=== PATIENT | female | born 1985 | race Two or more races ===

== ENCOUNTER → 2016-12-20 | Emergency (ER) | payer SELFPAY ==
[~2016-12-20] VITALS: Ht 154.9 cm; Wt 104.3 kg
[~2016-12-20] MED LIST: IBUPROFEN600 MG ORAL; Ketorolac 60mg Inj IM ONE; PEPCID20 MG ORAL
[2016-12-20 12:34] VITALS: BP 109/72
--- NOTE | 2016-12-21 13:31 | Emergency Room Report ---
History of Present Illness General Chief Complaint: Pain Source: Patient Present Illness HPI Patient is a 31-year-old female who presented after increased epigastric pain. Patient reported having increased burning sensation. Patient prior history of hiatal hernia. Patient stated that she been having increased symptoms with supine position spicy food. She denied recent black or bloody stools.The patient had moderate severity of symptoms. She had some mild nausea without vomiting. She denied any diarrhea or fever. Allergies: Coded Allergies: Shrimp (Verified Allergy, Unknown, 12/20/16) Patient History Past Medical History: see triage record Last Menstrual Period: on period Reviewed Nursing Documentation: PMH: Agreed, PSxH: Agreed Nursing Documentation-PMH Past Medical History: No Stated History Review of Systems All Other Systems: negative except mentioned in HPI Physical Exam Vital Signs Date Time Temp Pulse Resp B/P Pulse Ox O2 Delivery O2 Flow Rate FiO2 12/20/16 12:34 97.9 56 16 109/72 100 General Appearance: well appearing, no apparent distress, alert, GCS 15 Head: normocephalic, atraumatic ENT: hearing grossly normal, normal voice Neck: full range of motion, supple Respiratory: no respiratory distress, speaking full sentences Gastrointestinal: normal inspection, non tender, soft Musculoskeletal: no calf tenderness Neurologic: normal gait Psychiatric: mood/affect normal Skin: no rash Medical Decision Making Diagnostic Impression: Primary Impression: Hiatal hernia Additional Impression: Gastritis ER Course Patient presented for abdominal pain. Differential diagnoses included ischemic bowel, appendicitis, perforated viscus, abdominal aortic aneurysm, inferior myocardial infarction, viral gastroenteritis. Patient's benign exam and does not appear to require any further imaging or laboratory testing at this time Last Vital Signs Date Time Temp Pulse Resp B/P Pulse Ox O2 Delivery O2 Flow Rate FiO2 12/20/16 13:41 97.9 12/20/16 12:34 56 16 109/72 100 Status: improved Disposition: HOME, SELF-CARE Condition: Stable Scripts Ibuprofen* (MOTRIN*) 600 Mg Tablet 600 MG ORAL Q8H Y for For Pain, #30 TAB 0 Refills Prov: Dewayne Tellez 12/20/16 Famotidine (PEPCID) 20 Mg Tablet 20 MG ORAL DAILY, #7 TAB 0 Refills Prov: Dewayne Tellez 12/20/16 Patient Instructions: Gastritis, Adult, Hiatal Hernia Dewayne Tellez Dec 21, 2016 13:31
== END | disposition home or self-care (01) ==
LOC: EMR 13:20
DX: K44.9 Diaphragmatic hernia without obstruction or gangrene (principal); K29.70 Gastritis, unspecified, without bleeding; Z91.013 Allergy to seafood
CPT/HCPCS: 96372; 99283

== ENCOUNTER 2019-01-22 10:20 | Emergency (ER) | payer SELFPAY ==
[~2019-01-22] VITALS: Ht 154.9 cm; Wt 97.1 kg
[~2019-01-22 10:20] MED LIST changes: -Ketorolac 60mg Inj IM ONE
[2019-01-22] MEDS ORDERED: NKM (10:39)
--- NOTE | 2019-01-22 10:52 | NUR ---
ED Nurse Note: PT WALKED IN TO ER TODAY FROM HOME. AOX4. PT C/O MEDIAL ABDOMINAL PAIN, 06/29, RADIATING TO LOWER BACK X 2 WEEKS AGO. PT ALSO C/O NAUSEA BUT DENIES VOMITING OR DIARRHEA. PT STATES SHE ALSO NOTICED LEGS AND FEET SWELLING X 2 WEEKS AGO. ACTIVE BOWEL SOUNDS IN ALL QUADRANTS. ABDOMEN DISTENDED AND TENDER TO PALPATION. LAST BM X YESTERDAY WHICH PT STATES WAS FORMED. PT DENIES ANY BURNING OR PAINFUL URINATION OR INCREASE IN URINARY FREQUENCY. PT PRESENTS WITH NONPITTING SWELLING TO BILATERAL LOWER EXTREMITIES.
--- NOTE | 2019-01-22 10:52 | NUR ---
Note undone in EDM - 01/22/19 at 1057 by [facility] ED Nurse Note: PT WALKED IN TO ER TODAY FROM HOME. AOX4. PT C/O MEDIAL ABBDOMINAL PAIN, 9/10 X 2 WEEKS AGO. PT ALSO C/O NAUSEA BUT DENIES VOMITING OR DIARRHEA. PT STATES SHE ALSO NOTICED LEGS AND FEET SWELLING X 2 WEEKS AGO. ACTIVE BOWEL SOUNDS IN ALL QUADRANTS. ABDOMEN DISTENDED AND TENDER TO PALPATION. LAST BM X YESTERDAY WHICH PT STATES WAS FORMED. PT PRESENTS WITH NONPITTING SWELLING TO BILATERAL LOWER EXTREMITIES.
[2019-01-22 10:54] VITALS: BP 121/63
[2019-01-22] MEDS ORDERED: Morphine Sulfate 4mg/ml Inj (IV USE ONLY) ONE (11:56)
--- NOTE | 2019-01-22 11:57 | Emergency Room Report ---
History of Present Illness General Chief Complaint: Abdominal Pain Source: Patient Present Illness HPI 33-year-old female with a history of tubal ligation, no medical problems, comes to the ER with complaints of abdominal pain and back pain, she also reports his back pain rating to her abdomen bilaterally, she tried Motrin without relief, reports it has been going on for 2 weeks now and has been to other ERs and they just tell her to return if she has recurrent pain. Reports she has had similar pain in the past many years ago but cannot recall what triggered it. She reports the pain is not worse with eating, and she denies any other GI symptoms such as vomiting or diarrhea, denies urinary complaints, gynecologic complaints , fevers, chills, chest pain, shortness of breath, any other problems at all. Allergies: Coded Allergies: Shrimp (Verified Allergy, Unknown, 12/20/16) Patient History Past Medical History: see triage record Last Menstrual Period: 12/27/18 Reviewed Nursing Documentation: PMH: Agreed; PSxH: Agreed Nursing Documentation-PMH Past Medical History: No Stated History Review of Systems All Other Systems: negative except mentioned in HPI Physical Exam Vital Signs Date Time Temp Pulse Resp B/P (MAP) Pulse Ox O2 Delivery O2 Flow Rate FiO2 01/22/19 10:36 98.4 90 14 124/73 98 Room Air Sp02 EP Interpretation: reviewed, normal General Appearance: no apparent distress, alert, non-toxic Head: normocephalic Eyes: bilateral eye normal inspection, bilateral eye PERRL, bilateral eye EOMI ENT: normal ENT inspection, hearing grossly normal, normal pharynx, no angioedema, normal voice, moist mucus membranes Neck: normal inspection, full range of motion, supple, supple/symm/no masses Respiratory: chest non-tender, lungs clear, normal breath sounds, chest symmetrical, palpation of chest normal Cardiovascular #1: normal peripheral pulses, regular rate, rhythm Cardiovascular #2: 2+ radial (R), 2+ radial (L), 2+ dorsalis pedis (R), 2+ dorsalis pedis (L) Gastrointestinal: normal inspection, non tender, soft, no mass, no guarding, no rebound Rectal: deferred Genitourinary: normal inspection, no CVA tenderness Musculoskeletal: back normal, gait/station normal, normal range of motion, non- tender, no calf tenderness, Sheila's Sign negative Neurologic: alert, responsive, slip cover seamstress III-XII nml as tested, motor strength/tone normal, sensory intact, speech normal Psychiatric: judgement/insight normal, memory normal, mood/affect normal Skin: normal color, no rash, warm/dry, normal turgor Lymphatic: no adenopathy Medical Decision Making Diagnostic Impression: Primary Impression: Abdominal pain ER Course Patient reports abdominal pain, back pain, bilateral leg swelling, however there is no objective leg swelling at all, not even ankle edema. She has no palpable cords, negative Homans sign, and excellent pulses. Abdominal exam is also benign with no focal tenderness. Patient had a normal KUB, soft nontender abdomen, normal pulse examination, and wanted even more pain meds after first dose of morphine. I will give her a dose of Bentyl and discharged with Bentyl, follow-up with the PMD for GI referral. Has had no diarrhea, no vomiting here, chest pain, with a normal workup. Other X-Ray Diagnostic Results Other X-Ray Diagnostic Results : X-Ray ordered: kub # of Views/Limited Vs Complete: 1 View Indication: Pain EP Interpretation: Yes Interpretation: no dislocation, no soft tissue swelling, no fractures, nonspecific bowel gas, no sbo Impression: No acute disease Electronically Signed by: Roro Hernandez MD Last Vital Signs Date Time Temp Pulse Resp B/P (MAP) Pulse Ox O2 Delivery O2 Flow Rate FiO2 01/22/19 10:54 98.2 81 13 121/63 100 Room Air Disposition: HOME, SELF-CARE Condition: Stable RORO HERNANDEZ M.D Jan 22, 2019 11:57
[2019-01-22] MEDS ORDERED: Morphine Sulfate 4mg/ml Inj (IV USE ONLY) IVP ONE (12:00)
[2019-01-22 12:11] LABS: APPEARANCE,URINE SLIGHTLY CLOUDY; BILIRUBIN, URINE NEGATIVE (NEGATIVE); COLOR,URINE PALE YELLOW; GLUCOSE, URINE (UA) NEGATIVE (NEGATIVE); KETONES,URINE NEGATIVE (NEGATIVE); LEUKOCYTE ESTERASE ,URINE NEGATIVE (NEGATIVE); NITRITE,URINE NEGATIVE (NEGATIVE); PH,URINE 5 (4.5-8.0); PROTEIN,URINE NEGATIVE (NEGATIVE); UROBILINOGEN,URINE NORMAL MG/DL (0.0-1.0)
[2019-01-22 12:13] LABS: BASOPHILS % (AUTO) 0.5 % (0.0-2.0); EOSINOPHILS % (AUTO) 2.6 % (0.0-3.0); HEMOGLOBIN 13.4 G/DL (12.0-16.0); LYMPHOCYTES % (AUTO) 17.7 % (20.0-45.0); MEAN CORPUSCULAR VOLUME 90 FL (80-99); MONOCYTES % (AUTO) 4.3 % (1.0-10.0); NEUTROPHILS % (AUTO) 74.9 % (45.0-75.0); PLATELET COUNT 317 K/UL (150-450); RED BLOOD COUNT 4.44 M/UL (4.20-5.40); RED CELL DISTRIBUTION WIDTH 11.5 % (11.6-14.8); WHITE BLOOD COUNT 9.1 K/UL (4.8-10.8)
[2019-01-22 12:16] LABS: ANION GAP 9 mmol/L (5-15); BLOOD UREA NITROGEN 16 mg/dL (7-18); CALCIUM 8.9 MG/DL (8.5-10.1); CARBON DIOXIDE 25 MMOL/L (21-32); CHLORIDE 105 MMOL/L (98-107); CREATININE 0.8 MG/DL (0.55-1.30); POTASSIUM 4.1 MMOL/L (3.5-5.1); SODIUM 139 MMOL/L (136-145)
[2019-01-22 12:28] LABS: ALANINE AMINOTRANSFERASE 36 U/L (12-78); ALBUMIN 3.3 G/DL (3.4-5.0); ALBUMIN/GLOBULIN RATIO 0.8 (1.0-2.7); ALKALINE PHOSPHATASE 104 U/L (46-116); ASPARTATE AMINO TRANSFERASE 22 U/L (15-37); BILIRUBIN,TOTAL 0.3 MG/DL (0.2-1.0)
--- NOTE | 2019-01-22 12:55 | NUR ---
ED Nurse Note: RADIOLOGY CALLED FOR XRAY.
[2019-01-22] MEDS ORDERED: COLACE100 MG ORAL (13:55)
[2019-01-22] MEDS ORDERED: DICYCLOMINE HCL10 MG PO (13:55)
--- NOTE | 2019-01-22 14:01 | Diagnostic Imaging Report ---
Indication: Abdominal pain Technique: Supine view of the abdomen Comparison: none Findings: Bowel gas pattern is unremarkable. No masses or unusual calcifications. Impression: Negative
[2019-01-22] MEDS ORDERED: Dicyclomine HCl 10mg/5ml oral soln ORAL ONE (14:15)
[2019-01-22] MEDS ORDERED: ZOFRAN4 M1 ORAL (14:15)
[2019-01-22 14:25] VITALS: BP 127/72
--- NOTE | 2019-01-22 14:25 | NUR ---
ER Nurse Note: PT LAYING PEACEFULLY IN BED IN NAD. AOX4. PRESCRIPTIONS AND DISCHARGE PAPERWORK EXPLAINED TO PT. PT VERBALIZES UNDERSTANDING AND ALL QUESTIONS ANSWERED. PRESCRIPTIONS AND DISCHARGE PAPERWORK GIVEN TO PT, IV AND ID WRISTBAND REMOVED. PT WALKED OUT OF ER WITH STEADY GAIT AND ALL BELONGINGS.
== END 2019-01-22 14:25 | disposition home or self-care (01) ==
LOC: EMR 11:50
DX: R10.9 Unspecified abdominal pain (principal); M54.9 Dorsalgia, unspecified
CPT/HCPCS: 36415; 74018; 80053; 81003; 81025; 83690; 83880; 84484; 85025; 96374; 96375; 99284; J2270; J2405

== ENCOUNTER 2019-06-25 18:51 | Emergency (ER) | payer SELFPAY ==
[~2019-06-25] VITALS: Ht 154.9 cm; Wt 100.2 kg
[~2019-06-25 18:51] MED LIST changes: +COLACE100 MG ORAL; +DICYCLOMINE HCL10 MG PO; +NKM; +ZOFRAN4 M1 ORAL
[2019-06-25] MEDS ORDERED: TRAMADOL HCL50 MG ORAL (19:06)
--- NOTE | 2019-06-25 19:15 | NUR ---
ED Nurse Note: Recieved pt from home, c/o severe 07/29 headache w/ dizziness and sorrethroat, pt voice is hoarse, states has been for 1 week, pt seen by another MD and given meds but not effective, pt denies fevers, diarrhea, nausea or vomiting, pt denies any other complaitns or discomforts.
[2019-06-25] MEDS ORDERED: Meclizine 25mg tab ORAL ONE (19:30)
[2019-06-25] MEDS ORDERED: Cyclobenzaprine 10mg Tab ORAL ONE (20:00)
[2019-06-25] MEDS ORDERED: CYCLOBENZAPRINE10 MG ORAL (20:12)
[2019-06-25 20:20] VITALS: BP 126/81
[2019-06-25 20:30] VITALS: BP 121/85
[2019-06-25] MEDS ORDERED: MECLIZINE HCL25 MG ORAL (20:30)
--- NOTE | 2019-06-25 20:30 | NUR ---
ER DISCHARGE NOTE: Patient is cleared to be discharged per ERMD, pt is aox4, on room air, with stable vital signs. pt was given dc and prescription instructions, pt was able to verbalize understanding, pt id band removed without complications. pt is able to ambulate with steady gait. pt took all belongings.
--- NOTE | 2019-06-25 20:49 | Emergency Room Report ---
History of Present Illness General Chief Complaint: Headache Source: Patient Present Illness HPI 33-year-old female with h/o vertigo complaining intermittent headache x 2 weeks , with dizziness and nausea. Pain is 8/10, described as pressure and tight. Denies sudden onset. Denies headache as "being worst headache of life." Denies vision change, numbness, weakness. Normal gait. No bowel/bladder incontinence.. Allergies: Coded Allergies: Shrimp (Verified Allergy, Unknown, 12/20/16) Patient History Past Medical History: none Past Surgical History: Social History: Denies: smoking, alcohol use, drug use Last Menstrual Period: 06/21/2019 Nursing Documentation-[facility] Past Medical History: No Stated History Review of Systems All Other Systems: negative except mentioned in HPI Physical Exam Vital Signs Date Time Temp Pulse Resp B/P (MAP) Pulse Ox O2 Delivery O2 Flow Rate FiO2 06/25/19 19:01 98.6 81 16 121/85 (97) 98 Room Air Sp02 EP Interpretation: reviewed, normal General Appearance: no apparent distress, alert, GCS 15, non-toxic Eyes: bilateral eye normal inspection, bilateral eye PERRL Respiratory: chest non-tender, lungs clear, normal breath sounds, speaking full sentences Cardiovascular #1: regular rate, rhythm, no edema Neurologic: alert, oriented x3, responsive, motor strength/tone normal, sensory intact, normal gait, speech normal Skin: no rash, warm/dry Medical Decision Making PA Attestation This patient was seen under the direct supervision of Dr. George, who directed all aspects of care and diagnostic interpretation. Diagnostic Impression: Primary Impression: Headache ER Course ED course HPI: 33-year-old female with h/o vertigo complaining intermittent headache x 2 weeks , with dizziness and nausea. Pain is 8/10, described as pressure and tight. Denies sudden onset. Denies headache as "being worst headache of life." Denies vision change, numbness, weakness. Normal gait. No bowel/bladder incontinence. Pt has no focal neural, arm drift, facial droop, unilateral weakness or numbness , slurred speech, vision impair, therefore acute intracranial emergency is unlikely. HPI & PE consistent with: Headache, vertigo Orders/ Interventions: Patient has a benign exam and does not appear to require any imaging or laboratory testing at this time. Normal neuro exam, no focal neurologic deficits. Medicated with Zofran 4 mg, meclizine 25 mg and Flexeril 10 mg p.o. with improvement of symptoms. Disposition: At this time pt. is stable for d/c to home. She is discharged with prescription for meclizine 25 mg once daily and Flexeril 10mg qhs. Will provide printed patient care instructions, and any necessary prescriptions. Care plan and follow up instructions have been discussed with the patient prior to discharge. Please note that this Emergency Department Report was dictated using [employer] psychiatrist technology software, occasionally this can lead to erroneous entry secondary to interpretation by the dictation equipment. Last Vital Signs Date Time Temp Pulse Resp B/P (MAP) Pulse Ox O2 Delivery O2 Flow Rate FiO2 06/25/19 19:01 98.6 81 16 121/85 (97) 98 Room Air Status: unchanged Disposition: HOME, SELF-CARE Condition: Stable Scripts Meclizine Hcl* (MECLIZINE*) 25 Mg Tablet 25 MG ORAL DAILY, #10 TAB Prov: Brandon Desouza 06/25/19 Cyclobenzaprine Hcl* (FLEXERIL*) 10 Mg Tablet 10 MG ORAL BEDTIME for 10 Days, #10 TAB 0 Refills Prov: Brandon Desouza 06/25/19 Referrals: NOT CHOSEN IPA/MD,REFERRING (PCP) [facility] Suzanne Heller Comp. [facility] Patient Instructions: Vertigo, [id number], General Headache Without Cause Additional Instructions: Take prescription as prescribed. Follow-up with PCP in 2 to 3 days or return to ER if worsening symptoms, new symptoms or sudden change in condition. Brandon Desouza Jun 25, 2019 20:49
== END 2019-06-25 20:30 | disposition home or self-care (01) ==
LOC: EMR 20:26
DX: R51 Headache (principal); Z91.013 Allergy to seafood
CPT/HCPCS: 99282

== ENCOUNTER 2020-01-14 18:42 | Inpatient (IN) | payer MEDICAID ==
[~2020-01-14] VITALS: Ht 154.9 cm; Wt 102.1 kg
[~2020-01-14 18:42] MED LIST changes: +CYCLOBENZAPRINE10 MG ORAL; +MECLIZINE HCL25 MG ORAL; +TRAMADOL HCL50 MG ORAL
--- NOTE | 2020-01-14 19:14 | Emergency Room Report ---
History of Present Illness General Chief Complaint: Abdominal Pain Source: Patient Present Illness HPI 34-year-old female presents with nausea, vomiting, epigastric pain that radiates to the back, after eating earlier in the morning, she endorses a sharp pain no alleviating factors severity is moderate, intermittent, she denies any chest pain or shortness of breath, patient states this is been ongoing intermittently for the past 2 weeks, patient reports a past medical history significant for tubal ligation, 3 C-sections, patient presents for evaluation Allergies: Coded Allergies: IODINE (Verified Allergy, Unknown, 01/14/20) Shrimp (Verified Allergy, Unknown, 12/20/16) COVID-19 Screening Contact w/high risk pt: No Recent Travel to affected area: No Experienced COVID-19 symptoms?: No Patient History Past Medical History: see triage record Last Menstrual Period: DECEMBER 2019 Reviewed Nursing Documentation: PMH: Agreed; PSxH: Agreed Nursing Documentation-PMH Past Medical History: No Stated History Review of Systems All Other Systems: negative except mentioned in HPI Physical Exam Vital Signs Date Time Temp Pulse Resp B/P (MAP) Pulse Ox O2 Delivery O2 Flow Rate FiO2 01/14/20 18:48 98.4 75 18 123/79 (94) 97 Room Air Sp02 EP Interpretation: reviewed, normal General Appearance: well appearing, no apparent distress, alert Head: normocephalic, atraumatic Eyes: bilateral eye PERRL, bilateral eye EOMI ENT: uvula midline, moist mucus membranes Neck: supple, thyroid normal, supple/symm/no masses Respiratory: lungs clear, no respiratory distress, no retraction, no accessory muscle use Cardiovascular #1: normal peripheral pulses, regular rate, rhythm, no edema, no gallop, no murmur Gastrointestinal: soft, no guarding, no rebound, tenderness - epigastrically, right upper quadrant Musculoskeletal: normal inspection Neurologic: alert, oriented x3 Psychiatric: mood/affect normal Skin: no rash, warm/dry Medical Decision Making Diagnostic Impression: Primary Impression: Impacted gallstone of gallbladder ER Course 34-year-old female presents with abdominal pain concerning for cholecystitis versus cholelithiasis versus choledocholithiasis Ultrasound shows an impacted gallstone in the neck of the gallbladder Patient requiring multiple rounds of pain control patient will need to be admitted for possible surgical intervention Patient admitted to Dr. Rocha Laboratory Tests Test 01/14/20 19:10 White Blood Count 8.5 K/UL (4.8-10.8) Red Blood Count 4.87 M/UL (4.20-5.40) Hemoglobin 14.6 G/DL (12.0-16.0) Hematocrit 44.6 % (37.0-47.0) Mean Corpuscular Volume 92 FL (80-99) Mean Corpuscular Hemoglobin 30.1 PG (27.0-31.0) Mean Corpuscular Hemoglobin Concent 32.8 G/DL (32.0-36.0) Red Cell Distribution Width 12.0 % (11.6-14.8) Platelet Count 386 K/UL (150-450) Mean Platelet Volume 7.0 FL (6.5-10.1) Neutrophils (%) (Auto) 59.1 % (45.0-75.0) Lymphocytes (%) (Auto) 35.1 % (20.0-45.0) Monocytes (%) (Auto) 3.3 % (1.0-10.0) Eosinophils (%) (Auto) 1.6 % (0.0-3.0) Basophils (%) (Auto) 0.9 % (0.0-2.0) Prothrombin Time 9.6 SEC (9.30-11.50) Prothrombin Time INR 0.9 (0.9-1.1) Activated Partial Thromboplast Time 28 SEC (23-33) Urine Color Pale yellow Urine Appearance Clear Urine pH 5 (4.5-8.0) Urine Specific [place] 1.010 (1.005-1.035) Urine Protein Negative (NEGATIVE) Urine Glucose (UA) Negative (NEGATIVE) Urine Ketones Negative (NEGATIVE) Urine Blood Negative (NEGATIVE) Urine Nitrite Negative (NEGATIVE) Urine Bilirubin Negative (NEGATIVE) Urine Urobilinogen Normal MG/DL (0.0-1.0) Urine Leukocyte Esterase Negative (NEGATIVE) Urine HCG, Qualitative Negative (NEGATIVE) Sodium Level 137 MMOL/L (136-145) Potassium Level 3.8 MMOL/L (3.5-5.1) Chloride Level 101 MMOL/L (98-107) Carbon Dioxide Level 25 MMOL/L (21-32) Anion Gap 11 mmol/L (5-15) Blood Urea Nitrogen 18 mg/dL (7-18) Creatinine 0.7 MG/DL (0.55-1.30) Estimated Glomerular Filtration Rate > 60 mL/min (>60) Glucose Level 88 MG/DL (74-106) Calcium Level 9.3 MG/DL (8.5-10.1) Total Bilirubin 0.2 MG/DL (0.2-1.0) Aspartate Amino Transferase (AST) 19 U/L (15-37) Alanine Aminotransferase (ALT) 32 U/L (12-78) Alkaline Phosphatase 109 U/L (46-116) Total Protein 8.5 G/DL (6.4-8.2) H Albumin 4.3 G/DL (3.4-5.0) Globulin 4.2 g/dL Albumin/Globulin Ratio 1.0 (1.0-2.7) Lipase 135 U/L (73-393) Human Chorionic Gonadotropin, Quant < 1 mIU/mL (1-6) L CT/MRI/US Diagnostic Results CT/MRI/US Diagnostic Results : Impression Final Report EXAM: US Abdomen Complete CLINICAL HISTORY: ABD PAIN TECHNIQUE: Real-time ultrasound of the abdomen with image documentation. COMPARISON: No relevant prior studies available. FINDINGS: Liver: No significant abnormality. No mass. No intrahepatic bile duct dilation. Gallbladder: A 1.2 cm gallstone is present in the gallbladder. No gallbladder wall thickening or pericholecystic fluid. Common bile duct: Unremarkable as visualized. No stones. No dilation. Pancreas: Unremarkable as visualized. Kidneys: No significant abnormality. No stones. No solid mass. No hydronephrosis. Spleen: No significant abnormality. No splenomegaly. Aorta: No significant abnormality. No aneurysm. Inferior vena cava: No significant abnormality. IMPRESSION: Cholelithiasis without sonographic evidence of acute cholecystitis. Radiologist: Amanda Pardo MD Electronically Signed: 01/14/20 19:53 Study ready at 19:46 and initial results transmitted at 19:53 Last Vital Signs Date Time Temp Pulse Resp B/P (MAP) Pulse Ox O2 Delivery O2 Flow Rate FiO2 01/14/20 18:48 98.4 75 18 123/79 (94) 97 Room Air Disposition: ADMITTED INPATIENT Condition: Stable Jim Long MD Jan 14, 2020 19:14
[2020-01-14] MEDS ORDERED: Ketorolac 30mg Inj IV ONE (19:15)
[2020-01-14] MEDS ORDERED: Morphine Sulfate 4mg/ml Inj (IV USE ONLY) IVP ONE ×2 (19:15→20:00)
[2020-01-14 19:24] VITALS: BP 123/79
--- NOTE | 2020-01-14 19:26 | NUR ---
ER Nurse Note: Pt walked in c/o abd pain that radaites to back for the past 2 weeks. Pt stated pain is getting worse with n/v/d. Pt noted slight blood in her vomit and diarrhea. Pt stated pain is worse after she eats. Pt stated pain is worse on palpation; bowel sounds heard in all quadrants. IV established, blood and urine collected and sent. All meds given per ERMD orders; US at bedside. Will continue to montior.
[2020-01-14 19:29] LABS: BASOPHILS % (AUTO) 0.9 % (0.0-2.0); EOSINOPHILS % (AUTO) 1.6 % (0.0-3.0); HEMATOCRIT 44.6 % (37.0-47.0); HEMOGLOBIN 14.6 G/DL (12.0-16.0); LYMPHOCYTES % (AUTO) 35.1 % (20.0-45.0); MEAN CORPUSCULAR VOLUME 92 FL (80-99); MONOCYTES % (AUTO) 3.3 % (1.0-10.0); NEUTROPHILS % (AUTO) 59.1 % (45.0-75.0); PLATELET COUNT 386 K/UL (150-450); RED BLOOD COUNT 4.87 M/UL (4.20-5.40); WHITE BLOOD COUNT 8.5 K/UL (4.8-10.8)
[2020-01-14 19:31] LABS: APPEARANCE,URINE CLEAR; BILIRUBIN, URINE NEGATIVE (NEGATIVE); COLOR,URINE PALE YELLOW; GLUCOSE, URINE (UA) NEGATIVE (NEGATIVE); KETONES,URINE NEGATIVE (NEGATIVE); LEUKOCYTE ESTERASE ,URINE NEGATIVE (NEGATIVE); NITRITE,URINE NEGATIVE (NEGATIVE); PH,URINE 5 (4.5-8.0); PROTEIN,URINE NEGATIVE (NEGATIVE); UROBILINOGEN,URINE NORMAL MG/DL (0.0-1.0)
[2020-01-14 19:49] LABS: ANION GAP 11 mmol/L (5-15); BLOOD UREA NITROGEN 18 mg/dL (7-18); CALCIUM 9.3 MG/DL (8.5-10.1); CARBON DIOXIDE 25 MMOL/L (21-32); CHLORIDE 101 MMOL/L (98-107); CREATININE 0.7 MG/DL (0.55-1.30); POTASSIUM 3.8 MMOL/L (3.5-5.1); SODIUM 137 MMOL/L (136-145)
[2020-01-14 19:51] LABS: INR 0.9 (0.9-1.1)
[2020-01-14 19:53] LABS: ALANINE AMINOTRANSFERASE 32 U/L (12-78); ALBUMIN 4.3 G/DL (3.4-5.0); ALKALINE PHOSPHATASE 109 U/L (46-116); ASPARTATE AMINO TRANSFERASE 19 U/L (15-37); BILIRUBIN,TOTAL 0.2 MG/DL (0.2-1.0)
--- NOTE | 2020-01-14 19:54 | Diagnostic Imaging Report ---
EXAM: US Abdomen Complete CLINICAL HISTORY: ABD PAIN TECHNIQUE: Real-time ultrasound of the abdomen with image documentation. COMPARISON: No relevant prior studies available. FINDINGS: Liver: No significant abnormality. No mass. No intrahepatic bile duct dilation. Gallbladder: A 1.2 cm gallstone is present in the gallbladder. No gallbladder wall thickening or pericholecystic fluid. Common bile duct: Unremarkable as visualized. No stones. No dilation. Pancreas: Unremarkable as visualized. Kidneys: No significant abnormality. No stones. No solid mass. No hydronephrosis. Spleen: No significant abnormality. No splenomegaly. Aorta: No significant abnormality. No aneurysm. Inferior vena cava: No significant abnormality. IMPRESSION: Cholelithiasis without sonographic evidence of acute cholecystitis.
--- NOTE | 2020-01-14 20:12 | NUR ---
ER Nurse Note: Pt stated pain; pain meds given and will reassess. Pt VSS, no signs of distress. No n/v. Will continue to montior.
[2020-01-14 20:14] VITALS: BP 130/76
--- NOTE | 2020-01-14 20:55 | NUR ---
ER Nurse Note: Report given to PEGGY Almendarez for continutiy of care. Pt ambulatory, VSS, no signs of distress.
[2020-01-14 20:56] VITALS: BP 126/78
--- NOTE | 2020-01-14 21:20 | NUR ---
NURSE NOTES: Received report from [facility]Y [facility] ED. Pt arrived to the unit @2120 via gurney. Vitals 97.3F 131/99 BP 100% O2 90HR. Pt c/o pain 10/10 on ABD. Pt is ambulatory and on room air, AAO x 4. Able to make needs known. All belongings reviewed. Orientation to the facility and unit given. Family at bedside. Admission orders entered already. IV site intact. Skin is intact. Pt took ibuprofen and vitamin D from home but doesn't remember dose. Bed locked, lowest position, alarm on, side rails up, call light within reach. Will continue to monitor.
[2020-01-14] MEDS ORDERED: Morphine Sulfate 4mg/ml Inj (IV USE ONLY) IVP PRN (21:30)
[2020-01-14] MEDS ORDERED: LORazepam Inj 2mg/ml 1ml IV PRN (21:30)
[2020-01-14] MEDS: Piperacillin/Tazobactam 3.375 GM in NS 110 ML IVPB SCH (22:50)
[2020-01-14] MEDS: D5 1/2NS 1,000 ML IV SCH (22:50)
[2020-01-14] MEDS: Morphine Sulfate 4mg/ml Inj (IV USE ONLY) IVP PRN (23:05)
[2020-01-14] MEDS ORDERED: IBUPROFEN200 MG ORAL (23:47)
[2020-01-14] MEDS ORDERED: vitamin d (23:47)
[2020-01-15] VITALS: BP 118/70
[2020-01-15] MEDS: Morphine Sulfate 4mg/ml Inj (IV USE ONLY) IVP PRN ×4 (03:21→19:57)
[2020-01-15 04:00] VITALS: BP 116/64
[2020-01-15] MEDS: Piperacillin/Tazobactam 3.375 GM in NS 110 ML IVPB SCH ×3 (06:00→22:38)
[2020-01-15 07:27] LABS: ALANINE AMINOTRANSFERASE 25 U/L (12-78); ALBUMIN 3.3 G/DL (3.4-5.0); ALBUMIN/GLOBULIN RATIO 0.8 (1.0-2.7); ALKALINE PHOSPHATASE 87 U/L (46-116); ANION GAP 4 mmol/L (5-15); ASPARTATE AMINO TRANSFERASE 19 U/L (15-37); BILIRUBIN,TOTAL 0.4 MG/DL (0.2-1.0); BLOOD UREA NITROGEN 21 mg/dL (7-18); CALCIUM 8.8 MG/DL (8.5-10.1); CARBON DIOXIDE 29 MMOL/L (21-32); CHLORIDE 105 MMOL/L (98-107); CHOLESTEROL 181 MG/DL (< 200); CREATININE 0.9 MG/DL (0.55-1.30); HDL CHOLESTEROL 57 MG/DL (40-60); POTASSIUM 4.4 MMOL/L (3.5-5.1); SODIUM 138 MMOL/L (136-145); TRIGLYCERIDES 64 MG/DL (30-150)
[2020-01-15 07:31] LABS: BASOPHILS % (AUTO) 0.7 % (0.0-2.0); EOSINOPHILS % (AUTO) 2.5 % (0.0-3.0); HEMATOCRIT 38.6 % (37.0-47.0); HEMOGLOBIN 13.4 G/DL (12.0-16.0); LYMPHOCYTES % (AUTO) 34.9 % (20.0-45.0); MEAN CORPUSCULAR VOLUME 89 FL (80-99); PLATELET COUNT 313 K/UL (150-450); RED BLOOD COUNT 4.34 M/UL (4.20-5.40); WHITE BLOOD COUNT 7.8 K/UL (4.8-10.8)
--- NOTE | 2020-01-15 07:39 | NUR ---
HAND-OFF: Report given to PEGGY Barrera.
--- NOTE | 2020-01-15 07:45 | NUR ---
NURSE NOTES: Pt in bed comfortably. A&Ox4, able to make needs known. Breathing even and unlabored. c/o pain 10/10 on ABD. will administer pain med PRN as ordered. IV intact and IVF infusing. discussed with plans of care. Bed in lowest position. 2 Side rails up. Bed locked. Call light within reach. Will continue to monitor.
[2020-01-15 08:00] VITALS: BP 139/81
[2020-01-15] MEDS: Pantoprazole Inj IV SCH (08:46)
[2020-01-15] MEDS: D5 1/2NS 1,000 ML IV SCH ×2 (08:52→14:37)
[2020-01-15 12:00] VITALS: BP 101/55
--- NOTE | 2020-01-15 12:27 | History & Physical ---
History and Physical History & Physicial HP dictated #[id number] Tevin Rocha MD Jan 15, 2020 12:27
--- NOTE | 2020-01-15 14:06 | Consultation ---
History of Present Illness General Date patient seen: Jan 15, 2020 Reason for Hospitalization: Abdominal Pain Present Illness HPI 34-year-old female presents with nausea, vomiting, epigastric pain that radiates to the back, after eating earlier in the morning prior to admission, she endorses a sharp pain no alleviating factors severity is moderate, intermittent, she denies any chest pain or shortness of breath, patient states this is been ongoing intermittently for the past 2 weeks, patient reports a past medical history significant for tubal ligation, 3 C-sections, patient presents for evaluation. labs okay. us with gallstone. admitted for care. surgery called to evaluate. Allergies: Coded Allergies: IODINE (Verified Allergy, Unknown, 01/14/20) Shrimp (Verified Allergy, Unknown, 12/20/16) COVID-19 Screening Contact w/high risk pt: No Recent Travel to affected area: No Experienced COVID-19 symptoms?: No Medication History Scheduled PRN Ibuprofen (Ibuprofen*), 250 MG ORAL for For Pain, (Reported) Miscellaneous Medications [vitamin d], TAB, (Reported) Discontinued Medications Cyclobenzaprine Hcl* (Flexeril*), 10 MG ORAL BEDTIME Discontinued Reason: Pt stopped taking med Dicyclomine Hcl* (Dicyclomine Hcl*), 10 MG PO QID Discontinued Reason: Pt stopped taking med Docusate Sodium* (Colace*), 100 MG ORAL THREE TIMES A DAY Discontinued Reason: Pt stopped taking med Famotidine (Pepcid), 20 MG ORAL DAILY Discontinued Reason: Pt stopped taking med Ibuprofen* (Motrin*), 600 MG ORAL Q8H PRN for For Pain Discontinued Reason: Pt stopped taking med Meclizine Hcl* (Meclizine*), 25 MG ORAL DAILY Discontinued Reason: Pt stopped taking med No Known Medications* (NKM - No Known Medications*), 0 ., (Reported) Discontinued Reason: Pt stopped taking med Ondansetron (Zofran), 4 MG ORAL Q6H PRN for Nausea & Vomiting Discontinued Reason: Pt stopped taking med Tramadol Hcl* (Ultram*), 50 MG ORAL Q6H PRN for For Pain, (Reported) Discontinued Reason: Pt stopped taking med Patient History History Provided By: Patient Healthcare decision maker Resuscitation status Full Code Advanced Directive on File Past Medical/Surgical History Past Medical/Surgical History: (1) Gastritis (2) Hiatal hernia (3) Headache (4) Impacted gallstone of gallbladder Review of Systems Review of Symptoms General ROS: no weight loss or fever Psychological ROS: no depression or mood changes, no memory loss Ophthalmic ROS: no visual changes or eye irritation ENT ROS: no nasal congestion, hearing loss, dizziness Allergy and Immunology ROS: no allergic symptoms or urticaria Hematological and Lymphatic ROS: no swollen glands, unusual bleeding or bruising Endocrine ROS: no polyuria, polydipsia, weight changes, temperature intolerance Respiratory ROS: no cough, shortness of breath, or wheezing Cardiovascular ROS: no chest pain or dyspnea on exertion Gastrointestinal ROS: abdominal pain, no bright red blood in stool. Musculoskeletal ROS: no myalgias or arthralgias Neurological ROS: no TIA or stroke symptoms Dermatological ROS: no new or changing skin lesions, rashes or pruritis Physical Exam Physical Exam General appearance: alert, cooperative, no distress, appears stated age Head: Normocephalic, without obvious abnormality, atraumatic Eyes: conjunctivae/corneas clear. PERRL, EOM's intact. Fundi benign Throat: Lips, mucosa, and tongue normal. Teeth and gums normal Neck: supple, symmetrical, trachea midline, no adenopathy, thyroid: not enlarged, symmetric, no tenderness/mass/nodules, no carotid bruit and no JVD Lungs: clear to auscultation bilaterally Heart: regular rate and rhythm, S1, S2 normal, no murmur, click, rub or gallop Abdomen: soft, non-tender. Bowel sounds normal. No masses, no organomegaly Extremities: extremities normal, atraumatic, no cyanosis or edema Pulses: 2+ and symmetric Skin: Skin color, texture, turgor normal. No rashes or lesions Neurologic: Grossly normal Last 24 Hour Vital Signs Date Time Temp Pulse Resp B/P (MAP) Pulse Ox O2 Delivery O2 Flow Rate FiO2 01/15/20 12:00 98.2 65 20 101/55 (70) 97 01/15/20 09:16 97.2 01/15/20 08:00 97.2 81 20 139/81 (100) 96 01/15/20 04:00 97.5 68 20 116/64 (81) 97 01/15/20 00:00 98.3 75 20 118/70 (86) 98 01/14/20 23:29 Room Air 01/14/20 21:15 98.4 84 16 124/80 99 Room Air 01/14/20 20:56 98.4 88 18 126/78 100 Room Air 01/14/20 20:38 98.4 01/14/20 20:14 98.4 82 18 130/76 97 Room Air 01/14/20 19:43 98.4 01/14/20 19:43 98.4 01/14/20 19:24 98.4 75 18 123/79 97 Room Air 01/14/20 19:24 75 18 Room Air 01/14/20 18:48 98.4 75 18 123/79 (94) 97 Room Air Laboratory Tests Test 01/14/20 19:10 01/15/20 05:40 White Blood Count 8.5 K/UL (4.8-10.8) 7.8 K/UL (4.8-10.8) Red Blood Count 4.87 M/UL (4.20-5.40) 4.34 M/UL (4.20-5.40) Hemoglobin 14.6 G/DL (12.0-16.0) 13.4 G/DL (12.0-16.0) Hematocrit 44.6 % (37.0-47.0) 38.6 % (37.0-47.0) Mean Corpuscular Volume 92 FL (80-99) 89 FL (80-99) Mean Corpuscular Hemoglobin 30.1 PG (27.0-31.0) 30.8 PG (27.0-31.0) Mean Corpuscular Hemoglobin Concent 32.8 G/DL (32.0-36.0) 34.7 G/DL (32.0-36.0) Red Cell Distribution Width 12.0 % (11.6-14.8) 11.0 % (11.6-14.8) L Platelet Count 386 K/UL (150-450) 313 K/UL (150-450) Mean Platelet Volume 7.0 FL (6.5-10.1) 6.3 FL (6.5-10.1) L Neutrophils (%) (Auto) 59.1 % (45.0-75.0) 55.0 % (45.0-75.0) Lymphocytes (%) (Auto) 35.1 % (20.0-45.0) 34.9 % (20.0-45.0) Monocytes (%) (Auto) 3.3 % (1.0-10.0) 7.0 % (1.0-10.0) Eosinophils (%) (Auto) 1.6 % (0.0-3.0) 2.5 % (0.0-3.0) Basophils (%) (Auto) 0.9 % (0.0-2.0) 0.7 % (0.0-2.0) Prothrombin Time 9.6 SEC (9.30-11.50) Prothromb Time International Ratio 0.9 (0.9-1.1) Activated Partial Thromboplast Time 28 SEC (23-33) Urine Color Pale yellow Urine Appearance Clear Urine pH 5 (4.5-8.0) Urine Specific [place] 1.010 (1.005-1.035) Urine Protein Negative (NEGATIVE) Urine Glucose (UA) Negative (NEGATIVE) Urine Ketones Negative (NEGATIVE) Urine Blood Negative (NEGATIVE) Urine Nitrite Negative (NEGATIVE) Urine Bilirubin Negative (NEGATIVE) Urine Urobilinogen Normal MG/DL (0.0-1.0) Urine Leukocyte Esterase Negative (NEGATIVE) Urine HCG, Qualitative Negative (NEGATIVE) Sodium Level 137 MMOL/L (136-145) 138 MMOL/L (136-145) Potassium Level 3.8 MMOL/L (3.5-5.1) 4.4 MMOL/L (3.5-5.1) Chloride Level 101 MMOL/L (98-107) 105 MMOL/L (98-107) Carbon Dioxide Level 25 MMOL/L (21-32) 29 MMOL/L (21-32) Anion Gap 11 mmol/L (5-15) 4 mmol/L (5-15) L Blood Urea Nitrogen 18 mg/dL (7-18) 21 mg/dL (7-18) H Creatinine 0.7 MG/DL (0.55-1.30) 0.9 MG/DL (0.55-1.30) Estimat Glomerular Filtration Rate > 60 mL/min (>60) > 60 mL/min (>60) Glucose Level 88 MG/DL (74-106) 102 MG/DL (74-106) Calcium Level 9.3 MG/DL (8.5-10.1) 8.8 MG/DL (8.5-10.1) Total Bilirubin 0.2 MG/DL (0.2-1.0) 0.4 MG/DL (0.2-1.0) Aspartate Amino Transf (AST/SGOT) 19 U/L (15-37) 19 U/L (15-37) Alanine Aminotransferase (ALT/SGPT) 32 U/L (12-78) 25 U/L (12-78) Alkaline Phosphatase 109 U/L (46-116) 87 U/L (46-116) Total Protein 8.5 G/DL (6.4-8.2) H 7.3 G/DL (6.4-8.2) Albumin 4.3 G/DL (3.4-5.0) 3.3 G/DL (3.4-5.0) L Globulin 4.2 g/dL 4.0 g/dL Albumin/Globulin Ratio 1.0 (1.0-2.7) 0.8 (1.0-2.7) L Lipase 135 U/L (73-393) Human Chorionic Gonadotropin, Quant < 1 mIU/mL (1-6) L Triglycerides Level 64 MG/DL (30-150) Cholesterol Level 181 MG/DL (< 200) LDL Cholesterol 110 mg/dL (<100) H HDL Cholesterol 57 MG/DL (40-60) Cholesterol/HDL Ratio 3.2 (3.3-4.4) L Height (Feet): 5 Height (Inches): 1.00 Weight (Pounds): 225 Medications Current Medications Medications (Trade) Dose Ordered Sig/Thelma Route PRN Reason Start Time Stop Time Status Last Admin Dose Admin Acetaminophen (Tylenol) 650 mg Q4H PRN ORAL Mild Pain (Pain Scale 1-3) 01/14/20 21:30 02/13/20 21:29 Dextrose (Dextrose 50%) 25 ml Q30M PRN IV Hypoglycemia 01/14/20 21:30 04/13/20 21:29 Dextrose (Dextrose 50%) 50 ml Q30M PRN IV Hypoglycemia 01/14/20 21:30 04/13/20 21:29 Dextrose/Sodium Chloride 1,000 ml @ 100 mls/hr Q10H IV 01/14/20 22:22 02/13/20 22:21 01/15/20 08:52 Lorazepam (Ativan 2mg/ml 1ml) 0.5 mg Q4H PRN IV For Anxiety 01/14/20 21:30 01/21/20 21:29 Morphine Sulfate (Morphine Sulfate) 4 mg Q3H PRN IVP Moderate Pain (Pain Scale 4-6) 01/14/20 21:30 01/21/20 21:29 Morphine Sulfate (Morphine Sulfate) 6 mg Q3H PRN IVP Severe Pain (Pain Scale 7-10) 01/14/20 21:30 01/21/20 21:29 01/15/20 13:17 Ondansetron HCl (Zofran) 4 mg Q6H PRN IVP Nausea & Vomiting 01/14/20 21:30 02/13/20 21:29 01/15/20 03:21 Pantoprazole (Protonix) 40 mg DAILY IV 01/15/20 09:00 02/14/20 08:59 01/15/20 08:46 Piperacillin Sod/ Tazobactam Sod 3.375 gm/Sodium Chloride 110 ml @ 27.5 mls/hr Q8H IVPB 01/14/20 23:00 01/21/20 22:59 01/15/20 06:00 Assessment/Plan Problem List: (1) Impacted gallstone of gallbladder Assessment & Plan: 34-year-old female with biliary colic. Afebrile, hemodynamic stable, labs okay. LFTs okay no leukocytosis Complaining of nominal discomfort but on examination no significant tenderness can be identified by myself. No Etienne sign. Trial oral diet Discharge planning Outpatient follow-up Thank you for let me participate patient's care INDINGS: Liver: No significant abnormality. No mass. No intrahepatic bile duct dilation. Gallbladder: A 1.2 cm gallstone is present in the gallbladder. No gallbladder wall thickening or pericholecystic fluid. Common bile duct: Unremarkable as visualized. No stones. No dilation. Pancreas: Unremarkable as visualized. Kidneys: No significant abnormality. No stones. No solid mass. No hydronephrosis. Spleen: No significant abnormality. No splenomegaly. Aorta: No significant abnormality. No aneurysm. Inferior vena cava: No significant abnormality. IMPRESSION: Cholelithiasis without sonographic evidence of acute cholecystitis. ICD Codes: K80.20 - Calculus of gallbladder without cholecystitis without obstruction SNOMED: 53095909 Domingo Peter Jan 15, 2020 14:06
[2020-01-15 16:00] VITALS: BP 113/67
--- NOTE | 2020-01-15 19:22 | NUR ---
HAND-OFF: Report given to Scottie WOODS.
--- NOTE | 2020-01-15 19:29 | History and Physical Report ---
DATE OF ADMISSION: 01/14/2020 CHIEF COMPLAINT: Abdominal pain, nausea, vomiting. HISTORY OF PRESENT ILLNESS: This is a 34-year-old female who has nausea and vomiting after she eats for the past 2 weeks. Yesterday, she got much worse. She could not even drink water and she came to the emergency room. Workup showed that the patient has impacted gallstone at the neck of the gallbladder. PAST MEDICAL HISTORY: Unremarkable. She denies previous history of gallstones. She has history of tubal ligation and three C-sections. ALLERGIES: Reported to iodine and shrimp. MEDICATIONS: She was taking ibuprofen and Tylenol p.r.n. SOCIAL HISTORY: No history of smoking or alcohol abuse. 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 REVIEW OF SYSTEMS: As above. PHYSICAL EXAMINATION: GENERAL: The patient is a moderately obese female in no acute distress. VITAL SIGNS: Blood pressure is 101/55, pulse 65, respiratory rate 20, and temperature 98.2. HEENT: [place] conjunctivae. Anicteric sclerae. NECK: Supple. LUNGS: Clear to auscultation. HEART: S1, S2 without murmurs or rubs. ABDOMEN: Tender in the right upper quadrant and also epigastric area. EXTREMITIES: No cyanosis or edema. LABORATORY FINDINGS: The CBC shows WBC of 7800, hematocrit is 38.6, hemoglobin is 13.4, and platelet is 313,000. Chemistry panel shows sodium 138, potassium 4.4, chloride 105, BUN is 21, creatinine 0.9. The UA was negative. ASSESSMENT: This is a 34-year-old female who was admitted with impacted gallstone as described. PLAN: The patient will be on IV fluid. Pain medication will be given as needed. The patient will be seen by Surgical consultation as well as GI. She was started empirically on antibiotics. Tevin Rocha M.D. DR: Nahomi JOB#: [id number] CC:
--- NOTE | 2020-01-15 19:30 | NUR ---
NURSE NOTES: Received report & pt from Skye/Holly WOODS. Pt in bed, a&ox4, in room air. No s/s of acute distress & c/o 07/29 pain. Will give PRN med & pt also requesting for Zofran. Plan of care discussed.
[2020-01-15 20:00] VITALS: BP 139/74
[2020-01-16] VITALS: BP 102/52
[2020-01-16] MEDS: Morphine Sulfate 4mg/ml Inj (IV USE ONLY) IVP PRN ×4 (00:15→20:33)
--- NOTE | 2020-01-16 00:30 | Consultation ---
DATE OF CONSULTATION: 01/15/2020 GASTROENTEROLOGY CONSULTATION CONSULTING PHYSICIAN: Dennise Cárdenas M.D. CHIEF COMPLAINT: I was asked to see this patient by Dr. Tevin Rocha for evaluation of abdominal pain. HISTORY OF PRESENT ILLNESS: The patient is a 34-year-old woman who has admitted to the hospital due to abdominal pain. The patient states that the patient has had two weeks of abdominal pain there, which is worse in the epigastric area and worse with eating. She has some nausea and vomiting. She came to the emergency room where she had an ultrasound showing gallstones; and therefore, this admission is being arranged. The patient has not had any previous history of gallstone disease. PAST MEDICAL HISTORY: Otherwise negative. MEDICATIONS: Tylenol. FAMILY HISTORY: Noncontributory. SOCIAL HISTORY: The patient does not smoke or drink. She has three children. REVIEW OF SYSTEMS: Otherwise negative. PHYSICAL EXAMINATION: GENERAL: Obese woman, seen in her room. HEENT: Normocephalic and atraumatic. Sclerae anicteric. Oropharynx is clear. NECK: Supple. CHEST: Clear to auscultation. CARDIOVASCULAR: Regular rate. ABDOMEN: Soft with right upper quadrant tenderness. EXTREMITIES: No edema. LABORATORY DATA: Noted. ASSESSMENT: This patient presents with right upper quadrant abdominal pain, which is postprandial with vomiting. The ultrasound shows cholelithiasis without obvious cholecystitis. Her symptoms could possibly represent biliary colic that she has already been seen by a surgical staff. I will defer management to the surgical team seeing this patient. RECOMMENDATIONS: Diet per surgical team and continue to follow laboratory parameters with them. Thank you for asking me to participate in the care of this patient. Dennise Cárdenas M.D. DR: JOANNA JOB#: [id number] CC: YVAN
[2020-01-16] MEDS: D5 1/2NS 1,000 ML IV SCH ×2 (03:01→10:30)
[2020-01-16 04:00] VITALS: BP 110/66
[2020-01-16] MEDS: Piperacillin/Tazobactam 3.375 GM in NS 110 ML IVPB SCH ×3 (06:11→23:49)
[2020-01-16 07:14] LABS: ALANINE AMINOTRANSFERASE 49 U/L (12-78); ALBUMIN/GLOBULIN RATIO 0.8 (1.0-2.7); ALKALINE PHOSPHATASE 91 U/L (46-116); AMYLASE 51 U/L (25-115); ANION GAP 11 mmol/L (5-15); ASPARTATE AMINO TRANSFERASE 50 U/L (15-37); BILIRUBIN,TOTAL 0.6 MG/DL (0.2-1.0); BLOOD UREA NITROGEN 11 mg/dL (7-18); CALCIUM 8.4 MG/DL (8.5-10.1); CARBON DIOXIDE 22 MMOL/L (21-32); CHLORIDE 107 MMOL/L (98-107); CREATININE 0.9 MG/DL (0.55-1.30); POTASSIUM 4.3 MMOL/L (3.5-5.1); SODIUM 140 MMOL/L (136-145)
--- NOTE | 2020-01-16 07:19 | NUR ---
HAND-OFF: Report given to PEGGY Cheung. Rounds done.
[2020-01-16 07:25] LABS: BASOPHILS % (AUTO) 0.7 % (0.0-2.0); EOSINOPHILS % (AUTO) 2.7 % (0.0-3.0); HEMATOCRIT 36.9 % (37.0-47.0); HEMOGLOBIN 12.7 G/DL (12.0-16.0); LYMPHOCYTES % (AUTO) 34.4 % (20.0-45.0); MEAN CORPUSCULAR VOLUME 89 FL (80-99); MONOCYTES % (AUTO) 5.1 % (1.0-10.0); PLATELET COUNT 289 K/UL (150-450); RED BLOOD COUNT 4.17 M/UL (4.20-5.40); RED CELL DISTRIBUTION WIDTH 11.1 % (11.6-14.8); WHITE BLOOD COUNT 7.1 K/UL (4.8-10.8)
--- NOTE | 2020-01-16 07:45 | NUR ---
NURSE NOTES: Received report from Gloria WOODS. Pt sitting on the edge of the bed c/o n/v. Will administer PRN med as ordered. pt A&Ox4, able to make needs known. denies pain at this time. No respiratory distress noted. Pt states that she could not eat breakfast due to stomach discomfort. Will monitor for PO intake. IV site intact with IVF running. Call light within reach.
[2020-01-16 08:00] VITALS: BP 103/70
[2020-01-16] MEDS: Pantoprazole Inj IV SCH ×2 (09:01→20:33)
--- NOTE | 2020-01-16 10:17 | General Progress Note ---
Assessment/Plan Problem List: (1) Impacted gallstone of gallbladder ICD Codes: K80.20 - Calculus of gallbladder without cholecystitis without obstruction SNOMED: 08096581 (2) Gastritis ICD Codes: K29.70 - Gastritis, unspecified, without bleeding SNOMED: 3761849 (3) Morbid obesity with BMI of 40.0-44.9, adult ICD Codes: E66.01 - Morbid (severe) obesity due to excess calories; Z68.41 - Body mass index (BMI) 40.0-44.9, adult SNOMED: 019745693, 597895822, [id number] Assessment/Plan: Coverage for Dr. Tevin Lee Change to clear liquids from regular diet Continue per GI and surgery Discussed with RN Subjective Date patient seen: Jan 16, 2020 ROS Limited/Unobtainable: No Constitutional: Reports: malaise, weakness Gastrointestinal/Abdominal: Reports: nausea Allergies: Coded Allergies: IODINE (Verified Allergy, Unknown, 01/14/20) Shrimp (Verified Allergy, Unknown, 12/20/16) Objective Last 24 Hour Vital Signs Date Time Temp Pulse Resp B/P (MAP) Pulse Ox O2 Delivery O2 Flow Rate FiO2 01/16/20 08:00 97.9 77 18 103/70 (81) 96 01/16/20 04:00 98.6 67 18 110/66 (81) 99 01/16/20 00:00 98.2 75 18 102/52 (69) 98 01/15/20 21:00 Room Air 01/15/20 20:00 98.4 78 18 139/74 (95) 98 01/15/20 16:00 97.1 66 20 113/67 (82) 97 01/15/20 13:47 98.2 01/15/20 12:00 98.2 65 20 101/55 (70) 97 Intake and Output 01/15/20 01/16/20 19:00 07:00 Intake Total 1080 ml Balance 1080 ml Intake Oral 480 ml IV Total 600 ml # Voids 2 Laboratory Tests 01/16/20 05:35: White Blood Count 7.1, Red Blood Count 4.17L, Hemoglobin 12.7, Hematocrit 36.9L , Mean Corpuscular Volume 89, Mean Corpuscular Hemoglobin 30.6, Mean Corpuscular Hemoglobin Concent 34.5, Red Cell Distribution Width 11.1L, Platelet Count 289, Mean Platelet Volume 6.0L, Neutrophils (%) (Auto) 57.0, Lymphocytes (%) (Auto) 34.4, Monocytes (%) (Auto) 5.1, Eosinophils (%) (Auto) 2.7, Basophils (%) (Auto) 0.7, Erythrocyte Sedimentation Rate 42H, Sodium Level 140, Potassium Level 4.3, Chloride Level 107, Carbon Dioxide Level 22, Anion Gap 11, Blood Urea Nitrogen 11, Creatinine 0.9, Estimat Glomerular Filtration Rate > 60, Glucose Level 88, Calcium Level 8.4L, Total Bilirubin 0.6, Aspartate Amino Transf (AST/SGOT) 50H, Alanine Aminotransferase (ALT/SGPT) 49, Alkaline Phosphatase 91, C-Reactive Protein, Quantitative 0.9, Total Protein 6.8, Albumin 3.0L, Globulin 3.8, Albumin/Globulin Ratio 0.8L, Amylase Level 51, Lipase 178 Height (Feet): 5 Height (Inches): 1.00 Weight (Pounds): 225 General Appearance: mild distress Cardiovascular: normal rate Respiratory/Chest: lungs clear Johann Villalobos MD Jan 16, 2020 10:17
[2020-01-16 10:46] LABS: PHOSPHORUS 4.2 MG/DL (2.5-4.9)
[2020-01-16 12:00] VITALS: BP 128/82
[2020-01-16] MEDS: Docusate 100mg cap ORAL SCH ×2 (12:46→17:58)
--- NOTE | 2020-01-16 15:08 | General Progress Note ---
Assessment/Plan Assessment/Plan: Assessment - abd pain - cholelithiasis - obesity Recommendations - clears - follow symptoms and exam - surgical f/u Subjective Allergies: Coded Allergies: IODINE (Verified Allergy, Unknown, 01/14/20) Shrimp (Verified Allergy, Unknown, 12/20/16) Subjective above noted on clears c/o epigastric pain Objective Last 24 Hour Vital Signs Date Time Temp Pulse Resp B/P (MAP) Pulse Ox O2 Delivery O2 Flow Rate FiO2 01/16/20 12:00 98.3 84 18 128/82 (97) 98 01/16/20 09:00 Room Air 01/16/20 08:00 97.9 77 18 103/70 (81) 96 01/16/20 04:00 98.6 67 18 110/66 (81) 99 01/16/20 00:00 98.2 75 18 102/52 (69) 98 01/15/20 21:00 Room Air 01/15/20 20:00 98.4 78 18 139/74 (95) 98 01/15/20 16:00 97.1 66 20 113/67 (82) 97 Intake and Output 01/15/20 01/16/20 19:00 07:00 Intake Total 1080 ml Balance 1080 ml Intake Oral 480 ml IV Total 600 ml # Voids 2 Laboratory Tests 01/16/20 05:35: White Blood Count 7.1, Red Blood Count 4.17L, Hemoglobin 12.7, Hematocrit 36.9L , Mean Corpuscular Volume 89, Mean Corpuscular Hemoglobin 30.6, Mean Corpuscular Hemoglobin Concent 34.5, Red Cell Distribution Width 11.1L, Platelet Count 289, Mean Platelet Volume 6.0L, Neutrophils (%) (Auto) 57.0, Lymphocytes (%) (Auto) 34.4, Monocytes (%) (Auto) 5.1, Eosinophils (%) (Auto) 2.7, Basophils (%) (Auto) 0.7, Erythrocyte Sedimentation Rate 42H, Sodium Level 140, Potassium Level 4.3, Chloride Level 107, Carbon Dioxide Level 22, Anion Gap 11, Blood Urea Nitrogen 11, Creatinine 0.9, Estimat Glomerular Filtration Rate > 60, Glucose Level 88, Hemoglobin A1c 5.5, Uric Acid 4.0, Calcium Level 8.4L, Phosphorus Level 4.2, Magnesium Level 2.2, Total Bilirubin 0.6, Gamma Glutamyl Transpeptidase 61, Aspartate Amino Transf (AST/SGOT) 50H, Alanine Aminotransferase (ALT/SGPT) 49, Alkaline Phosphatase 91, C-Reactive Protein, Quantitative 0.9, Total Protein 6.8, Albumin 3.0L, Globulin 3.8, Albumin/ Globulin Ratio 0.8L, Amylase Level 51, Lipase 178, Thyroid Stimulating Hormone ( TSH) 1.187 Height (Feet): 5 Height (Inches): 1.00 Weight (Pounds): 225 Objective Obese NAD CTA RR abd soft , (+) RUQ TTP with inspiration no edema Dennise Cárdenas MD Jan 16, 2020 15:08
[2020-01-16 16:00] VITALS: BP 114/70
--- NOTE | 2020-01-16 17:12 | Surgery Progress Note ---
Surgery Progress Note Subjective Symptoms: improved, voiding well, passing flatus, pain decreased Objective Last 24 Hour Vital Signs Date Time Temp Pulse Resp B/P (MAP) Pulse Ox O2 Delivery O2 Flow Rate FiO2 01/16/20 16:00 98.6 75 18 114/70 (85) 97 01/16/20 14:23 98.3 01/16/20 12:00 98.3 84 18 128/82 (97) 98 01/16/20 09:00 Room Air 01/16/20 08:00 97.9 77 18 103/70 (81) 96 01/16/20 04:00 98.6 67 18 110/66 (81) 99 01/16/20 00:00 98.2 75 18 102/52 (69) 98 01/15/20 21:00 Room Air 01/15/20 20:00 98.4 78 18 139/74 (95) 98 I&O Intake and Output 01/15/20 01/16/20 19:00 07:00 Intake Total 1080 ml Balance 1080 ml Intake Oral 480 ml IV Total 600 ml # Voids 2 Cardiovascular: RSR Respiratory: clear Abdomen: soft, non-tender, present bowel sounds, non-distended Extremities: no edema, no tenderness, no cyanosis Laboratory Tests Test 01/16/20 05:35 White Blood Count 7.1 K/UL (4.8-10.8) Red Blood Count 4.17 M/UL (4.20-5.40) L Hemoglobin 12.7 G/DL (12.0-16.0) Hematocrit 36.9 % (37.0-47.0) L Mean Corpuscular Volume 89 FL (80-99) Mean Corpuscular Hemoglobin 30.6 PG (27.0-31.0) Mean Corpuscular Hemoglobin Concent 34.5 G/DL (32.0-36.0) Red Cell Distribution Width 11.1 % (11.6-14.8) L Platelet Count 289 K/UL (150-450) Mean Platelet Volume 6.0 FL (6.5-10.1) L Neutrophils (%) (Auto) 57.0 % (45.0-75.0) Lymphocytes (%) (Auto) 34.4 % (20.0-45.0) Monocytes (%) (Auto) 5.1 % (1.0-10.0) Eosinophils (%) (Auto) 2.7 % (0.0-3.0) Basophils (%) (Auto) 0.7 % (0.0-2.0) Erythrocyte Sedimentation Rate 42 MM/HR (0-20) H Sodium Level 140 MMOL/L (136-145) Potassium Level 4.3 MMOL/L (3.5-5.1) Chloride Level 107 MMOL/L (98-107) Carbon Dioxide Level 22 MMOL/L (21-32) Anion Gap 11 mmol/L (5-15) Blood Urea Nitrogen 11 mg/dL (7-18) Creatinine 0.9 MG/DL (0.55-1.30) Estimat Glomerular Filtration Rate > 60 mL/min (>60) Glucose Level 88 MG/DL (74-106) Hemoglobin A1c 5.5 % (4.3-6.0) Uric Acid 4.0 MG/DL (2.6-7.2) Calcium Level 8.4 MG/DL (8.5-10.1) L Phosphorus Level 4.2 MG/DL (2.5-4.9) Magnesium Level 2.2 MG/DL (1.8-2.4) Total Bilirubin 0.6 MG/DL (0.2-1.0) Gamma Glutamyl Transpeptidase 61 U/L (5-85) Aspartate Amino Transf (AST/SGOT) 50 U/L (15-37) H Alanine Aminotransferase (ALT/SGPT) 49 U/L (12-78) Alkaline Phosphatase 91 U/L (46-116) C-Reactive Protein, Quantitative 0.9 mg/dL (0.00-0.90) Total Protein 6.8 G/DL (6.4-8.2) Albumin 3.0 G/DL (3.4-5.0) L Globulin 3.8 g/dL Albumin/Globulin Ratio 0.8 (1.0-2.7) L Amylase Level 51 U/L (25-115) Lipase 178 U/L (73-393) Thyroid Stimulating Hormone (TSH) 1.187 uiU/mL (0.358-3.740) Plan Problems: (1) Impacted gallstone of gallbladder Assessment & Plan: 34-year-old female with biliary colic. Afebrile, hemodynamic stable, labs okay. LFTs okay no leukocytosis Complaining of nominal discomfort but on examination no significant tenderness can be identified by myself. No Etienne sign. Trial oral diet Discharge planning Outpatient follow-up Thank you for let me participate patient's care d/c planning diet as tolerated INDINGS: Liver: No significant abnormality. No mass. No intrahepatic bile duct dilation. Gallbladder: A 1.2 cm gallstone is present in the gallbladder. No gallbladder wall thickening or pericholecystic fluid. Common bile duct: Unremarkable as visualized. No stones. No dilation. Pancreas: Unremarkable as visualized. Kidneys: No significant abnormality. No stones. No solid mass. No hydronephrosis. Spleen: No significant abnormality. No splenomegaly. Aorta: No significant abnormality. No aneurysm. Inferior vena cava: No significant abnormality. IMPRESSION: Cholelithiasis without sonographic evidence of acute cholecystitis. Domingo Peter Jan 16, 2020 17:12
--- NOTE | 2020-01-16 19:28 | NUR ---
HAND-OFF: Report given to Itzel WOODS.
[2020-01-16 21:00] VITALS: BP 110/71
[2020-01-17] VITALS: BP 113/63
--- NOTE | 2020-01-17 01:14 | NUR ---
NURSES NOTE: Pt in bed, A/OX4, states pain 8/10 in abdomen. PRN pain meds will be given. No outward s/s of distress noted. Breathing is even and unlabored on RA. VS WNL. R hand 22 gauge IV, intact, patent, infusing IVF without incident. Bed at lowest level. Call light within reach. Pt will continue to be monitored.
[2020-01-17 04:00] VITALS: BP 119/56
[2020-01-17 05:56] LABS: BASOPHILS % (AUTO) 0.9 % (0.0-2.0); EOSINOPHILS % (AUTO) 2.4 % (0.0-3.0); HEMATOCRIT 36.2 % (37.0-47.0); HEMOGLOBIN 12.6 G/DL (12.0-16.0); LYMPHOCYTES % (AUTO) 40.9 % (20.0-45.0); MEAN CORPUSCULAR VOLUME 88 FL (80-99); MONOCYTES % (AUTO) 5.5 % (1.0-10.0); NEUTROPHILS % (AUTO) 50.2 % (45.0-75.0); PLATELET COUNT 304 K/UL (150-450); RED BLOOD COUNT 4.11 M/UL (4.20-5.40); RED CELL DISTRIBUTION WIDTH 10.9 % (11.6-14.8); WHITE BLOOD COUNT 7.2 K/UL (4.8-10.8)
[2020-01-17] MEDS: Piperacillin/Tazobactam 3.375 GM in NS 110 ML IVPB SCH ×2 (06:08→15:23)
[2020-01-17] MEDS: D5 1/2NS 1,000 ML IV SCH (06:08)
[2020-01-17 06:58] LABS: ALANINE AMINOTRANSFERASE 55 U/L (12-78); ALBUMIN/GLOBULIN RATIO 0.8 (1.0-2.7); ALKALINE PHOSPHATASE 94 U/L (46-116); ANION GAP 9 mmol/L (5-15); ASPARTATE AMINO TRANSFERASE 39 U/L (15-37); BILIRUBIN,TOTAL 0.6 MG/DL (0.2-1.0); BLOOD UREA NITROGEN 8 mg/dL (7-18); CALCIUM 8.5 MG/DL (8.5-10.1); CARBON DIOXIDE 25 MMOL/L (21-32); CHLORIDE 104 MMOL/L (98-107); CREATININE 0.9 MG/DL (0.55-1.30); POTASSIUM 3.9 MMOL/L (3.5-5.1); SODIUM 138 MMOL/L (136-145)
[2020-01-17 08:00] VITALS: BP 94/59
--- NOTE | 2020-01-17 08:00 | NUR ---
HAND OFF: Report given to PEGGY Partida.
--- NOTE | 2020-01-17 08:00 | NUR ---
NURSE NOTES: Received report from Dangelo WODOS, pt a/a/o x4 laying in bed c/o of abd pain. on assessment pt has abd distention, no BM since admission 01/13. IV on the right Hand gauge#22 running D5 1/2NS @50ml.hr call light within reach, bed in lowest position. side rales up x2. per MD notes plan possible d/c today.
[2020-01-17] MEDS: Docusate 100mg cap ORAL SCH ×3 (08:39→17:01)
[2020-01-17] MEDS: Pantoprazole Inj IV SCH (08:39)
[2020-01-17 12:00] VITALS: BP 101/65
--- NOTE | 2020-01-17 12:08 | General Progress Note ---
Assessment/Plan Problem List: (1) Cholelithiasis ICD Codes: K80.20 - Calculus of gallbladder without cholecystitis without obstruction SNOMED: 821632969 (2) Biliary colic ICD Codes: K80.50 - Calculus of bile duct without cholangitis or cholecystitis without obstruction SNOMED: 51371572 Assessment/Plan: clear liquids IVF antiemetics pain meds Subjective Allergies: Coded Allergies: IODINE (Verified Allergy, Unknown, 01/14/20) Shrimp (Verified Allergy, Unknown, 12/20/16) Subjective still nauseated Objective Last 24 Hour Vital Signs Date Time Temp Pulse Resp B/P (MAP) Pulse Ox O2 Delivery O2 Flow Rate FiO2 01/17/20 08:00 98.9 77 18 94/59 (71) 98 01/17/20 04:00 98.6 70 21 119/56 (77) 98 01/17/20 00:00 98.8 72 21 113/63 (80) 99 01/16/20 21:00 99.1 65 18 110/71 (84) 98 01/16/20 21:00 Room Air 01/16/20 16:00 98.6 75 18 114/70 (85) 97 01/16/20 14:23 98.3 Intake and Output 01/16/20 01/17/20 19:00 07:00 Intake Total 2150.0 ml 110.0 ml Balance 2150.0 ml 110.0 ml Intake Oral 1440 ml IV Total 710.0 ml 110.0 ml # Voids 1 Laboratory Tests 01/17/20 05:40: White Blood Count 7.2, Red Blood Count 4.11L, Hemoglobin 12.6, Hematocrit 36.2L , Mean Corpuscular Volume 88, Mean Corpuscular Hemoglobin 30.6, Mean Corpuscular Hemoglobin Concent 34.7, Red Cell Distribution Width 10.9L, Platelet Count 304, Mean Platelet Volume 6.1L, Neutrophils (%) (Auto) 50.2, Lymphocytes (%) (Auto) 40.9, Monocytes (%) (Auto) 5.5, Eosinophils (%) (Auto) 2.4, Basophils (%) (Auto) 0.9, Sodium Level 138, Potassium Level 3.9, Chloride Level 104, Carbon Dioxide Level 25, Anion Gap 9, Blood Urea Nitrogen 8, Creatinine 0.9, Estimat Glomerular Filtration Rate > 60, Glucose Level 88, Calcium Level 8.5, Total Bilirubin 0.6, Aspartate Amino Transf (AST/SGOT) 39H, Alanine Aminotransferase (ALT/SGPT) 55, Alkaline Phosphatase 94, Total Protein 6.9, Albumin 3.0L, Globulin 3.9, Albumin/Globulin Ratio 0.8L Height (Feet): 5 Height (Inches): 1.00 Weight (Pounds): 225 Cardiovascular: normal rate Respiratory/Chest: lungs clear Abdomen: soft, tender - R upper quadrant and epigastric Edema: no edema noted Generalized Tevin Rocha MD Jan 17, 2020 12:08
--- NOTE | 2020-01-17 14:25 | Surgery Progress Note ---
Surgery Progress Note Subjective Symptoms: improved, tolerating diet, voiding well, passing flatus, BM, pain decreased Objective Last 24 Hour Vital Signs Date Time Temp Pulse Resp B/P (MAP) Pulse Ox O2 Delivery O2 Flow Rate FiO2 01/17/20 08:00 98.9 77 18 94/59 (71) 98 01/17/20 04:00 98.6 70 21 119/56 (77) 98 01/17/20 00:00 98.8 72 21 113/63 (80) 99 01/16/20 21:00 99.1 65 18 110/71 (84) 98 01/16/20 21:00 Room Air 01/16/20 16:00 98.6 75 18 114/70 (85) 97 I&O Intake and Output 01/16/20 01/17/20 19:00 07:00 Intake Total 2150.0 ml 110.0 ml Balance 2150.0 ml 110.0 ml Intake Oral 1440 ml IV Total 710.0 ml 110.0 ml # Voids 1 Cardiovascular: RSR Respiratory: clear Abdomen: soft, non-tender, present bowel sounds Extremities: no edema, no tenderness, no cyanosis Laboratory Tests Test 01/17/20 05:40 White Blood Count 7.2 K/UL (4.8-10.8) Red Blood Count 4.11 M/UL (4.20-5.40) L Hemoglobin 12.6 G/DL (12.0-16.0) Hematocrit 36.2 % (37.0-47.0) L Mean Corpuscular Volume 88 FL (80-99) Mean Corpuscular Hemoglobin 30.6 PG (27.0-31.0) Mean Corpuscular Hemoglobin Concent 34.7 G/DL (32.0-36.0) Red Cell Distribution Width 10.9 % (11.6-14.8) L Platelet Count 304 K/UL (150-450) Mean Platelet Volume 6.1 FL (6.5-10.1) L Neutrophils (%) (Auto) 50.2 % (45.0-75.0) Lymphocytes (%) (Auto) 40.9 % (20.0-45.0) Monocytes (%) (Auto) 5.5 % (1.0-10.0) Eosinophils (%) (Auto) 2.4 % (0.0-3.0) Basophils (%) (Auto) 0.9 % (0.0-2.0) Sodium Level 138 MMOL/L (136-145) Potassium Level 3.9 MMOL/L (3.5-5.1) Chloride Level 104 MMOL/L (98-107) Carbon Dioxide Level 25 MMOL/L (21-32) Anion Gap 9 mmol/L (5-15) Blood Urea Nitrogen 8 mg/dL (7-18) Creatinine 0.9 MG/DL (0.55-1.30) Estimat Glomerular Filtration Rate > 60 mL/min (>60) Glucose Level 88 MG/DL (74-106) Calcium Level 8.5 MG/DL (8.5-10.1) Total Bilirubin 0.6 MG/DL (0.2-1.0) Aspartate Amino Transf (AST/SGOT) 39 U/L (15-37) H Alanine Aminotransferase (ALT/SGPT) 55 U/L (12-78) Alkaline Phosphatase 94 U/L (46-116) Total Protein 6.9 G/DL (6.4-8.2) Albumin 3.0 G/DL (3.4-5.0) L Globulin 3.9 g/dL Albumin/Globulin Ratio 0.8 (1.0-2.7) L Plan Problems: (1) Impacted gallstone of gallbladder Assessment & Plan: 34-year-old female with biliary colic. Afebrile, hemodynamic stable, labs okay. LFTs okay no leukocytosis Complaining of nominal discomfort but on examination no significant tenderness can be identified by myself. No Etienne sign. Trial oral diet Discharge planning Outpatient follow-up Thank you for let me participate patient's care d/c planning diet as tolerated INDINGS: Liver: No significant abnormality. No mass. No intrahepatic bile duct dilation. Gallbladder: A 1.2 cm gallstone is present in the gallbladder. No gallbladder wall thickening or pericholecystic fluid. Common bile duct: Unremarkable as visualized. No stones. No dilation. Pancreas: Unremarkable as visualized. Kidneys: No significant abnormality. No stones. No solid mass. No hydronephrosis. Spleen: No significant abnormality. No splenomegaly. Aorta: No significant abnormality. No aneurysm. Inferior vena cava: No significant abnormality. IMPRESSION: Cholelithiasis without sonographic evidence of acute cholecystitis. Domingo Peter Jan 17, 2020 14:25
[2020-01-17 16:00] VITALS: BP 108/63
--- NOTE | 2020-01-17 18:45 | NUR ---
NURSE NOTES: Received d/c order. discharge instructions and belonging list given to patient. patient is also aware that she needs to call Dr. Rocha tomorrow morning if prescription is needed for n/v or pain. pt verbalized understanding and given number to call the office. pt's will provide transportation. I will f/u as needed.
--- NOTE | 2020-01-17 22:27 | General Progress Note ---
Assessment/Plan Assessment/Plan: Assessment - abd pain - improving with abx - cholelithiasis - obesity Recommendations - diet per surgery - follow symptoms and exam - surgical f/u Subjective Allergies: Coded Allergies: IODINE (Verified Allergy, Unknown, 01/14/20) Shrimp (Verified Allergy, Unknown, 12/20/16) Subjective above noted on clears feels better Objective Last 24 Hour Vital Signs Date Time Temp Pulse Resp B/P (MAP) Pulse Ox O2 Delivery O2 Flow Rate FiO2 01/17/20 16:00 98.6 67 18 108/63 (78) 98 01/17/20 12:00 97.9 60 20 101/65 (77) 97 01/17/20 09:00 Room Air 01/17/20 08:00 98.9 77 18 94/59 (71) 98 01/17/20 04:00 98.6 70 21 119/56 (77) 98 01/17/20 00:00 98.8 72 21 113/63 (80) 99 Intake and Output 01/16/20 01/17/20 19:00 07:00 Intake Total 2150.0 ml 110.0 ml Balance 2150.0 ml 110.0 ml Intake Oral 1440 ml IV Total 710.0 ml 110.0 ml # Voids 1 Laboratory Tests 01/17/20 05:40: White Blood Count 7.2, Red Blood Count 4.11L, Hemoglobin 12.6, Hematocrit 36.2L , Mean Corpuscular Volume 88, Mean Corpuscular Hemoglobin 30.6, Mean Corpuscular Hemoglobin Concent 34.7, Red Cell Distribution Width 10.9L, Platelet Count 304, Mean Platelet Volume 6.1L, Neutrophils (%) (Auto) 50.2, Lymphocytes (%) (Auto) 40.9, Monocytes (%) (Auto) 5.5, Eosinophils (%) (Auto) 2.4, Basophils (%) (Auto) 0.9, Sodium Level 138, Potassium Level 3.9, Chloride Level 104, Carbon Dioxide Level 25, Anion Gap 9, Blood Urea Nitrogen 8, Creatinine 0.9, Estimat Glomerular Filtration Rate > 60, Glucose Level 88, Calcium Level 8.5, Total Bilirubin 0.6, Aspartate Amino Transf (AST/SGOT) 39H, Alanine Aminotransferase (ALT/SGPT) 55, Alkaline Phosphatase 94, Total Protein 6.9, Albumin 3.0L, Globulin 3.9, Albumin/Globulin Ratio 0.8L Height (Feet): 5 Height (Inches): 1.00 Weight (Pounds): 225 Objective Obese NAD CTA RR abd soft ,mild TTP no edema Dennise Cárdenas MD Jan 17, 2020 22:27
--- NOTE | 2020-01-18 10:17 | Discharge Summary ---
Discharge Summary Discharge Summary _ Summary DATE OF ADMISSION: 01/14/2020 DATE OF DISCHARGE: 01/17/2020 DISCHARGED BY: REASON FOR ADMISSION: 34 years old morbidly obese female with unremarkable past medical history, presented with postprandial nausea and vomiting for the last 2 weeks. Symptoms got worse to the point that patient could not even drink water. Patient subsequently came to emergency room for further evaluation. Abdominal ultrasound revealed cholelithiasis. Abdominal ultrasound initially was read as impacted gallstone in the neck of the gallbladder. Patient denied any previous history of gallstone disease. Patient started on IV hydration . Laboratory work-up revealed no leukocytosis , stable hemoglobin , hematocrit and platelet count. Stable renal parameters and electrolytes. test negative. Lipase 135, stable LFT. Urinalysis revealed no evidence of urinary tract infection. Patient admitted for further management. CONSULTANTS: GI specialist Dr. Cárdenas surgery Dr. Peter [facility] COURSE: Patient admitted to medical surgical floor. Patient was kept n.p.o. and started on IV hydration and empiric antibiotics. Per GI specialist ultrasound revealed cholelithiasis without obvious cholecystitis. Patient most likely had a biliary colic. Pain management was addressed as needed. Symptomatic care provided. Antiemetic were on board as needed. GI prophylaxis provided. Surgeon closely followed. Patient remained afebrile and hemodynamically stable. No leukocytosis. Abdominal exam did not reveal significant tenderness. Etienne sign. Patient slowly started on trial of liquid diet and was advanced as tolerated. Patient was able to tolerate diet. Pain resolved. Patient clinically stabilized and was ready for discharge home. FINAL DIAGNOSES: Cholelithiasis Biliary colic Impacted gallstone of gallbladder Morbid obesity with BMI 42 DISCHARGE MEDICATIONS: See Medication Reconciliation list. DISCHARGE INSTRUCTIONS: Patient was discharged home. Follow-up with a primary care provider in 1 to 2 weeks. I have been assigned to dictate discharge summary for this account. I was not involved in the patient's management. Leticia Plunkett NP Jan 18, 2020 10:17
--- NOTE | 2020-01-27 16:05 | NUR ---
CASE MANAGEMENT: INITIAL REVIEW 34YR OLD FEMALE FROM HOME CC: ABD PAIN X2 DAYS; N/V AND DARK BLOODY STOOLS SI:IMPACTED GALLSTONE 98.5 75 18 123/79 97% ON RA IS:IV ZOSYN Q8HR IV D5@100ML/HR IV PEPCID X1 IV MORPHINE SULFATE X2 IV TORADOL X1 IV ZOFRAN X1 US ABD-Cholelithiasis \: 3E MED SURG UNIT DCP: HOME WHEN STABLE PLAN: PAIN CONTROL SURGERY CONSULT
== END 2020-01-17 18:45 | disposition home or self-care (01) ==
LOC: EMR 19:05 → 3E 20:12 → EDBEDREQ 20:50
DX: K80.20 Calculus of gallbladder without cholecystitis without obstruction (principal); Z68.41 Body mass index [BMI] 40.0-44.9, adult; E66.01 Morbid (severe) obesity due to excess calories; K80.50 Calculus of bile duct without cholangitis or cholecystitis without obstruction
CPT/HCPCS: 36415; 76700; 80053; 80061; 81003; 81025; 82150; 82977; 83036; 83690; 83735; 84100; 84443; 84550; 84702; 85025; 85610; 85651; 85730; 86140; 96374; 96375; 96376; 99285; J2405

== ENCOUNTER 2020-05-17 16:02 | Emergency (ER) | payer MEDICAID ==
[~2020-05-17] VITALS: Ht 154.9 cm; Wt 98.9 kg
[~2020-05-17 16:02] MED LIST changes: +IBUPROFEN200 MG ORAL; +vitamin d
--- NOTE | 2020-05-17 16:20 | NUR ---
ED Nurse Note: Patient walked in to ER due to severe upper abd pain 07/29. Stated was DC today from [facility] where she spent 3 days due to pancreatitis. Patient presented anxious, AAO x4, VSS at this time, skin is warm to touch.
[2020-05-17 16:29] VITALS: BP 111/69
[2020-05-17] MEDS ORDERED: Lidocaine 2% Visc 15ml soln ORAL ONE (16:30)
--- NOTE | 2020-05-17 16:34 | NUR ---
ED Nurse Note: IV line was established on left AC 20ga, blood and urine specimen colected sent to lab.
[2020-05-17 16:37] LABS: BASOPHILS % (AUTO) 0.8 % (0.0-2.0); EOSINOPHILS % (AUTO) 2.4 % (0.0-3.0); HEMATOCRIT 44.2 % (37.0-47.0); HEMOGLOBIN 14.6 G/DL (12.0-16.0); LYMPHOCYTES % (AUTO) 31.1 % (20.0-45.0); MEAN CORPUSCULAR VOLUME 93 FL (80-99); MONOCYTES % (AUTO) 4.7 % (1.0-10.0); PLATELET COUNT 357 K/UL (150-450); RED BLOOD COUNT 4.76 M/UL (4.20-5.40); RED CELL DISTRIBUTION WIDTH 12.2 % (11.6-14.8)
[2020-05-17 16:43] LABS: APPEARANCE,URINE CLEAR; BILIRUBIN, URINE NEGATIVE (NEGATIVE); COLOR,URINE PALE YELLOW; GLUCOSE, URINE (UA) NEGATIVE (NEGATIVE); KETONES,URINE NEGATIVE (NEGATIVE); LEUKOCYTE ESTERASE ,URINE NEGATIVE (NEGATIVE); NITRITE,URINE NEGATIVE (NEGATIVE); PH,URINE 7 (4.5-8.0); PROTEIN,URINE NEGATIVE (NEGATIVE); UROBILINOGEN,URINE NORMAL MG/DL (0.0-1.0)
[2020-05-17 16:43] LABS: ANION GAP 7 mmol/L (5-15); BLOOD UREA NITROGEN 10 mg/dL (7-18); CALCIUM 9.1 MG/DL (8.5-10.1); CARBON DIOXIDE 29 MMOL/L (21-32); CHLORIDE 103 MMOL/L (98-107); CREATININE 1.2 MG/DL (0.55-1.30); POTASSIUM 4.1 MMOL/L (3.5-5.1); SODIUM 139 MMOL/L (136-145)
[2020-05-17 16:48] LABS: ALANINE AMINOTRANSFERASE 33 U/L (12-78); ALBUMIN 4.1 G/DL (3.4-5.0); ALBUMIN/GLOBULIN RATIO 0.9 (1.0-2.7); ALKALINE PHOSPHATASE 111 U/L (46-116); ASPARTATE AMINO TRANSFERASE 20 U/L (15-37); BILIRUBIN,TOTAL 0.3 MG/DL (0.2-1.0)
--- NOTE | 2020-05-17 17:06 | Emergency Room Report ---
History of Present Illness General Chief Complaint: Abdominal Pain Present Illness HPI 34-year-old female presents to the emergency department complaining of 10 out of 10 severity epigastric abdominal pain x2 hours. Patient reports she was just discharged earlier today from [facility] where she was hospitalized after having labs and imaging performed for 3 days for pancreatitis. Patient reports she began her liquid only diet at home and after drinking some liquid she immediately began having her abdominal symptoms. She denies nausea or vomiting. She denies fevers or chills. She denies constipation or diarrhea. She denies urinary frequency, urgency or hematuria or dysuria. She states she has not taken any medications for symptoms. Patient reports she did not contact the hospital for much she was discharged that because she did not like that hospital and did not want to go back there. Patient states she has not contacted her primary care provider. Patient reports that she has been having pancreatitis issues after having cholecystectomy. Patient denies significant past medical history such as Cardiac, EtOH use or diabetes. She denies blood in the stool or black tarry stools. No other aggravating or relieving factors. Allergies: Coded Allergies: IODINE (Verified Allergy, Unknown, 01/14/20) Shrimp (Verified Allergy, Unknown, 12/20/16) COVID-19 Screening Contact w/high risk pt: No Recent Travel to affected area: No Experienced COVID-19 symptoms?: No COVID-19 Testing performed PATTERN CLERK: No Patient History Past Medical History: see triage record Past Surgical History: rainer, other - Tubal ligation Pertinent Family History: none Last Menstrual Period: 04/30/2030 Now: No Reviewed Nursing Documentation: PMH: Agreed; PSxH: Agreed Nursing Documentation-PMH Hx Cardiac Problems: No Hx Cancer: No Hx Gastrointestinal Problems: No Hx Neurological Problems: No Review of Systems All Other Systems: negative except mentioned in HPI Physical Exam Vital Signs Date Time Temp Pulse Resp B/P (MAP) Pulse Ox O2 Delivery O2 Flow Rate FiO2 05/17/20 16:08 98.1 88 20 111/69 (83) 99 Room Air Sp02 EP Interpretation: reviewed, normal General Appearance: no apparent distress, alert, GCS 15, non-toxic Head: normocephalic, atraumatic Eyes: bilateral eye normal inspection, bilateral eye PERRL ENT: hearing grossly normal, normal voice Neck: full range of motion Respiratory: chest non-tender, lungs clear, normal breath sounds, speaking full sentences Cardiovascular #1: regular rate, rhythm Gastrointestinal: normal bowel sounds, non tender, soft, no peritonitis, non- distended, no guarding, no rebound Rectal: deferred Genitourinary: normal inspection, no CVA tenderness Musculoskeletal: normal range of motion, gait/station normal, non-tender Neurologic: alert, motor strength/tone normal, oriented x3, sensory intact, responsive, speech normal Psychiatric: judgement/insight normal Skin: no rash, normal color Medical Decision Making PA Attestation Dr. Ahn Is my supervising Physician whom patient management has been discussed with. Diagnostic Impression: Primary Impression: Abdominal pain Qualified Codes: R10.13 - Epigastric pain ER Course 34-year-old female presents to the emergency department complaining of 10 out of 10 severity epigastric abdominal pain x2 hours. Patient reports she was just discharged earlier today from [facility] where she was hospitalized after having labs and imaging performed for 3 days for pancreatitis. Patient reports she began her liquid only diet at home and after drinking some liquid she immediately began having her abdominal symptoms. She denies nausea or vomiting. She denies fevers or chills. She denies constipation or diarrhea. She denies urinary frequency, urgency or hematuria or dysuria. She states she has not taken any medications for symptoms. Patient reports she did not contact the hospital for much she was discharged that because she did not like that hospital and did not want to go back there. Patient states she has not contacted her primary care provider. Patient reports that she has been having pancreatitis issues after having cholecystectomy. Patient denies significant past medical history such as Cardiac, EtOH use or diabetes. She denies blood in the stool or black tarry stools. No other aggravating or relieving factors. Ddx considered but are not limited to Diverticulitis, acute appy, diarrhea,UC, PUD, GE, pancreatitis, gallstone, ovarian torsion, ectopic , PID tubo-ovarian abscess. Vital signs: are WNL, pt. is afebrile H&PE are most consistent with epigastric abdominal pain in person with hx of recent pancreatitis without cardiac RF's. Abdomen is soft and non-distended. No evidence to suggest acute abdomen on physical exam. ORDERS: -CBC, CMP, LIPASE: unremarkable/ WNL---- lipase normal -UA: unremarkable -URINE HCG: Negative ED INTERVENTIONS: -PO Lidocaine - Pepcid 20mg IV upon re-eval. pt. reports her pain has improved almost completely with ED interventions. D/w pt. being D/c to home with close outpatient follow up. She verbalized her understanding and agreement with this treatment plan. She verbalized not having any further questions. DISCHARGE: At this time pt. is stable for d/c to home. Will provide printed patient care instructions, and any necessary prescriptions. Care plan and follow up instructions have been discussed with the patient prior to discharge. Labs Test 05/17/20 16:17 05/17/20 16:20 Urine Color Pale yellow Urine Appearance Clear Urine pH 7 (4.5-8.0) Urine Specific [place] 1.005 (1.005-1.035) Urine Protein Negative (NEGATIVE) Urine Glucose (UA) Negative (NEGATIVE) Urine Ketones Negative (NEGATIVE) Urine Blood Negative (NEGATIVE) Urine Nitrite Negative (NEGATIVE) Urine Bilirubin Negative (NEGATIVE) Urine Urobilinogen Normal MG/DL (0.0-1.0) Urine Leukocyte Esterase Negative (NEGATIVE) Urine HCG, Qualitative Negative (NEGATIVE) White Blood Count 7.0 K/UL (4.8-10.8) Red Blood Count 4.76 M/UL (4.20-5.40) Hemoglobin 14.6 G/DL (12.0-16.0) Hematocrit 44.2 % (37.0-47.0) Mean Corpuscular Volume 93 FL (80-99) Mean Corpuscular Hemoglobin 30.6 PG (27.0-31.0) Mean Corpuscular Hemoglobin Concent 33.0 G/DL (32.0-36.0) Red Cell Distribution Width 12.2 % (11.6-14.8) Platelet Count 357 K/UL (150-450) Mean Platelet Volume 6.7 FL (6.5-10.1) Neutrophils (%) (Auto) 61.0 % (45.0-75.0) Lymphocytes (%) (Auto) 31.1 % (20.0-45.0) Monocytes (%) (Auto) 4.7 % (1.0-10.0) Eosinophils (%) (Auto) 2.4 % (0.0-3.0) Basophils (%) (Auto) 0.8 % (0.0-2.0) Sodium Level 139 MMOL/L (136-145) Potassium Level 4.1 MMOL/L (3.5-5.1) Chloride Level 103 MMOL/L (98-107) Carbon Dioxide Level 29 MMOL/L (21-32) Anion Gap 7 mmol/L (5-15) Blood Urea Nitrogen 10 mg/dL (7-18) Creatinine 1.2 MG/DL (0.55-1.30) Estimat Glomerular Filtration Rate 51.4 mL/min (>60) Glucose Level 94 MG/DL (74-106) Calcium Level 9.1 MG/DL (8.5-10.1) Total Bilirubin 0.3 MG/DL (0.2-1.0) Aspartate Amino Transf (AST/SGOT) 20 U/L (15-37) Alanine Aminotransferase (ALT/SGPT) 33 U/L (12-78) Alkaline Phosphatase 111 U/L (46-116) Total Protein 8.5 G/DL (6.4-8.2) Albumin 4.1 G/DL (3.4-5.0) Globulin 4.4 g/dL Albumin/Globulin Ratio 0.9 (1.0-2.7) Lipase 153 U/L (73-393) Last Vital Signs Date Time Temp Pulse Resp B/P (MAP) Pulse Ox O2 Delivery O2 Flow Rate FiO2 05/17/20 16:29 88 20 Room Air 05/17/20 16:29 98.1 111/69 99 Status: improved Disposition: HOME, SELF-CARE Condition: Stable Scripts Lidocaine HCl 2% Viscous (Lidocaine HCl 2% Viscous) 100 Ml Solution 10 ML ORAL QID, #120 ML Prov: Kaylie Senior 05/17/20 Famotidine* (Pepcid 20mg tablet*) 20 Mg Tablet 20 MG ORAL TWICE A DAY for 10 Days, #20 TAB 0 Refills Prov: Kaylie Senior 05/17/20 Referrals: NOT CHOSEN [facility]/MD,REFERRING (PCP) Patient Instructions: Abdominal Pain, Adult Additional Instructions: Take medications as directed. Follow up with a Primary Care Provider in 3-5 days, even if your symptoms have resolved. Return sooner to ED if new symptoms occur, or current symptoms become worse. - Please note that this Emergency Department Report was dictated using [employer]stechtandem mill operator technology software, occasionally this can lead to erroneous entry secondary to interpretation by the dictation equipment. Kaylie Senior May 17, 2020 17:06
[2020-05-17] MEDS ORDERED: LIDOCAINE VISC100 ML ORAL (17:21)
[2020-05-17] MEDS ORDERED: FAMOTIDINE20 MG ORAL (17:21)
[2020-05-17 17:28] VITALS: BP 111/69
--- NOTE | 2020-05-17 17:29 | NUR ---
ER DISCHARGE NOTE: Patient is cleared to be discharged per ERMD, pt is aox4, on room air, with stable vital signs. pt was given dc and prescription instructions, pt was able to verbalize understanding, pt id band and iv site removed without complications. pt is able to ambulate with steady gait. pt took all belongings.
== END 2020-05-17 17:28 | disposition home or self-care (01) ==
LOC: EMR 16:15
DX: R10.13 Epigastric pain (principal); Z91.041 Radiographic dye allergy status; Z91.013 Allergy to seafood
CPT/HCPCS: 36415; 80053; 81003; 81025; 83690; 85025; 96361; 96374; J7030; S0028; Z7502; 99284

== ENCOUNTER 2020-06-06 10:35 | Inpatient (IN) | payer MEDICAID ==
[~2020-06-06] VITALS: Ht 154.9 cm; Wt 99.8 kg
[~2020-06-06 10:35] MED LIST changes: +FAMOTIDINE20 MG ORAL; +LIDOCAINE VISC100 ML ORAL
[2020-06-06 11:10] VITALS: BP 133/63
--- NOTE | 2020-06-06 11:10 | NUR ---
ED Nurse Note: Pt ambualted to ed c/o lower abdominal pain x 1 week with nausea and vomiting. pt guarding abdomen and crying reports 10/10 pain. pt able to urinate and provide urine sample
[2020-06-06] MEDS ORDERED: Morphine Sulfate 4mg/ml Inj (IV USE ONLY) IVP ONE ×2 (11:15→12:15)
--- NOTE | 2020-06-06 11:15 | Emergency Room Report ---
History of Present Illness General Chief Complaint: Abdominal Pain Source: Patient Present Illness HPI Patient is a 34-year-old female past medical history of obesity and pancreatitis a month ago who presents to the ER complaining of epigastric pain that is constantly there since her cholecystectomy in February but got worse last night. She denies any fever or chills. She denies any nausea or vomiting. She denies any dysuria or hematuria. She states that she was admitted 1 month ago for pancreatitis. She denies any chest pain or shortness of breath. Allergies: Coded Allergies: IODINE (Verified Allergy, Unknown, 01/14/20) Shrimp (Verified Allergy, Unknown, 12/20/16) COVID-19 Screening Contact w/high risk pt: No Recent Travel to affected area: No Experienced COVID-19 symptoms?: No COVID-19 Testing performed FLASH WELDING MACHINE OPERATOR: No Patient History Last Menstrual Period: on period Reviewed Nursing Documentation: PMH: Agreed; PSxH: Agreed Nursing Documentation-PMH Past Medical History: No History, Except For Hx Cardiac Problems: No Hx Cancer: No Hx Gastrointestinal Problems: Yes - Cholecystectomy, "pancreas problem" Hx Neurological Problems: No Review of Systems All Other Systems: negative except mentioned in HPI Physical Exam Vital Signs Date Time Temp Pulse Resp B/P (MAP) Pulse Ox O2 Delivery O2 Flow Rate FiO2 06/06/20 10:58 98.8 72 16 133/63 (86) 99 Room Air Sp02 EP Interpretation: reviewed, normal General Appearance: alert, GCS 15, non-toxic, moderate distress Head: normocephalic, atraumatic Eyes: bilateral eye normal inspection, bilateral eye PERRL ENT: hearing grossly normal, normal pharynx, no angioedema, normal voice Neck: full range of motion, supple/symm/no masses Respiratory: chest non-tender, lungs clear, normal breath sounds, speaking full sentences Cardiovascular #1: regular rate, rhythm, no edema Gastrointestinal: no guarding, no rebound, other - Epigastric and periumbilical pain Rectal: deferred Musculoskeletal: normal range of motion, no calf tenderness, no lower extremity edema Neurologic: telecommunications repairer III-XII nml as tested, oriented x3 Psychiatric: no suicidal/homicidal ideation Skin: no rash Lymphatic: no adenopathy Medical Decision Making Diagnostic Impression: Primary Impression: Intractable abdominal pain Additional Impression: Solitary lung nodule ER Course Patient's vital signs are stable. Her labs demonstrate no significant acute abnormalities. CT abdomen pelvis demonstrates no acute intra-abdominal pathology. Patient has intractable abdominal pain. She has been given multiple doses of IV narcotics as well as IV Protonix. Patient CT does demonstrate a solitary lung nodule. I have told her about this and advised her to have a follow-up study in 6 months. Patient will be admitted for further treatment and evaluation. Last Vital Signs Date Time Temp Pulse Resp B/P (MAP) Pulse Ox O2 Delivery O2 Flow Rate FiO2 06/06/20 10:58 98.8 72 16 133/63 (86) 99 Room Air Disposition: ADMITTED INPATIENT - Dr. Blanc Condition: Critical Physician Consult: Dr. Rodríguez Scripts Bisacodyl (DULCOLAX) 10 Mg Supp.rect 10 MG RC DAILY for 28 Days, SUPP Prov: Micah Rodríguez M.D. 06/08/20 Hydrocodone/Acetaminophen 5-325* (HYDROCODONE/ACETAMINOPHEN 5-325*) 1 Each Tablet 1 TAB ORAL Q4H PRN, #10 TAB Prov: Micah Rodríguez M.D. 06/08/20 Referrals: NOT CHOSEN JOSE MARTIN/,REFERRING (PCP) Additional Instructions: Please note that this report is being documented using [employer] technology. This can lead to erroneous entry secondary to incorrect interpretation by the dictating instrument. Belem Ahn M.D. Jun 06, 2020 11:15
[2020-06-06 11:32] LABS: BASOPHILS % (AUTO) 1.1 % (0.0-2.0); EOSINOPHILS % (AUTO) 2.8 % (0.0-3.0); HEMATOCRIT 42.9 % (37.0-47.0); HEMOGLOBIN 13.9 G/DL (12.0-16.0); LYMPHOCYTES % (AUTO) 34.1 % (20.0-45.0); MEAN CORPUSCULAR VOLUME 93 FL (80-99); MONOCYTES % (AUTO) 5.2 % (1.0-10.0); NEUTROPHILS % (AUTO) 56.8 % (45.0-75.0); PLATELET COUNT 326 K/UL (150-450); RED BLOOD COUNT 4.61 M/UL (4.20-5.40); RED CELL DISTRIBUTION WIDTH 11.6 % (11.6-14.8); WHITE BLOOD COUNT 6.9 K/UL (4.8-10.8)
[2020-06-06 11:53] LABS: ANION GAP 12 mmol/L (5-15); BLOOD UREA NITROGEN 14 mg/dL (7-18); CARBON DIOXIDE 22 MMOL/L (21-32); CHLORIDE 106 MMOL/L (98-107); COLOR,URINE RED; CREATININE 0.8 MG/DL (0.55-1.30); SODIUM 139 MMOL/L (136-145)
[2020-06-06 11:54] LABS: APPEARANCE,URINE SLIGHTLY CLOUDY; BILIRUBIN, URINE NEGATIVE (NEGATIVE); GLUCOSE, URINE (UA) NEGATIVE (NEGATIVE); KETONES,URINE NEGATIVE (NEGATIVE); NITRITE,URINE NEGATIVE (NEGATIVE); PH,URINE 5 (4.5-8.0); PROTEIN,URINE 2+ (NEGATIVE); UROBILINOGEN,URINE NORMAL MG/DL (0.0-1.0)
[2020-06-06 11:55] LABS: LEUKOCYTE ESTERASE ,URINE 2+ (NEGATIVE)
--- NOTE | 2020-06-06 11:56 | NUR ---
ED Nurse Note: pt reports increasing pain, informed ERMD
[2020-06-06 11:57] LABS: ALANINE AMINOTRANSFERASE 29 U/L (12-78); ALBUMIN 3.5 G/DL (3.4-5.0); ALBUMIN/GLOBULIN RATIO 0.8 (1.0-2.7); ALKALINE PHOSPHATASE 98 U/L (46-116); ASPARTATE AMINO TRANSFERASE 18 U/L (15-37); BILIRUBIN,TOTAL 0.4 MG/DL (0.2-1.0)
--- NOTE | 2020-06-06 12:10 | NUR ---
ED Nurse Note: Pt taken to Ct on ju
--- NOTE | 2020-06-06 12:24 | NUR ---
ED Nurse Note: Pt returned from CT on [address]
[2020-06-06] MEDS ORDERED: HYDROmorphone 1mg/ml Carpuject ONE (12:38)
[2020-06-06] MEDS ORDERED: Hydromorphone 0.5mg/0.5ml inj IVP ONE (12:45)
[2020-06-06 13:00] VITALS: BP 125/69
--- NOTE | 2020-06-06 13:49 | Diagnostic Imaging Report ---
Indication: Abdominal pain, epigastric pain Technique: Spiral acquisitions obtained through the abdomen and pelvis. No oral contrast utilized, per emergency room physician request No IV contrast utilized, per referring physician request.. Multiplanar reconstructions were generated. Total dose length product 667 mGycm. CTDIvol(s) 13 mGy. Dose reduction achieved using automated exposure control Comparison: None. Reference made to 01/14/2020 abdominal sonogram Findings: Lack of enteric contrast limits assessment of the GI tract. There are a few colonic diverticula. No evidence of diverticulitis. Normal appendix. No small bowel distention. No free or loculated intraperitoneal gas or fluid. Distal esophagus, stomach, duodenum are unremarkable. There is a small but complex umbilical hernia which contains only fat. Lack of IV contrast limits assessment of the solid organs. The gallbladder has been removed. The liver, bile ducts, pancreas, spleen, adrenals, kidneys are unremarkable. There is a small accessory splenule incidentally noted. No renal arterial calculi, hydronephrosis, or hydroureter. The uterus and ovaries are unremarkable. The bladder is somewhat distended. The included lung bases demonstrate a 2 mm nodule at the posterior right lung base, image 18 series 5. The bones are unremarkable. Impression: Limited assessment of the GI tract, due to lack of enteric contrast administration. No gross acute abnormality. 2 mm right lobe lung nodule. No further follow-up necessary if there are no significant risk factors for lung carcinoma. If there are significant risk factors, recommend 6-12 month follow-up CT scan Incidental findings as noted, including small umbilical hernia contains only fat, small accessory splenule The CT scanner at [facility] is accredited by the [employer] and the scans are performed using protocols designed to limit radiation exposure to as low as reasonably achievable to attain images of sufficient resolution adequate for diagnostic evaluation.
[2020-06-06] MEDS ORDERED: Pantoprazole Inj IVP ONE (14:00)
--- NOTE | 2020-06-06 14:20 | NUR ---
ED Nurse Note: pt in bed resting, vss.
[2020-06-06 15:01] VITALS: BP 136/72
--- NOTE | 2020-06-06 15:04 | NUR ---
ED Nurse Note: telephone report given to PEGGY godinez for continuity of care.
--- NOTE | 2020-06-06 15:11 | NUR ---
TRANSFER TO FLOOR: Patient transferred to [facility] as ordered, per ERMD. Report given to PEGGY HOLBROOK. Belongings GIVEN TO PT. Family informed of transfer.
--- NOTE | 2020-06-06 15:18 | NUR ---
NURSE NOTES: Received patient into room 420-2,patient is alert and oriented,patient having pain,will call Doctor for orders.Saline lock left arm intact..Call light within reach.
[2020-06-06 16:00] VITALS: BP 136/70
[2020-06-06] MEDS ORDERED: Gadavist 7.5mMol/7.5ml vial IV PRN (16:15)
[2020-06-06] MEDS ORDERED: HYDROmorphone 1mg/ml Carpuject IVP SCH (16:15)
[2020-06-06] MEDS ORDERED: LR 1000ml 1,000 ML IV ONE (17:00)
[2020-06-06] MEDS: Pantoprazole Inj IV SCH (17:00)
--- NOTE | 2020-06-06 17:07 | History and Physical ---
History of Present Illness General Date patient seen: Jun 06, 2020 Time patient seen: 16:55 Reason for Hospitalization: Abdominal Pain Present Illness HPI 34 year old female with a PMH of gall stone pancreatitis s/p cholecystomy at [facility] 1 month ago presents with 1 week history of epigastric pain radiating the the back. She states the pain is 10/10, sharp, not alleviated by Tylenol. She can not eat or drink anything without pain. Her last BM was this morning and was normal with no blood or black stool. she sates that she has had a pancreatic stent in the past which was recently taken out. She denies fever, chills, recent travel, chest pain, leg pain, constipation, or headache. Allergies: Coded Allergies: IODINE (Verified Allergy, Unknown, 01/14/20) Shrimp (Verified Allergy, Unknown, 12/20/16) COVID-19 Screening Contact w/high risk pt: No Recent Travel to affected area: No Experienced COVID-19 symptoms?: No Medication History No Active Prescriptions or Reported Meds Patient History History Provided By: Patient Healthcare decision maker Resuscitation status full code Advanced Directive on File Past Medical/Surgical History Past Medical/Surgical History: (1) Cholelithiasis (2) Morbid obesity with BMI of 40.0-44.9, adult Family History Family History: FH: diabetes mellitus Social History Social History: (1) Non-smoker Review of Systems Constitutional: Denies: chills, sweats, fever Eye: Denies: eye pain, blurred vision, tearing ENT: Denies: ear pain, ear discharge Respiratory: Denies: cough, orthopnea, shortness of breath, stridor, wheezing Cardiovascular: Denies: chest pain, edema, palpitations, syncope Gastrointestinal: Reports: abdominal pain; Denies: constipation, diarrhea, nausea, vomiting, melena, hematemesis Genitourinary: Denies: discharge, dysuria, frequency, hematuria Musculoskeletal: Denies: back pain, gout, joint pain, joint swelling Skin: Denies: rash, change in color, change in hair/nails Psychiatric: Denies: anxiety, depressed feelings, emotional problems, SI, HI Neurological: Denies: headache, numbness, paresthesia, seizure, tingling Endocrine: Denies: excessive sweating, flushing, intolerance to temperature Hematologic/Lymphatic: Denies: anemia Physical Exam General Appearance: alert, mild distress, obese Lines, tubes and drains: peripheral HEENT: normocephalic, atraumatic, anicteric Neck: normal alignment, supple, normal inspection Respiratory/Chest: chest wall non-tender, lungs clear, normal breath sounds, no respiratory distress Cardiovascular/Chest: normal peripheral pulses, normal rate, regular rhythm, no gallop/murmur, no JVD Abdomen: soft, no organomegaly, no mass, guarding, tender Extremities: normal range of motion, non-tender, normal inspection Skin Exam: normal pigmentation, warm/dry 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, alert, oriented x 3, responsive, normal mood/affect Last 24 Hour Vital Signs Date Time Temp Pulse Resp B/P (MAP) Pulse Ox O2 Delivery O2 Flow Rate FiO2 06/06/20 15:38 Room Air 06/06/20 15:10 98.6 92 20 135/75 100 Room Air 06/06/20 15:01 98.5 88 16 136/72 100 Room Air 06/06/20 13:10 98.8 06/06/20 13:00 98.8 79 15 125/69 99 Room Air 06/06/20 12:34 98.8 06/06/20 12:01 98.8 06/06/20 11:10 98.8 72 16 133/63 99 Room Air 06/06/20 11:10 72 16 Room Air 06/06/20 10:58 98.8 72 16 133/63 (86) 99 Room Air Laboratory Tests Test 06/06/20 11:10 White Blood Count 6.9 K/UL (4.8-10.8) Red Blood Count 4.61 M/UL (4.20-5.40) Hemoglobin 13.9 G/DL (12.0-16.0) Hematocrit 42.9 % (37.0-47.0) Mean Corpuscular Volume 93 FL (80-99) Mean Corpuscular Hemoglobin 30.1 PG (27.0-31.0) Mean Corpuscular Hemoglobin Concent 32.3 G/DL (32.0-36.0) Red Cell Distribution Width 11.6 % (11.6-14.8) Platelet Count 326 K/UL (150-450) Mean Platelet Volume 5.9 FL (6.5-10.1) L Neutrophils (%) (Auto) 56.8 % (45.0-75.0) Lymphocytes (%) (Auto) 34.1 % (20.0-45.0) Monocytes (%) (Auto) 5.2 % (1.0-10.0) Eosinophils (%) (Auto) 2.8 % (0.0-3.0) Basophils (%) (Auto) 1.1 % (0.0-2.0) Urine Color Red Urine Appearance Slightly cloudy Urine pH 5 (4.5-8.0) Urine Specific [place] 1.020 (1.005-1.035) Urine Protein 2+ (NEGATIVE) H Urine Glucose (UA) Negative (NEGATIVE) Urine Ketones Negative (NEGATIVE) Urine Blood 5+ (NEGATIVE) H Urine Nitrite Negative (NEGATIVE) Urine Bilirubin Negative (NEGATIVE) Urine Urobilinogen Normal MG/DL (0.0-1.0) Urine Leukocyte Esterase 2+ (NEGATIVE) H Urine RBC Tntc /HPF (0 - 2) H Urine WBC 2-4 /HPF (0 - 2) Urine Squamous Epithelial Cells Few /LPF (NONE/OCC) Urine Bacteria Few /HPF (NONE) Urine HCG, Qualitative Negative (NEGATIVE) Sodium Level 139 MMOL/L (136-145) Potassium Level 4.0 MMOL/L (3.5-5.1) Chloride Level 106 MMOL/L (98-107) Carbon Dioxide Level 22 MMOL/L (21-32) Anion Gap 12 mmol/L (5-15) Blood Urea Nitrogen 14 mg/dL (7-18) Creatinine 0.8 MG/DL (0.55-1.30) Estimat Glomerular Filtration Rate > 60 mL/min (>60) Glucose Level 91 MG/DL (74-106) Calcium Level 9.0 MG/DL (8.5-10.1) Magnesium Level 2.0 MG/DL (1.8-2.4) Total Bilirubin 0.4 MG/DL (0.2-1.0) Aspartate Amino Transf (AST/SGOT) 18 U/L (15-37) Alanine Aminotransferase (ALT/SGPT) 29 U/L (12-78) Alkaline Phosphatase 98 U/L (46-116) Total Protein 8.0 G/DL (6.4-8.2) Albumin 3.5 G/DL (3.4-5.0) Globulin 4.5 g/dL Albumin/Globulin Ratio 0.8 (1.0-2.7) L Lipase 94 U/L (73-393) Urine Opiates Screen Negative (NEGATIVE) Urine Barbiturates Screen Negative (NEGATIVE) Phencyclidine (PCP) Screen Negative (NEGATIVE) Urine Amphetamines Screen Negative (NEGATIVE) Urine Benzodiazepines Screen Negative (NEGATIVE) Urine Cocaine Screen Negative (NEGATIVE) Urine Marijuana (THC) Screen Negative (NEGATIVE) Microbiology Date/Time Source Procedure Growth Status 06/06/20 12:25 Nasopharynx SARS-CoV-2 RdRp Gene Assay - Final Complete Height (Feet): 5 Height (Inches): 1.00 Weight (Pounds): 220 Medications Current Medications Medications (Trade) Dose Ordered Sig/Thelma Route PRN Reason Start Time Stop Time Status Last Admin Dose Admin Acetaminophen (Tylenol) 650 mg Q4H PRN ORAL Mild Pain (Pain Scale 1-3) 06/06/20 16:15 07/06/20 16:14 Acetaminophen (Tylenol) 650 mg Q4H PRN ORAL Temp >100.5 06/06/20 16:15 07/06/20 16:14 Bisacodyl (Dulcolax) 10 mg HSPRN PRN RECTAL Constipation 06/06/20 16:15 09/04/20 16:14 Dextrose (Dextrose 50%) 25 ml Q30M PRN IV Hypoglycemia 06/06/20 16:15 09/04/20 16:14 Dextrose (Dextrose 50%) 50 ml Q30M PRN IV Hypoglycemia 06/06/20 16:15 09/04/20 16:14 Docusate Sodium (Colace) 100 mg EVERY 12 HOURS ORAL 06/07/20 09:00 07/07/20 08:59 Gadobutrol (Gadavist) 7.5 mmol PRN PRN IV mrcp 06/06/20 16:15 06/08/20 16:14 Heparin Sodium (Porcine) (Heparin 5000 units/ml) 5,000 units EVERY 12 HOURS SUBQ 06/07/20 09:00 07/22/20 08:59 Hydromorphone HCl (Dilaudid) 0.5 mg Q4H PRN IVP For Pain scale 4-10 06/06/20 16:15 06/13/20 16:14 Hydromorphone HCl (Dilaudid) 1 mg ONCE IVP 06/06/20 16:15 06/06/20 17:15 Lactated Ringer's 1,000 ml @ 100 mls/hr Q10H ONCE IV 06/06/20 17:00 06/07/20 02:59 Lactated Ringer's 1,000 ml @ 150 mls/hr Q6H40M IV 06/07/20 03:00 07/07/20 02:59 Ondansetron HCl (Zofran) 4 mg Q6H PRN IVP Nausea & Vomiting 06/06/20 16:15 07/06/20 16:14 Pantoprazole (Protonix) 40 mg DAILY IV 06/06/20 17:00 07/06/20 16:59 Assessment/Plan Problem List: (1) Pancreatitis ICD Codes: K85.90 - Acute pancreatitis without necrosis or infection, unspecified SNOMED: 61539236 (2) Intractable abdominal pain ICD Codes: R10.9 - Unspecified abdominal pain SNOMED: 50333260 (3) Morbid obesity with BMI of 40.0-44.9, adult ICD Codes: E66.01 - Morbid (severe) obesity due to excess calories; Z68.41 - Body mass index (BMI) 40.0-44.9, adult SNOMED: 757487986, 753185362, 52974268220408 (4) Cholelithiasis ICD Codes: K80.20 - Calculus of gallbladder without cholecystitis without obstruction SNOMED: 957178301 Assessment/Plan: 34 year old female with a PMH of gall stone pancreatitis s/p cholecystomy at [facility] 1 month ago presents with 1 week history of epigastric pain radiating the the back. #Intractable abdominal pain #Pancreatitis? #Hx of Cholecystitis s/p Cholecystomy -Inpatient care -Pain control -LR 150cc Hr -MRCP -NPO -Consult surgery -Consult GI DVT ppx with heparin subq I spent 76 minute on this patient wiht 45 minutes on care coordination and counseling. I discussed with consultants, RN, and pharmacy. Reviewed imaging and labs. Micah Rodríguez M.D. Jun 06, 2020 17:07
--- NOTE | 2020-06-06 19:00 | NUR ---
NURSE NOTES: Patient able to rest,pain has lessen patient state since receiving pain medcation.Remains NPO.IV fluids as ordered.Call light within reach.
--- NOTE | 2020-06-06 19:30 | NUR ---
HAND-OFF: Report given to Rishabh WOODS.
--- NOTE | 2020-06-06 19:30 | NUR ---
NURSE HAND-OFF: Cb WOODS Important Events on Shift:[] Patient Status: [] Diet: []NPO Pending Orders: [] Pending Results/Labs:[] Pending MD notification:[] Latest Vital Signs: Temperature 98.6 , Pulse 92 , B/P 135 /75 , Respiratory Rate 20 , O2 SAT 100 , Room Air, O2 Flow Rate . Vital Sign Comment: [] Latest Beckett Fall Score: 35 Fall Risk: Medium Risk Safety Measures: Call light Within Reach, Bed Alarm , Side Rails Side Rails x2, Bed position Low and Locked. Fall Precautions: Report given to []. Addendum: 06/06/20 at 2031 by JULIA PAUL RN RN HAND-OFF: Report given to Rishabh WOODS.
--- NOTE | 2020-06-06 19:36 | NUR ---
NURSE NOTES: The patient is alert and oriented x4, Is stable and does not appear to be in any distress at this time.She is ambulatory without any assistance from the nurses .The Resp is even and unlabored and the bilateral lung sounds clear on auscultation.She has a new IV line inserted on the RFA 24g that is patent and asymptomatic. The bed in low and locked position and the call light within easy reach. Will continue to monitor as indicated.
[2020-06-06] MEDS: LR 1000ml 1,000 ML IV SCH (19:49)
[2020-06-06 20:00] VITALS: BP 125/75
[2020-06-06 21:22] VITALS: BP 142/75
[2020-06-06] MEDS: Hydromorphone 0.5mg/0.5ml inj IVP PRN (21:48)
[2020-06-07] VITALS: BP 116/65
[2020-06-07] MEDS: LR 1000ml 1,000 ML IV SCH ×4 (02:26→22:31)
[2020-06-07] MEDS: Hydromorphone 0.5mg/0.5ml inj IVP PRN ×2 (02:27→08:38)
[2020-06-07 04:00] VITALS: BP 108/58
--- NOTE | 2020-06-07 05:00 | NUR ---
NURSE NOTES: The patient slept the entire night and does not appear to be in any distress. She complained of abdominal pain and was given her PRN Dilaudid x2 times well tolerated. The is no evidence of SOB or acute distress at this time. She remained NPO and is running lactated ringers @ 150 ml/hr well tolerated. will continue to monitor as indicated.
--- NOTE | 2020-06-07 07:20 | NUR ---
HAND-OFF: Report given to Judit WOODS.Endorsed patient is NPO
[2020-06-07 07:21] LABS: BASOPHILS % (AUTO) 0.8 % (0.0-2.0); EOSINOPHILS % (AUTO) 3.4 % (0.0-3.0); HEMATOCRIT 39.7 % (37.0-47.0); LYMPHOCYTES % (AUTO) 40.5 % (20.0-45.0); MEAN CORPUSCULAR VOLUME 92 FL (80-99); MONOCYTES % (AUTO) 5.6 % (1.0-10.0); NEUTROPHILS % (AUTO) 49.7 % (45.0-75.0); PLATELET COUNT 292 K/UL (150-450); RED BLOOD COUNT 4.31 M/UL (4.20-5.40); RED CELL DISTRIBUTION WIDTH 11.2 % (11.6-14.8); WHITE BLOOD COUNT 5.3 K/UL (4.8-10.8)
[2020-06-07 07:42] LABS: ALANINE AMINOTRANSFERASE 55 U/L (12-78); ALBUMIN 3.1 G/DL (3.4-5.0); ALBUMIN/GLOBULIN RATIO 0.8 (1.0-2.7); ALKALINE PHOSPHATASE 98 U/L (46-116); ANION GAP 6 mmol/L (5-15); ASPARTATE AMINO TRANSFERASE 35 U/L (15-37); BILIRUBIN,TOTAL 0.5 MG/DL (0.2-1.0); BLOOD UREA NITROGEN 11 mg/dL (7-18); CALCIUM 8.5 MG/DL (8.5-10.1); CARBON DIOXIDE 27 MMOL/L (21-32); CHLORIDE 106 MMOL/L (98-107); CHOLESTEROL 152 MG/DL (< 200); CREATININE 0.9 MG/DL (0.55-1.30); HDL CHOLESTEROL 60 MG/DL (40-60); POTASSIUM 3.7 MMOL/L (3.5-5.1); SODIUM 139 MMOL/L (136-145); TRIGLYCERIDES 52 MG/DL (30-150)
[2020-06-07 08:00] VITALS: BP 110/74
--- NOTE | 2020-06-07 08:35 | NUR ---
NURSE NOTES: Patient awake and alert and oriented.IV fluids infusing as ordered.Patient complaint of abdominal pain,will give pain medication as ordered.Call light within reach.
[2020-06-07] MEDS: Pantoprazole Inj IV SCH (08:42)
[2020-06-07] MEDS: Heparin 5000 units/ml inj SUBQ SCH ×2 (08:44→21:18)
[2020-06-07] MEDS: Docusate 100mg cap ORAL SCH ×2 (09:25→21:12)
--- NOTE | 2020-06-07 10:31 | Diagnostic Imaging Report ---
Indication: Cough Technique: One view of the chest Comparison: none Findings: Lungs and pleural spaces are clear. Heart size is normal. Impression: No acute process
--- NOTE | 2020-06-07 11:42 | General Progress Note ---
Assessment/Plan Assessment/Plan: recent gallstone pancreatitis s/p ERCP and PD stent per patient no elevated lipase today plan MRCP repeat labs ivf pain control fu surg recs Subjective ROS Limited/Unobtainable: Yes Allergies: Coded Allergies: IODINE (Verified Allergy, Unknown, 01/14/20) Shrimp (Verified Allergy, Unknown, 12/20/16) Objective Last 24 Hour Vital Signs Date Time Temp Pulse Resp B/P (MAP) Pulse Ox O2 Delivery O2 Flow Rate FiO2 06/07/20 09:00 Room Air 06/07/20 08:00 97.9 64 18 110/74 (86) 97 06/07/20 04:00 98.2 67 18 108/58 (75) 95 06/07/20 00:00 98.1 71 18 116/65 (82) 96 06/06/20 21:22 98.0 74 19 142/75 (97) 93 06/06/20 21:00 Room Air 06/06/20 20:00 98.0 79 19 125/75 (92) 97 06/06/20 16:00 97.9 70 20 136/70 (92) 93 06/06/20 15:38 Room Air 06/06/20 15:10 98.6 92 20 135/75 100 Room Air 06/06/20 15:01 98.5 88 16 136/72 100 Room Air 06/06/20 13:10 98.8 06/06/20 13:00 98.8 79 15 125/69 99 Room Air 06/06/20 12:34 98.8 06/06/20 12:01 98.8 Intake and Output 06/06/20 06/07/20 19:00 07:00 Intake Total 1000 ml 600 ml Output Total 0 ml Balance 1000 ml 600 ml Intake IV Total 1000 ml 600 ml Output Urine Total 0 ml # Voids 1 2 Laboratory Tests 06/07/20 06:36: White Blood Count 5.3, Red Blood Count 4.31, Hemoglobin 13.0, Hematocrit 39.7, Mean Corpuscular Volume 92, Mean Corpuscular Hemoglobin 30.2, Mean Corpuscular Hemoglobin Concent 32.8, Red Cell Distribution Width 11.2L, Platelet Count 292, Mean Platelet Volume 6.3L, Neutrophils (%) (Auto) 49.7, Lymphocytes (%) (Auto) 40.5, Monocytes (%) (Auto) 5.6, Eosinophils (%) (Auto) 3.4H, Basophils (%) (Auto ) 0.8, Sodium Level 139, Potassium Level 3.7, Chloride Level 106, Carbon Dioxide Level 27, Anion Gap 6, Blood Urea Nitrogen 11, Creatinine 0.9, Estimat Glomerular Filtration Rate > 60, Glucose Level 81, Hemoglobin A1c 5.1, Calcium Level 8.5, Total Bilirubin 0.5, Aspartate Amino Transf (AST/SGOT) 35, Alanine Aminotransferase (ALT/SGPT) 55, Alkaline Phosphatase 98, Total Protein 7.0, Albumin 3.1L, Globulin 3.9, Albumin/Globulin Ratio 0.8L, Triglycerides Level 52 , Cholesterol Level 152, LDL Cholesterol 87, HDL Cholesterol 60, Cholesterol/ HDL Ratio 2.5L, Thyroid Stimulating Hormone (TSH) 0.720 Height (Feet): 5 Height (Inches): 1.00 Weight (Pounds): 220 General Appearance: alert EENT: normal ENT inspection Neck: supple Cardiovascular: normal rate Respiratory/Chest: lungs clear Abdomen: soft, hypoactive bowel sounds, tender Extremities: non-tender Ronaldo Armenta MD Jun 07, 2020 11:42
[2020-06-07 12:00] VITALS: BP 111/75
--- NOTE | 2020-06-07 12:23 | General Progress Note ---
Assessment/Plan Problem List: (1) Pancreatitis ICD Codes: K85.90 - Acute pancreatitis without necrosis or infection, unspecified SNOMED: 54714274 (2) Intractable abdominal pain ICD Codes: R10.9 - Unspecified abdominal pain SNOMED: 86954756 (3) Morbid obesity with BMI of 40.0-44.9, adult ICD Codes: E66.01 - Morbid (severe) obesity due to excess calories; Z68.41 - Body mass index (BMI) 40.0-44.9, adult SNOMED: 457045741, 710729211, [id number] (4) Cholelithiasis ICD Codes: K80.20 - Calculus of gallbladder without cholecystitis without obstruction SNOMED: 361672416 Assessment/Plan: 34 year old female with a PMH of gall stone pancreatitis s/p cholecystomy at [facility] 1 month ago presents with 1 week history of epigastric pain radiating the the back. #Intractable abdominal pain - improving #Pancreatitis? #Hx of Cholecystitis s/p Cholecystectomy -Inpatient care -Pain control -LR 150cc Hr -MRCP -advance diet as tolerated -Consult surgery -Consult GI DVT ppx with heparin subq I spent 34 minute on this patient wiht 19 minutes on care coordination and counseling. I discussed with consultants, RN, and pharmacy. Reviewed imaging and labs. Subjective Date patient seen: Jun 07, 2020 Time patient seen: 08:00 ROS Limited/Unobtainable: No Constitutional: Denies: diaphoresis, fever, malaise, weakness HEENT: Denies: eye pain, double vision, mouth pain Cardiovascular: Denies: edema, irregular heart rate, lightheadedness Respiratory: Denies: orthopnea, shortness of breath, SOB with excertion, SOB at rest Gastrointestinal/Abdominal: Denies: tarry stools, blood in stool, constipated, diarrhea, difficulty swallowing, nausea, poor appetite, poor fluid intake, rectal bleeding, vomiting Genitourinary: Denies: burning, discharge, frequency, hematuria Neurologic/Psychiatric: Denies: anxiety, depressed, emotional problems, headache Endocrine: Denies: excessive sweating, flushing, intolerance to cold, intolerance to heat, increased hunger Hematologic/Lymphatic: Denies: anemia Allergies: Coded Allergies: IODINE (Verified Allergy, Unknown, 01/14/20) Shrimp (Verified Allergy, Unknown, 12/20/16) Subjective Patient feels much better today.no abdominal pain. Objective Last 24 Hour Vital Signs Date Time Temp Pulse Resp B/P (MAP) Pulse Ox O2 Delivery O2 Flow Rate FiO2 06/07/20 09:00 Room Air 06/07/20 08:00 97.9 64 18 110/74 (86) 97 06/07/20 04:00 98.2 67 18 108/58 (75) 95 06/07/20 00:00 98.1 71 18 116/65 (82) 96 06/06/20 21:22 98.0 74 19 142/75 (97) 93 06/06/20 21:00 Room Air 06/06/20 20:00 98.0 79 19 125/75 (92) 97 06/06/20 16:00 97.9 70 20 136/70 (92) 93 06/06/20 15:38 Room Air 06/06/20 15:10 98.6 92 20 135/75 100 Room Air 06/06/20 15:01 98.5 88 16 136/72 100 Room Air 06/06/20 13:10 98.8 06/06/20 13:00 98.8 79 15 125/69 99 Room Air 06/06/20 12:34 98.8 Intake and Output 06/06/20 06/07/20 19:00 07:00 Intake Total 1000 ml 600 ml Output Total 0 ml Balance 1000 ml 600 ml Intake IV Total 1000 ml 600 ml Output Urine Total 0 ml # Voids 1 2 Laboratory Tests 06/07/20 06:36: White Blood Count 5.3, Red Blood Count 4.31, Hemoglobin 13.0, Hematocrit 39.7, Mean Corpuscular Volume 92, Mean Corpuscular Hemoglobin 30.2, Mean Corpuscular Hemoglobin Concent 32.8, Red Cell Distribution Width 11.2L, Platelet Count 292, Mean Platelet Volume 6.3L, Neutrophils (%) (Auto) 49.7, Lymphocytes (%) (Auto) 40.5, Monocytes (%) (Auto) 5.6, Eosinophils (%) (Auto) 3.4H, Basophils (%) (Auto ) 0.8, Sodium Level 139, Potassium Level 3.7, Chloride Level 106, Carbon Dioxide Level 27, Anion Gap 6, Blood Urea Nitrogen 11, Creatinine 0.9, Estimat Glomerular Filtration Rate > 60, Glucose Level 81, Hemoglobin A1c 5.1, Calcium Level 8.5, Total Bilirubin 0.5, Aspartate Amino Transf (AST/SGOT) 35, Alanine Aminotransferase (ALT/SGPT) 55, Alkaline Phosphatase 98, Total Protein 7.0, Albumin 3.1L, Globulin 3.9, Albumin/Globulin Ratio 0.8L, Triglycerides Level 52 , Cholesterol Level 152, LDL Cholesterol 87, HDL Cholesterol 60, Cholesterol/ HDL Ratio 2.5L, Thyroid Stimulating Hormone (TSH) 0.720 Height (Feet): 5 Height (Inches): 1.00 Weight (Pounds): 220 General Appearance: WD/WN, no apparent distress, alert, obese EENT: PERRL/EOMI, normal ENT inspection Neck: normal alignment, supple, normal inspection Cardiovascular: normal rate, regular rhythm, no gallop/murmur, no JVD Respiratory/Chest: chest wall non-tender, lungs clear, normal breath sounds, no respiratory distress, no accessory muscle use Abdomen: non tender, soft, no mass, hypoactive bowel sounds Extremities: normal range of motion, non-tender, normal inspection Edema: no edema noted Arm (L), no edema noted Arm (R), no edema noted Leg (L), no edema noted Leg (R), no edema noted Pedal (L), no edema noted Pedal (R), no edema noted 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 Jun 07, 2020 12:23
--- NOTE | 2020-06-07 12:24 | NUR ---
CASE MANAGEMENT: REVIEW 34 YEAR OLD FEMALE PRESENTED TO ED FROM HOME CC: ABD PAIN . BLACK STOOL SI: ACUTE PANCREATITIS . T 98.8 HR 72 RR 16 BP 125/69 SAT 99% ROOM AIR UA: PROTEIN 2+ BLOOD 5+ LEUKOCYTE ESTERASE 2+ MRI ABD MRCP PENDING IS: NS IVF BOLUS X1 MORPHINE IV X1 ZOFRAN IV X1 PROTONIX IV X1 DILAUDID IV X1 SURGERY CONSULTED PATIENT ADMITTED TO MED/SURG UNIT 06/06/2020 DCP: PATIENT IS FROM HOME
[2020-06-07] MEDS ORDERED: Morphine Sulfate 2mg/ml Inj(IV/IM USE ONLY) IVP PRN (12:38)
[2020-06-07] MEDS: Morphine Sulfate 2mg/ml Inj(IV/IM USE ONLY) IVP PRN ×3 (13:03→23:11)
--- NOTE | 2020-06-07 14:33 | Consultation ---
History of Present Illness General Date patient seen: Jun 07, 2020 Reason for Hospitalization: Abdominal Pain Present Illness HPI Patient is a 34-year-old female past medical history of obesity and pancreatitis a month ago who presents to the ER complaining of epigastric pain that is constantly there since her cholecystectomy in February but got worse prior to coming to ED. She denies any fever or chills. She denies any nausea or vomiting. She denies any dysuria or hematuria. She states that she was admitted 1 month ago for pancreatitis. She denies any chest pain or shortness of breath. Had cholecystectomy in February at [facility] followed by a pancreatic stent placement which was removed in March. Denies any alcohol or drug use. States she is barely tolerating liquids. Admitted further care and management. Labs normal surgery called evaluate assist with care given recent surgery. Allergies: Coded Allergies: IODINE (Verified Allergy, Unknown, 01/14/20) Shrimp (Verified Allergy, Unknown, 12/20/16) COVID-19 Screening Contact w/high risk pt: No Recent Travel to affected area: No Experienced COVID-19 symptoms?: No Medication History No Active Prescriptions or Reported Meds Patient History History Provided By: Patient, Medical Record, PMD Healthcare decision maker Resuscitation status Advanced Directive on File Past Medical/Surgical History Past Medical/Surgical History: (1) Hiatal hernia (2) Gastritis (3) Headache (4) Biliary colic (5) Solitary lung nodule (6) Intractable abdominal pain (7) Cholelithiasis (8) Morbid obesity with BMI of 40.0-44.9, adult (9) Pancreatitis Family History Family History: FH: diabetes mellitus Review of Systems Review of Symptoms General ROS: no weight loss or fever Psychological ROS: no depression or mood changes, no memory loss Ophthalmic ROS: no visual changes or eye irritation ENT ROS: no nasal congestion, hearing loss, dizziness Allergy and Immunology ROS: no allergic symptoms or urticaria Hematological and Lymphatic ROS: no swollen glands, unusual bleeding or bruising Endocrine ROS: no polyuria, polydipsia, weight changes, temperature intolerance Respiratory ROS: no cough, shortness of breath, or wheezing Cardiovascular ROS: no chest pain or dyspnea on exertion Gastrointestinal ROS: ++ abdominal pain, no bright red blood in stool. Musculoskeletal ROS: no myalgias or arthralgias Neurological ROS: no TIA or stroke symptoms Dermatological ROS: no new or changing skin lesions, rashes or pruritis Physical Exam Physical Exam General appearance: alert, cooperative, no distress, appears stated age Head: Normocephalic, without obvious abnormality, atraumatic Eyes: conjunctivae/corneas clear. PERRL, EOM's intact. Fundi benign Throat: Lips, mucosa, and tongue normal. Teeth and gums normal Neck: supple, symmetrical, trachea midline, no adenopathy, thyroid: not enlarged, symmetric, no tenderness/mass/nodules, no carotid bruit and no JVD Lungs: clear to auscultation bilaterally Heart: regular rate and rhythm, S1, S2 normal, no murmur, click, rub or gallop Abdomen: soft, non-tender. Bowel sounds normal. No masses, no organomegaly Extremities: extremities normal, atraumatic, no cyanosis or edema Pulses: 2+ and symmetric Skin: Skin color, texture, turgor normal. No rashes or lesions Neurologic: Grossly normal Last 24 Hour Vital Signs Date Time Temp Pulse Resp B/P (MAP) Pulse Ox O2 Delivery O2 Flow Rate FiO2 06/07/20 09:00 Room Air 06/07/20 08:00 97.9 64 18 110/74 (86) 97 06/07/20 04:00 98.2 67 18 108/58 (75) 95 06/07/20 00:00 98.1 71 18 116/65 (82) 96 06/06/20 21:22 98.0 74 19 142/75 (97) 93 06/06/20 21:00 Room Air 06/06/20 20:00 98.0 79 19 125/75 (92) 97 06/06/20 16:00 97.9 70 20 136/70 (92) 93 06/06/20 15:38 Room Air 06/06/20 15:10 98.6 92 20 135/75 100 Room Air 06/06/20 15:01 98.5 88 16 136/72 100 Room Air Intake and Output 06/06/20 06/07/20 19:00 07:00 Intake Total 1000 ml 600 ml Output Total 0 ml Balance 1000 ml 600 ml Intake IV Total 1000 ml 600 ml Output Urine Total 0 ml # Voids 1 2 Laboratory Tests Test 06/07/20 06:36 White Blood Count 5.3 K/UL (4.8-10.8) Red Blood Count 4.31 M/UL (4.20-5.40) Hemoglobin 13.0 G/DL (12.0-16.0) Hematocrit 39.7 % (37.0-47.0) Mean Corpuscular Volume 92 FL (80-99) Mean Corpuscular Hemoglobin 30.2 PG (27.0-31.0) Mean Corpuscular Hemoglobin Concent 32.8 G/DL (32.0-36.0) Red Cell Distribution Width 11.2 % (11.6-14.8) L Platelet Count 292 K/UL (150-450) Mean Platelet Volume 6.3 FL (6.5-10.1) L Neutrophils (%) (Auto) 49.7 % (45.0-75.0) Lymphocytes (%) (Auto) 40.5 % (20.0-45.0) Monocytes (%) (Auto) 5.6 % (1.0-10.0) Eosinophils (%) (Auto) 3.4 % (0.0-3.0) H Basophils (%) (Auto) 0.8 % (0.0-2.0) Sodium Level 139 MMOL/L (136-145) Potassium Level 3.7 MMOL/L (3.5-5.1) Chloride Level 106 MMOL/L (98-107) Carbon Dioxide Level 27 MMOL/L (21-32) Anion Gap 6 mmol/L (5-15) Blood Urea Nitrogen 11 mg/dL (7-18) Creatinine 0.9 MG/DL (0.55-1.30) Estimat Glomerular Filtration Rate > 60 mL/min (>60) Glucose Level 81 MG/DL (74-106) Hemoglobin A1c 5.1 % (4.3-6.0) Calcium Level 8.5 MG/DL (8.5-10.1) Total Bilirubin 0.5 MG/DL (0.2-1.0) Aspartate Amino Transf (AST/SGOT) 35 U/L (15-37) Alanine Aminotransferase (ALT/SGPT) 55 U/L (12-78) Alkaline Phosphatase 98 U/L (46-116) Total Protein 7.0 G/DL (6.4-8.2) Albumin 3.1 G/DL (3.4-5.0) L Globulin 3.9 g/dL Albumin/Globulin Ratio 0.8 (1.0-2.7) L Triglycerides Level 52 MG/DL (30-150) Cholesterol Level 152 MG/DL (< 200) LDL Cholesterol 87 mg/dL (<100) HDL Cholesterol 60 MG/DL (40-60) Cholesterol/HDL Ratio 2.5 (3.3-4.4) L Thyroid Stimulating Hormone (TSH) 0.720 uiU/mL (0.358-3.740) Height (Feet): 5 Height (Inches): 1.00 Weight (Pounds): 220 Medications Current Medications Medications (Trade) Dose Ordered Sig/Thelma Route PRN Reason Start Time Stop Time Status Last Admin Dose Admin Acetaminophen (Tylenol) 650 mg Q4H PRN ORAL Mild Pain (Pain Scale 1-3) 06/06/20 16:15 07/06/20 16:14 Acetaminophen (Tylenol) 650 mg Q4H PRN ORAL Temp >100.5 06/06/20 16:15 07/06/20 16:14 Acetaminophen/ Hydrocodone Bitart (Chappell 5/325) 1 tab Q4H PRN ORAL Moderate Pain (Pain Scale 4-6) 06/07/20 10:00 06/14/20 09:59 Bisacodyl (Dulcolax) 10 mg HSPRN PRN RECTAL Constipation 06/06/20 16:15 09/04/20 16:14 Dextrose (Dextrose 50%) 25 ml Q30M PRN IV Hypoglycemia 06/06/20 16:15 09/04/20 16:14 Dextrose (Dextrose 50%) 50 ml Q30M PRN IV Hypoglycemia 06/06/20 16:15 09/04/20 16:14 Docusate Sodium (Colace) 100 mg EVERY 12 HOURS ORAL 06/07/20 09:00 07/07/20 08:59 06/07/20 09:25 Gadobutrol (Gadavist) 7.5 mmol PRN PRN IV mrcp 06/06/20 16:15 06/08/20 16:14 Heparin Sodium (Porcine) (Heparin 5000 units/ml) 5,000 units EVERY 12 HOURS SUBQ 06/07/20 09:00 07/22/20 08:59 06/07/20 08:44 Lactated Ringer's 1,000 ml @ 150 mls/hr Q6H40M IV 06/06/20 19:45 07/06/20 19:44 06/07/20 08:45 Morphine Sulfate (Morphine Sulfate) 2 mg Q4H PRN IVP Severe Pain (Pain Scale 7-10) 06/07/20 13:00 06/14/20 12:59 06/07/20 13:03 Ondansetron HCl (Zofran) 4 mg Q6H PRN IVP Nausea & Vomiting 06/06/20 16:15 07/06/20 16:14 Pantoprazole (Protonix) 40 mg DAILY IV 06/06/20 17:00 07/06/20 16:59 06/07/20 08:42 Assessment/Plan Problem List: (1) Solitary lung nodule ICD Codes: R91.1 - Solitary pulmonary nodule SNOMED: 228795859 (2) Intractable abdominal pain Assessment & Plan: History of gallstone pancreatitis and acute cholecystitis status post cholecystectomy at [facility] in February 2020. Pancreatic stent placed for pancreatitis prior at [facility] and removed in March 2020. Since has been having intermittent abdominal pain epigastric region denies any alcohol use believes may be her pancreatitis again. In emergency department labs normal lipase normal no signs of pancreatitis pain consistent as per patient. CT reviewed no acute findings noted. Examination benign at the bedside. No acute surgical invention indicated recommend at this time. Potential related to gastritis. No biliary or liver concerns at this time identified. Recommend diet as tolerated. Will follow with recommendations thank you {Pending MRCP Lack of enteric contrast limits assessment of the GI tract. There are a few colonic diverticula. No evidence of diverticulitis. Normal appendix. No small bowel distention. No free or loculated intraperitoneal gas or fluid. Distal esophagus, stomach, duodenum are unremarkable. There is a small but complex umbilical hernia which contains only fat. Lack of IV contrast limits assessment of the solid organs. The gallbladder has been removed. The liver, bile ducts, pancreas, spleen, adrenals, kidneys are unremarkable. There is a small accessory splenule incidentally noted. No renal arterial calculi, hydronephrosis, or hydroureter. The uterus and ovaries are unremarkable. The bladder is somewhat distended. The included lung bases demonstrate a 2 mm nodule at the posterior right lung base, image 18 series 5. The bones are unremarkable. Impression: Limited assessment of the GI tract, due to lack of enteric contrast administration. No gross acute abnormality. 2 mm right lobe lung nodule. No further follow-up necessary if there are no significant risk factors for lung carcinoma. If there are significant risk factors, recommend 6-12 month follow-up CT scan Incidental findings as noted, including small umbilical hernia contains only fat , small accessory splenule ICD Codes: R10.9 - Unspecified abdominal pain SNOMED: 26343360 (3) Cholelithiasis ICD Codes: K80.20 - Calculus of gallbladder without cholecystitis without obstruction SNOMED: 360416685 (4) Morbid obesity with BMI of 40.0-44.9, adult ICD Codes: E66.01 - Morbid (severe) obesity due to excess calories; Z68.41 - Body mass index (BMI) 40.0-44.9, adult SNOMED: 931311250, 703673364, 12402773694000 (5) Pancreatitis ICD Codes: K85.90 - Acute pancreatitis without necrosis or infection, unspecified SNOMED: 48238069 (6) Hiatal hernia ICD Codes: K44.9 - Diaphragmatic hernia without obstruction or gangrene SNOMED: 70017239 (7) Biliary colic ICD Codes: K80.50 - Calculus of bile duct without cholangitis or cholecystitis without obstruction SNOMED: 86492071 (8) Gastritis ICD Codes: K29.70 - Gastritis, unspecified, without bleeding SNOMED: 3699750 (9) Headache ICD Codes: R51 - Headache SNOMED: 10923973 Domingo Peter Jun 07, 2020 14:33
[2020-06-07 16:00] VITALS: BP 100/60
--- NOTE | 2020-06-07 16:05 | Diagnostic Imaging Report ---
Indication: Abdominal pain Technique: Coronal and axial single shot fast spin-echo breath-hold, axial T2 FRFSE, 2-D thick slab MRCP, AXIAL 2-D FIESTA fat saturated, axial 3-D dual echo breath-hold, water weighted axial LAVA FLEX, revealed 3-D MRCP images were obtained of the abdomen. MIP reconstructions were generated of the bile ducts Comparison: Abdomen pelvis CT dated 06/06/2020, abdominal sonogram dated 01/14/2020 Findings: The gallbladder has been removed. No biliary ductal dilatation or intraluminal biliary ductal filling defects. The downstream pancreatic duct is mildly ectatic. No pancreatic head mass demonstrated. No evidence of pancreatic swelling or peripancreatic phlegmon or edema. The spleen, adrenals, liver, right kidney all appear unremarkable. There is a small upper pole left renal cyst incidentally noted. There is also incidental finding of a cervical nabothian cyst, seen on the coronal reconstructed images, as well as evidence of some fluid in the endocervical canal. Impression: Absent gallbladder, postcholecystectomy. Negative for biliary ductal dilatation or evidence of choledocholithiasis. Nonspecific mild ectasia of the downstream pancreatic duct, of doubtful significance, could be related to stated clinical history of pancreatitis. Otherwise unremarkable pancreas. Incidental findings of small left renal cyst, cervical nabothian cyst, fluid in the endocervical canal
--- NOTE | 2020-06-07 19:14 | NUR ---
NURSE NOTES: Patient medicated per request for complaint of pain.Patient tolerating clear liquids with no complaint of nausea.patient is on her Menses.IV fluids continue to infuse as ordered.Call light within reach.
--- NOTE | 2020-06-07 19:25 | NUR ---
NURSE HAND-OFF:AIMEE RN Important Events on Shift:[] Patient Status: [] Diet: [Clear liquids] Pending Orders: [] Pending Results/Labs:[] Pending MD notification:[] Latest Vital Signs: Temperature 98.2 , Pulse 66 , B/P 100 /60 , Respiratory Rate 18 , O2 SAT 97 , Room Air, O2 Flow Rate . Vital Sign Comment: [] Latest Beckett Fall Score: 35 Fall Risk: Medium Risk Safety Measures: Call light Within Reach, Bed Alarm Zone 1, Side Rails Side Rails x1, Bed position Low and Locked. Fall Precautions: Yellow Socks Yellow Gown Patient Fall Education Report given to [].
--- NOTE | 2020-06-07 19:35 | NUR ---
NURSE NOTES: RECEIVED PATIENT FROM PEGGY DUMONT. PATIENT IS AWAKE, AAOX4, ON ROOM AIR, NO ACUTE DISTRESS NOTED. PATIENT DENIES SOB. PATIENT IS ON CLEAR LIQUID DIET, TOLERATING WELL. PIV ON RIGHT HAND 24G, PATENT, RUNNING LR @150ML/HR. BED IS LOCKED AND LOW, BED ALARMS ACTIVE, SIDE RAILS UPX2 AND CALL LIGHT IS WITHIN REACH. WILL CONTINUE TO MONITOR.
[2020-06-07 20:00] VITALS: BP 104/66
--- NOTE | 2020-06-07 20:09 | Neurology Progress Note ---
Interim History Interim History ROS Limited/Unobtainable: No Interim History 34 year old female with a PMH of gall stone pancreatitis s/p cholecystomy at [facility] 1 month ago presents with 1 week history of epigastric pain radiating the the back. She states the pain is 10/10, sharp, not alleviated by Tylenol. She can not eat or drink anything without pain. Her last BM was this morning and was normal with no blood or black stool. she sates that she has had a pancreatic stent in the past which was recently taken out. She denies fever, chills, recent travel, chest pain, leg pain, constipation, or headache. Feels better now, pain controlled Objective Physical Exam Last Vital Signs Date Time Temp Pulse Resp B/P (MAP) Pulse Ox O2 Delivery O2 Flow Rate FiO2 06/07/20 16:00 98.2 66 18 100/60 (73) 97 06/07/20 09:00 Room Air Laboratory Tests Test 06/07/20 06:36 White Blood Count 5.3 K/UL (4.8-10.8) Red Blood Count 4.31 M/UL (4.20-5.40) Hemoglobin 13.0 G/DL (12.0-16.0) Hematocrit 39.7 % (37.0-47.0) Mean Corpuscular Volume 92 FL (80-99) Mean Corpuscular Hemoglobin 30.2 PG (27.0-31.0) Mean Corpuscular Hemoglobin Concent 32.8 G/DL (32.0-36.0) Red Cell Distribution Width 11.2 % (11.6-14.8) L Platelet Count 292 K/UL (150-450) Mean Platelet Volume 6.3 FL (6.5-10.1) L Neutrophils (%) (Auto) 49.7 % (45.0-75.0) Lymphocytes (%) (Auto) 40.5 % (20.0-45.0) Monocytes (%) (Auto) 5.6 % (1.0-10.0) Eosinophils (%) (Auto) 3.4 % (0.0-3.0) H Basophils (%) (Auto) 0.8 % (0.0-2.0) Sodium Level 139 MMOL/L (136-145) Potassium Level 3.7 MMOL/L (3.5-5.1) Chloride Level 106 MMOL/L (98-107) Carbon Dioxide Level 27 MMOL/L (21-32) Anion Gap 6 mmol/L (5-15) Blood Urea Nitrogen 11 mg/dL (7-18) Creatinine 0.9 MG/DL (0.55-1.30) Estimat Glomerular Filtration Rate > 60 mL/min (>60) Glucose Level 81 MG/DL (74-106) Hemoglobin A1c 5.1 % (4.3-6.0) Calcium Level 8.5 MG/DL (8.5-10.1) Total Bilirubin 0.5 MG/DL (0.2-1.0) Aspartate Amino Transf (AST/SGOT) 35 U/L (15-37) Alanine Aminotransferase (ALT/SGPT) 55 U/L (12-78) Alkaline Phosphatase 98 U/L (46-116) Total Protein 7.0 G/DL (6.4-8.2) Albumin 3.1 G/DL (3.4-5.0) L Globulin 3.9 g/dL Albumin/Globulin Ratio 0.8 (1.0-2.7) L Triglycerides Level 52 MG/DL (30-150) Cholesterol Level 152 MG/DL (< 200) LDL Cholesterol 87 mg/dL (<100) HDL Cholesterol 60 MG/DL (40-60) Cholesterol/HDL Ratio 2.5 (3.3-4.4) L Thyroid Stimulating Hormone (TSH) 0.720 uiU/mL (0.358-3.740) General: well developed Head: normocophalic Neck: no rigidity EENT: benign Neurologic Exam Mental Status: oriented x4 Speech: normal speech Language: normal language Impression/Recommendations Problems: (1) Solitary lung nodule (2) Intractable abdominal pain (3) Cholelithiasis (4) Morbid obesity with BMI of 40.0-44.9, adult (5) Pancreatitis (6) Hiatal hernia (7) Biliary colic (8) Gastritis (9) Headache Diagnostic Impression Acute encephalopathy, metabolic pancreatitis s/p cholecystomy obesity Dizziness IVFs pain control Kellyo Jim Block MD Jun 07, 2020 20:09
[2020-06-07] MEDS: HYDROcodone/Acetamin 5/325 tab ORAL PRN (21:13)
[2020-06-08] VITALS: BP 109/69
[2020-06-08] MEDS: Morphine Sulfate 2mg/ml Inj(IV/IM USE ONLY) IVP PRN ×2 (03:10→07:21)
[2020-06-08 04:00] VITALS: BP 102/60
[2020-06-08] MEDS: LR 1000ml 1,000 ML IV SCH ×2 (05:05→11:50)
--- NOTE | 2020-06-08 06:56 | NUR ---
NURSE HAND-OFF: Important Events on Shift: STILL C/O EPIGASTRIC PAIN, PRN MORPHINE 2MG PRN GIVEN AROUND THE CLOCK. Patient Status: STABLE Diet: CLEAR LIQUID Pending Orders: N/A Pending Results/Labs: AMYLASE, LIPASE, CMP, CBC Pending MD notification: N/A Latest Vital Signs: Temperature 97.7 , Pulse 60 , B/P 102 /60 , Respiratory Rate 18 , O2 SAT 98 , Room Air, O2 Flow Rate . Vital Sign Comment: STABLE Latest Beckett Fall Score: 35 Fall Risk: Medium Risk Safety Measures: Call light Within Reach, Bed Alarm Zone 1, Side Rails Side Rails x1, Bed position Low and Locked. Fall Precautions: Yellow Socks Yellow Gown Patient Fall Education
[2020-06-08 07:05] LABS: ALANINE AMINOTRANSFERASE 34 U/L (12-78); ALBUMIN/GLOBULIN RATIO 0.8 (1.0-2.7); ALKALINE PHOSPHATASE 88 U/L (46-116); AMYLASE 46 U/L (25-115); ANION GAP 5 mmol/L (5-15); ASPARTATE AMINO TRANSFERASE 19 U/L (15-37); BILIRUBIN,TOTAL 0.4 MG/DL (0.2-1.0); BLOOD UREA NITROGEN 9 mg/dL (7-18); CALCIUM 8.5 MG/DL (8.5-10.1); CARBON DIOXIDE 27 MMOL/L (21-32); CHLORIDE 107 MMOL/L (98-107); CREATININE 0.8 MG/DL (0.55-1.30); POTASSIUM 3.9 MMOL/L (3.5-5.1); SODIUM 139 MMOL/L (136-145)
[2020-06-08 07:27] LABS: EOSINOPHILS % (AUTO) 4.1 % (0.0-3.0); HEMOGLOBIN 12.3 G/DL (12.0-16.0); LYMPHOCYTES % (AUTO) 50.2 % (20.0-45.0); MEAN CORPUSCULAR VOLUME 92 FL (80-99); MONOCYTES % (AUTO) 4.9 % (1.0-10.0); NEUTROPHILS % (AUTO) 39.8 % (45.0-75.0); PLATELET COUNT 280 K/UL (150-450); RED BLOOD COUNT 4.01 M/UL (4.20-5.40); WHITE BLOOD COUNT 5.9 K/UL (4.8-10.8)
--- NOTE | 2020-06-08 07:42 | NUR ---
HAND-OFF: Report given to PEGGY BRASWELL.
[2020-06-08 08:00] VITALS: BP 120/67
[2020-06-08] MEDS: Heparin 5000 units/ml inj SUBQ SCH (09:00)
[2020-06-08] MEDS: Pantoprazole Inj IV SCH (09:14)
[2020-06-08] MEDS: Docusate 100mg cap ORAL SCH (09:14)
[2020-06-08] MEDS: HYDROcodone/Acetamin 5/325 tab ORAL PRN (09:15)
--- NOTE | 2020-06-08 11:22 | General Progress Note ---
Assessment/Plan Assessment/Plan: recent gallstone pancreatitis s/p ERCP and PD stent per patient no elevated lipase MRCP>>>WNL no plans for ercp at this time repeat labs ivf pain control fu surg recs Subjective ROS Limited/Unobtainable: Yes Allergies: Coded Allergies: IODINE (Verified Allergy, Unknown, 01/14/20) Shrimp (Verified Allergy, Unknown, 12/20/16) Objective Last 24 Hour Vital Signs Date Time Temp Pulse Resp B/P (MAP) Pulse Ox O2 Delivery O2 Flow Rate FiO2 06/08/20 09:45 97.7 06/08/20 09:00 Room Air 06/08/20 08:00 98.1 69 18 120/67 (84) 97 06/08/20 07:51 97.7 06/08/20 04:00 97.7 60 18 102/60 (74) 98 06/08/20 00:00 98.4 89 20 109/69 (82) 96 06/07/20 21:00 Room Air 06/07/20 20:00 99.1 72 20 104/66 (79) 97 06/07/20 16:00 98.2 66 18 100/60 (73) 97 06/07/20 12:00 98.6 70 19 111/75 (87) 97 Intake and Output 06/07/20 06/08/20 19:00 07:00 Intake Total 2250 ml 750 ml Balance 2250 ml 750 ml Intake Oral 900 ml IV Total 1350 ml 750 ml # Voids 3 2 Laboratory Tests 06/08/20 06:10: White Blood Count 5.9, Red Blood Count 4.01L, Hemoglobin 12.3, Hematocrit 37.0, Mean Corpuscular Volume 92, Mean Corpuscular Hemoglobin 30.6, Mean Corpuscular Hemoglobin Concent 33.2, Red Cell Distribution Width 12.0, Platelet Count 280, Mean Platelet Volume 6.5, Neutrophils (%) (Auto) 39.8L, Lymphocytes (%) (Auto) 50.2H, Monocytes (%) (Auto) 4.9, Eosinophils (%) (Auto) 4.1H, Basophils (%) ( Auto) 1.0, Sodium Level 139, Potassium Level 3.9, Chloride Level 107, Carbon Dioxide Level 27, Anion Gap 5, Blood Urea Nitrogen 9, Creatinine 0.8, Estimat Glomerular Filtration Rate > 60, Glucose Level 88, Calcium Level 8.5, Total Bilirubin 0.4, Aspartate Amino Transf (AST/SGOT) 19, Alanine Aminotransferase ( ALT/SGPT) 34, Alkaline Phosphatase 88, Total Protein 6.9, Albumin 3.0L, Globulin 3.9, Albumin/Globulin Ratio 0.8L, Amylase Level 46, Lipase 91 Height (Feet): 5 Height (Inches): 1.00 Weight (Pounds): 220 General Appearance: no apparent distress EENT: normal ENT inspection Neck: supple Cardiovascular: normal rate Respiratory/Chest: decreased breath sounds Abdomen: hypoactive bowel sounds, hernia Extremities: non-tender Ronaldo Armenta MD Jun 08, 2020 11:22
[2020-06-08 11:53] VITALS: BP 95/58
[2020-06-08] MEDS ORDERED: HYDROCODON-ACE1 EA15 ORAL (12:02)
[2020-06-08] MEDS ORDERED: DULCOLAX10 MG RC (12:03)
--- NOTE | 2020-06-08 12:09 | Discharge Summary ---
Discharge Summary Hospital Course Date of Admission Jun 06, 2020 at 12:47 Date of Discharge 06/08/20 Admitting Diagnosis PANCREATITIS HPI Priscilla Gustafson is a 34 year old female who was admitted on May at 12:47 for Pancreatitis 34 year old female with a PMH of gall stone pancreatitis s/p cholecystomy at [facility] 1 month ago presents with 1 week history of epigastric pain radiating the the back. She states the pain is 10/10, sharp, not alleviated by Tylenol. She can not eat or drink anything without pain. Her last BM was this morning and was normal with no blood or black stool. she sates that she has had a pancreatic stent in the past which was recently taken out. She denies fever, chills, recent travel, chest pain, leg pain, constipation, or headache. Consultations GI Surgery Neurology Hospital Course 34 year old female with a PMH of gall stone pancreatitis s/p cholecystomy at [facility] 1 month ago presents with 1 week history of epigastric pain radiating the the back. Pain imroved with NPO fluids and pain medication. MRCP unremarkable. Diet advanced and is tolerating well with no pain. She will follow up with her GI doctor at [facility]. ED precuations given #Intractable abdominal pain - improving #Pancreatitis? - ruled out #Hx of Cholecystitis s/p Cholecystectomy -Inpatient care -Pain control -LR 150cc Hr -MRCP -unremarkable -advance diet as tolerated -Consult surgery -Consult GI I spent 35 minute on this patient with 29 minutes on care coordination and counseling. I discussed with consultants, RN, and pharmacy. Reviewed imaging and labs. I coordinated care with [facility]. I also discussed code status extensively (30 min) with patient since she had poor understanding of it. Discharge Condition Upon Discharge: stable Discharge Vital Signs Last Vital Signs Date Time Temp Pulse Resp B/P (MAP) Pulse Ox O2 Delivery O2 Flow Rate FiO2 06/08/20 11:53 98.0 78 19 95/58 (70) 97 06/08/20 09:00 Room Air Discharge Disposition Patient was discharged to home Discharge Diagnoses: (1) Pancreatitis (2) Biliary colic (3) Hiatal hernia (4) Intractable abdominal pain (5) Solitary lung nodule (6) Morbid obesity with BMI of 40.0-44.9, adult (7) Headache Micah Rodríguez M.D. Jun 08, 2020 12:09
--- NOTE | 2020-06-08 15:27 | NUR ---
NURSE NOTES: Pt was discharged home. Iv removed. VSS. Pt in stable condition. Paper perscription given to pt.
--- NOTE | 2020-06-08 16:31 | Surgery Progress Note ---
Surgery Progress Note Subjective Symptoms: improved, tolerating diet, voiding well, passing flatus, pain decreased Objective Last 24 Hour Vital Signs Date Time Temp Pulse Resp B/P (MAP) Pulse Ox O2 Delivery O2 Flow Rate FiO2 06/08/20 11:53 98.0 78 19 95/58 (70) 97 06/08/20 09:45 97.7 06/08/20 09:00 Room Air 06/08/20 08:00 98.1 69 18 120/67 (84) 97 06/08/20 07:51 97.7 06/08/20 04:00 97.7 60 18 102/60 (74) 98 06/08/20 00:00 98.4 89 20 109/69 (82) 96 06/07/20 21:00 Room Air 06/07/20 20:00 99.1 72 20 104/66 (79) 97 I&O Intake and Output 06/07/20 06/08/20 19:00 07:00 Intake Total 2250 ml 750 ml Balance 2250 ml 750 ml Intake Oral 900 ml IV Total 1350 ml 750 ml # Voids 3 2 Cardiovascular: RSR Respiratory: clear Abdomen: soft, non-tender, present bowel sounds Extremities: no edema, no tenderness, no cyanosis Laboratory Tests Test 06/08/20 06:10 White Blood Count 5.9 K/UL (4.8-10.8) Red Blood Count 4.01 M/UL (4.20-5.40) L Hemoglobin 12.3 G/DL (12.0-16.0) Hematocrit 37.0 % (37.0-47.0) Mean Corpuscular Volume 92 FL (80-99) Mean Corpuscular Hemoglobin 30.6 PG (27.0-31.0) Mean Corpuscular Hemoglobin Concent 33.2 G/DL (32.0-36.0) Red Cell Distribution Width 12.0 % (11.6-14.8) Platelet Count 280 K/UL (150-450) Mean Platelet Volume 6.5 FL (6.5-10.1) Neutrophils (%) (Auto) 39.8 % (45.0-75.0) L Lymphocytes (%) (Auto) 50.2 % (20.0-45.0) H Monocytes (%) (Auto) 4.9 % (1.0-10.0) Eosinophils (%) (Auto) 4.1 % (0.0-3.0) H Basophils (%) (Auto) 1.0 % (0.0-2.0) Sodium Level 139 MMOL/L (136-145) Potassium Level 3.9 MMOL/L (3.5-5.1) Chloride Level 107 MMOL/L (98-107) Carbon Dioxide Level 27 MMOL/L (21-32) Anion Gap 5 mmol/L (5-15) Blood Urea Nitrogen 9 mg/dL (7-18) Creatinine 0.8 MG/DL (0.55-1.30) Estimat Glomerular Filtration Rate > 60 mL/min (>60) Glucose Level 88 MG/DL (74-106) Calcium Level 8.5 MG/DL (8.5-10.1) Total Bilirubin 0.4 MG/DL (0.2-1.0) Aspartate Amino Transf (AST/SGOT) 19 U/L (15-37) Alanine Aminotransferase (ALT/SGPT) 34 U/L (12-78) Alkaline Phosphatase 88 U/L (46-116) Total Protein 6.9 G/DL (6.4-8.2) Albumin 3.0 G/DL (3.4-5.0) L Globulin 3.9 g/dL Albumin/Globulin Ratio 0.8 (1.0-2.7) L Amylase Level 46 U/L (25-115) Lipase 91 U/L (73-393) Plan Problems: (1) Solitary lung nodule (2) Intractable abdominal pain Assessment & Plan: History of gallstone pancreatitis and acute cholecystitis status post cholecystectomy at [facility] in February 2020. Pancreatic stent placed for pancreatitis prior at [facility] and removed in March 2020. Since has been having intermittent abdominal pain epigastric region denies any alcohol use believes may be her pancreatitis again. In emergency department labs normal lipase normal no signs of pancreatitis pain consistent as per patient. CT reviewed no acute findings noted. Examination benign at the bedside. No acute surgical invention indicated recommend at this time. Potential related to gastritis. No biliary or liver concerns at this time identified. Recommend diet as tolerated. Will follow with recommendations thank you {Pending MRCP imaging reviewed okay for d/c f/u with primary surgeon upon d/c thank you Lack of enteric contrast limits assessment of the GI tract. There are a few colonic diverticula. No evidence of diverticulitis. Normal appendix. No small bowel distention. No free or loculated intraperitoneal gas or fluid. Distal esophagus, stomach, duodenum are unremarkable. There is a small but complex umbilical hernia which contains only fat. Lack of IV contrast limits assessment of the solid organs. The gallbladder has been removed. The liver, bile ducts, pancreas, spleen, adrenals, kidneys are unremarkable. There is a small accessory splenule incidentally noted. No renal arterial calculi, hydronephrosis, or hydroureter. The uterus and ovaries are unremarkable. The bladder is somewhat distended. The included lung bases demonstrate a 2 mm nodule at the posterior right lung base, image 18 series 5. The bones are unremarkable. Impression: Limited assessment of the GI tract, due to lack of enteric contrast administration. No gross acute abnormality. 2 mm right lobe lung nodule. No further follow-up necessary if there are no significant risk factors for lung carcinoma. If there are significant risk factors, recommend 6-12 month follow-up CT scan Incidental findings as noted, including small umbilical hernia contains only fat , small accessory splenule (3) Cholelithiasis (4) Morbid obesity with BMI of 40.0-44.9, adult (5) Pancreatitis (6) Hiatal hernia (7) Biliary colic (8) Gastritis (9) Headache Domingo Peter Jun 08, 2020 16:31
== END 2020-06-08 15:12 | disposition home or self-care (01) | DRG 282 ==
LOC: EMR 10:50 → 4E 12:47 → EDBEDREQ 14:54
DX: K85.90 Acute pancreatitis without necrosis or infection, unspecified (principal); Z68.41 Body mass index [BMI] 40.0-44.9, adult; E66.01 Morbid (severe) obesity due to excess calories; Z88.8 Allergy status to other drugs, medicaments and biological substances; K44.9 Diaphragmatic hernia without obstruction or gangrene; R91.1 Solitary pulmonary nodule; R51 Headache; K80.20 Calculus of gallbladder without cholecystitis without obstruction
CPT/HCPCS: 36415; 71045; 74176; 74181; 80053; 80061; 80307; 81003; 81025; 82150; 83036; 83690; 83735; 84443; 85025; 96361; 96374; 96375; 96376; 99285; J2405; J7030; U0002

== ENCOUNTER 2020-11-08 16:49 | Emergency (ER) | payer MEDICAID ==
[~2020-11-08] VITALS: Ht 154.9 cm; Wt 104.3 kg
[~2020-11-08 16:49] MED LIST changes: +DULCOLAX10 MG RC; +HYDROCODON-ACE1 EA15 ORAL
[2020-11-08 17:01] VITALS: BP 136/73
--- NOTE | 2020-11-08 17:12 | NUR ---
ED Nurse Note:pt. came from home with swelling at the covid vaccination site , no fever reported
[2020-11-08 17:17] LABS: APPEARANCE,URINE CLOUDY; BILIRUBIN, URINE NEGATIVE (NEGATIVE); COLOR,URINE PALE YELLOW; GLUCOSE, URINE (UA) NEGATIVE (NEGATIVE); KETONES,URINE NEGATIVE (NEGATIVE); LEUKOCYTE ESTERASE ,URINE 3+ (NEGATIVE); NITRITE,URINE NEGATIVE (NEGATIVE); PH,URINE 5 (4.5-8.0); PROTEIN,URINE 2+ (NEGATIVE); UROBILINOGEN,URINE NORMAL MG/DL (0.0-1.0)
[2020-11-08] MEDS ORDERED: Ketorolac 30mg Inj IV ONE (17:45)
[2020-11-08 17:54] LABS: BASOPHILS % (AUTO) 0.4 % (0.0-2.0); EOSINOPHILS % (AUTO) 0.4 % (0.0-3.0); HEMOGLOBIN 13.6 G/DL (12.0-16.0); LYMPHOCYTES % (AUTO) 22.4 % (20.0-45.0); MEAN CORPUSCULAR VOLUME 93 FL (80-99); MONOCYTES % (AUTO) 4.4 % (1.0-10.0); NEUTROPHILS % (AUTO) 72.3 % (45.0-75.0); PLATELET COUNT 381 K/UL (150-450); RED BLOOD COUNT 4.61 M/UL (4.20-5.40); RED CELL DISTRIBUTION WIDTH 12.3 % (11.6-14.8); WHITE BLOOD COUNT 11.6 K/UL (4.8-10.8)
[2020-11-08 18:04] LABS: ANION GAP 10 mmol/L (5-15); BLOOD UREA NITROGEN 10 mg/dL (7-18); CALCIUM 9.3 MG/DL (8.5-10.1); CARBON DIOXIDE 24 MMOL/L (21-32); CHLORIDE 105 MMOL/L (98-107); CREATININE 0.8 MG/DL (0.55-1.30); POTASSIUM 3.8 MMOL/L (3.5-5.1); SODIUM 139 MMOL/L (136-145)
--- NOTE | 2020-11-08 18:08 | NUR ---
ED Nurse Note:pt. had CT scan done
[2020-11-08 18:09] LABS: ALANINE AMINOTRANSFERASE 36 U/L (12-78); ALBUMIN 3.5 G/DL (3.4-5.0); ALBUMIN/GLOBULIN RATIO 0.8 (1.0-2.7); ALKALINE PHOSPHATASE 100 U/L (46-116); ASPARTATE AMINO TRANSFERASE 23 U/L (15-37); BILIRUBIN,TOTAL 0.2 MG/DL (0.2-1.0)
--- NOTE | 2020-11-08 18:10 | Diagnostic Imaging Report ---
EXAM: CT Abdomen and Pelvis Without Intravenous Contrast CLINICAL HISTORY: PAIN TECHNIQUE: Axial computed tomography images of the abdomen and pelvis without intravenous contrast. CTDI is 17.70 mGy and DLP is 902.10 mGy-cm. One or more of the following dose reduction techniques were used: automated exposure control, adjustment of the mA and/or kV according to patient size, use of iterative reconstruction technique. COMPARISON: Comparison 06/06/2020 FINDINGS: ABDOMEN: Liver: Unremarkable. Gallbladder and bile ducts: Status post cholecystectomy. Pancreas: Unremarkable. Spleen: Unremarkable. Adrenals: Unremarkable. Kidneys and ureters: Unremarkable. No obstructing stones. No hydronephrosis. Stomach and bowel: Unremarkable. PELVIS: Appendix: Normal appendix. Bladder: Unremarkable. Reproductive: Unremarkable as visualized. ABDOMEN and PELVIS: Intraperitoneal space: Unremarkable. No free air. No significant fluid collection. Bones/joints: No acute fracture. Soft tissues: Fat-containing umbilical hernia. Vasculature: Unremarkable. Lymph nodes: Unremarkable. IMPRESSION: No acute abnormality.
--- NOTE | 2020-11-08 18:42 | Emergency Room Report ---
History of Present Illness General Chief Complaint: Female Urogenital Problems Source: Patient Present Illness HPI This patient states that for the past 4 days she has had pain in the supra-pubic region. She was seen here at [facility] on Friday, 4 days ago, and diagnosed with a urinary tract infection. She has been on Macrobid, Pyridium and [place] that was given to her at that time. She states that her symptoms continue. She continues to have pain. She states she is also had nausea. She denies vomiting. She denies diarrhea. She denies dysuria or hematuria. She denies fever or chills. She states that her last menses was the fourth of this month and was normal. She states that she is sexually active with the same partner for the past 2 years and has no suspicion or concerns about sexually transmitted infection. Allergies: Coded Allergies: IODINE (Verified Allergy, Unknown, 01/14/20) Shrimp (Verified Allergy, Unknown, 12/20/16) COVID-19 Screening Contact w/high risk pt: No Recent Travel to affected area: No Experienced COVID-19 symptoms?: No COVID-19 Testing performed YARD HAND: No Patient History Past Medical History: none, see triage record Past Surgical History: rainer Social History: Denies: smoking, alcohol use, drug use Now: No - tube oligation Reviewed Nursing Documentation: PMH: Agreed; PSxH: Agreed Nursing Documentation-PMH Past Medical History: No History, Except For Hx Cardiac Problems: No Hx Cancer: No Hx Gastrointestinal Problems: Yes - Cholecystectomy, "pancreas problem" Hx Neurological Problems: No Review of Systems All Other Systems: negative except mentioned in HPI Physical Exam Vital Signs Date Time Temp Pulse Resp B/P (MAP) Pulse Ox O2 Delivery O2 Flow Rate FiO2 11/08/20 16:53 98.1 91 17 136/73 (94) 99 Room Air Sp02 EP Interpretation: reviewed, normal General Appearance: no apparent distress, alert, GCS 15, non-toxic Head: normocephalic, atraumatic Eyes: bilateral eye normal inspection, bilateral eye PERRL ENT: hearing grossly normal, normal pharynx, no angioedema, normal voice Neck: full range of motion, supple/symm/no masses Respiratory: chest non-tender, lungs clear, normal breath sounds, no respiratory distress, no retraction, no accessory muscle use, speaking full sentences Cardiovascular #1: regular rate, rhythm, no edema Gastrointestinal: normal bowel sounds, soft, non-distended, no guarding, no rebound, tenderness - TTP supra-pubic region. Rectal: deferred Musculoskeletal: back normal, normal range of motion, gait/station normal, non- tender Neurologic: alert, motor strength/tone normal, oriented x3, sensory intact, responsive, speech normal Psychiatric: judgement/insight normal, memory normal, mood/affect normal, no suicidal/homicidal ideation Skin: no rash, normal color Medical Decision Making Diagnostic Impression: Primary Impression: Pyelonephritis ER Course This patient is found to have a urinary tract infection. The patient does have pain in her right flank and given how severe her pain was I did obtain a CT of the abdomen pelvis to assess for urolithiasis. However, the CT is unremarkable there is no evidence of urolithiasis. The patient required doses of morphine. Possibly this patient has a high narcotic tolerance. The patient was given IV antibiotics here in the emergency department. Patient's laboratory work-up is reassuring. The patient is afebrile. The patient has had no vomiting. I will place the patient on a course of oral antibiotics. The patient was instructed to follow-up closely with her primary care physician for resolution of the infection. The patient is given close return precautions and follow-up instructions. Laboratory Tests Test 11/08/20 17:05 11/08/20 17:25 Urine Color Pale yellow Urine Appearance Cloudy Urine pH 5 (4.5-8.0) Urine Specific [place] 1.020 (1.005-1.035) Urine Protein 2+ (NEGATIVE) H Urine Glucose (UA) Negative (NEGATIVE) Urine Ketones Negative (NEGATIVE) Urine Blood 5+ (NEGATIVE) H Urine Nitrite Negative (NEGATIVE) Urine Bilirubin Negative (NEGATIVE) Urine Urobilinogen Normal MG/DL (0.0-1.0) Urine Leukocyte Esterase 3+ (NEGATIVE) H Urine RBC Tntc /HPF (0 - 2) H Urine WBC 20-30 /HPF (0 - 2) H Urine Squamous Epithelial Cells Many /LPF (NONE/OCC) H Urine Bacteria Many /HPF (NONE) H Urine HCG, Qualitative Negative (NEGATIVE) White Blood Count 11.6 K/UL (4.8-10.8) H Red Blood Count 4.61 M/UL (4.20-5.40) Hemoglobin 13.6 G/DL (12.0-16.0) Hematocrit 43.0 % (37.0-47.0) Mean Corpuscular Volume 93 FL (80-99) Mean Corpuscular Hemoglobin 29.5 PG (27.0-31.0) Mean Corpuscular Hemoglobin Concent 31.6 G/DL (32.0-36.0) L Red Cell Distribution Width 12.3 % (11.6-14.8) Platelet Count 381 K/UL (150-450) Mean Platelet Volume 6.2 FL (6.5-10.1) L Neutrophils (%) (Auto) 72.3 % (45.0-75.0) Lymphocytes (%) (Auto) 22.4 % (20.0-45.0) Monocytes (%) (Auto) 4.4 % (1.0-10.0) Eosinophils (%) (Auto) 0.4 % (0.0-3.0) Basophils (%) (Auto) 0.4 % (0.0-2.0) Sodium Level 139 MMOL/L (136-145) Potassium Level 3.8 MMOL/L (3.5-5.1) Chloride Level 105 MMOL/L (98-107) Carbon Dioxide Level 24 MMOL/L (21-32) Anion Gap 10 mmol/L (5-15) Blood Urea Nitrogen 10 mg/dL (7-18) Creatinine 0.8 MG/DL (0.55-1.30) Estimated Glomerular Filtration Rate > 60 mL/min (>60) Glucose Level 81 MG/DL (74-106) Calcium Level 9.3 MG/DL (8.5-10.1) Total Bilirubin 0.2 MG/DL (0.2-1.0) Aspartate Amino Transferase (AST) 23 U/L (15-37) Alanine Aminotransferase (ALT) 36 U/L (12-78) Alkaline Phosphatase 100 U/L (46-116) Total Protein 7.9 G/DL (6.4-8.2) Albumin 3.5 G/DL (3.4-5.0) Globulin 4.4 g/dL Albumin/Globulin Ratio 0.8 (1.0-2.7) L Lipase 100 U/L (73-393) CT/MRI/US Diagnostic Results CT/MRI/US Diagnostic Results : Imaging Test Ordered: CT abd/pelvis Impression IMPRESSION: No acute abnormality. Last Vital Signs Date Time Temp Pulse Resp B/P (MAP) Pulse Ox O2 Delivery O2 Flow Rate FiO2 11/08/20 18:40 98.1 11/08/20 17:01 91 17 136/73 99 Room Air Status: improved Disposition: HOME, SELF-CARE Condition: Improved Referrals: NOT CHOSEN IPA/MD,REFERRING (PCP) Patient Instructions: Urinary Tract Infection Kait Ram DO Nov 08, 2020 18:42
[2020-11-08] MEDS ORDERED: Morphine Sulfate 4mg/ml Inj (IV USE ONLY) IVP ONE ×2 (18:45→19:30)
--- NOTE | 2020-11-08 19:15 | NUR ---
ED Nurse Note: Recived care from bruna. Per pt she began to have bilateral flank pain starting this moring about 9am at work, she has frequency of uriantion, bleeding when she urinates and suprapubic pain. SHe is resting comfortably on assement, vitals are stable on RA, speaks in full sentances, breathing is even and unlabored.
[2020-11-08 19:18] VITALS: BP 135/72
[2020-11-08] MEDS ORDERED: BACTRIM-DS1 EA ORAL (20:05)
[2020-11-08] MEDS ORDERED: IBUPROFEN800 MG ORAL (20:05)
[2020-11-08] MEDS ORDERED: HYDROCODON-ACE1 EA15 ORAL (20:05)
[2020-11-08 20:18] VITALS: BP 142/85
--- NOTE | 2020-11-08 20:18 | NUR ---
ER DISCHARGE NOTE: Patient is cleared to be discharged per ERMD, pt is aox4, on room air, with stable vital signs. pt was given dc and prescription instructions, pt was able to verbalize understanding, pt id band and iv site removed without complications. pt is able to ambulate with steady gait. pt took all belongings. Pt left in a private car
== END 2020-11-08 20:19 | disposition home or self-care (01) ==
LOC: EMR 17:11
DX: N12 Tubulo-interstitial nephritis, not specified as acute or chronic (principal); Z90.49 Acquired absence of other specified parts of digestive tract; Z91.013 Allergy to seafood; Z88.8 Allergy status to other drugs, medicaments and biological substances
CPT/HCPCS: 36415; 74176; 80053; 81003; 81025; 83690; 85025; 87086; 96361; 96374; 96375; 96376; J1885; J2270; J7030; Z7502; 99284

== ENCOUNTER 2020-12-24 13:04 | Emergency (ER) | payer MEDICAID ==
[~2020-12-24] VITALS: Ht 154.9 cm; Wt 115.7 kg
[~2020-12-24 13:04] MED LIST changes: +BACTRIM-DS1 EA ORAL; +IBUPROFEN800 MG ORAL
[2020-12-24] MEDS ORDERED: fentaNYL 100 mcg/2 mL IV ONE (14:00)
[2020-12-24 14:06] VITALS: BP 132/56
--- NOTE | 2020-12-24 14:07 | Emergency Room Report ---
History of Present Illness General Chief Complaint: Abdominal Pain Present Illness HPI Disclaimer: Please note that this report is being documented using [employer] technology. This can lead to erroneous entry secondary to incorrect interpretation by the dictating instrument. HPI: 35-year old female history of cholecystectomy, pancreatitis presents with epigastric abdominal pain with nausea. She states pain 10-10 for the past 2 days radiating to the back. No vomiting. No diarrhea. No fevers. She states she had a cholecystectomy in March 2020. Last menstrual cycle December 01. 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 Patient History Last Menstrual Period: 11/29/20 Now: No Nursing Documentation-PMH Past Medical History: No Stated History Hx Cardiac Problems: No Hx Cancer: No Hx Gastrointestinal Problems: Yes - Cholecystectomy, "pancreas problem" Hx Neurological Problems: No Review of Systems All Other Systems: negative except mentioned in HPI Physical Exam Vital Signs Date Time Temp Pulse Resp B/P (MAP) Pulse Ox O2 Delivery O2 Flow Rate FiO2 12/24/20 13:20 98.1 86 18 120/80 (93) 100 Room Air Sp02 EP Interpretation: reviewed, normal General Appearance: well appearing, no apparent distress Head: normocephalic, atraumatic Eyes: bilateral eye PERRL, bilateral eye EOMI ENT: hearing grossly normal, moist mucus membranes Neck: full range of motion, supple Respiratory: lungs clear, normal breath sounds, no rhonchi, no respiratory distress, no retraction, no wheezing Cardiovascular #1: normal peripheral pulses, regular rate, rhythm, no murmur Gastrointestinal: soft, non-distended, no guarding, tenderness - Epigastric tenderness Genitourinary: CVA tenderness (R) Neurologic: alert, oriented x3, no focal defects Skin: normal color, warm/dry Medical Decision Making Diagnostic Impression: Primary Impression: Epigastric pain ER Course MDM: Differential included but not limited to pancreatitis, gastritis, GERD, retained gallstone to name a few Clinical course-laboratory studies CT scan ordered. CT scan showed no acute pathology. Laboratory studies had no significant abnormalities. Lipase normal. CT scan was ordered and showed no acute pathology. Patient given multiple doses of pain control. Suspect likely GERD or gastritis. Low suspicion for surgical abdominal disease. Low suspicion for infectious process. Patient discharged with antacids, dietary restrictions and follow-up with PMD. Given return precautions. Stable for discharge. Labs - Laboratory Tests Test 12/24/20 13:25 12/24/20 13:40 Urine Color Pale yellow Urine Appearance Clear Urine pH 6 (4.5-8.0) Urine Specific [place] 1.015 (1.005-1.035) Urine Protein Negative (NEGATIVE) Urine Glucose (UA) 1+ (NEGATIVE) H Urine Ketones Negative (NEGATIVE) Urine Blood 1+ (NEGATIVE) H Urine Nitrite Negative (NEGATIVE) Urine Bilirubin Negative (NEGATIVE) Urine Urobilinogen Normal MG/DL (0.0-1.0) Urine Leukocyte Esterase Negative (NEGATIVE) Urine RBC 0-2 /HPF (0 - 2) Urine WBC 0-2 /HPF (0 - 2) Urine Squamous Epithelial Cells Few /LPF (NONE/OCC) Urine Bacteria Few /HPF (NONE) Urine HCG, Qualitative Negative (NEGATIVE) Urine Opiates Screen Negative (NEGATIVE) Urine Barbiturates Screen Negative (NEGATIVE) Phencyclidine (PCP) Screen Negative (NEGATIVE) Urine Amphetamines Screen Negative (NEGATIVE) Urine Benzodiazepines Screen Negative (NEGATIVE) Urine Cocaine Screen Negative (NEGATIVE) Urine Marijuana (THC) Screen Negative (NEGATIVE) White Blood Count 7.9 K/UL (4.8-10.8) Red Blood Count 5.04 M/UL (4.20-5.40) Hemoglobin 14.9 G/DL (12.0-16.0) Hematocrit 47.7 % (37.0-47.0) H Mean Corpuscular Volume 95 FL (80-99) Mean Corpuscular Hemoglobin 29.6 PG (27.0-31.0) Mean Corpuscular Hemoglobin Concent 31.3 G/DL (32.0-36.0) L Red Cell Distribution Width 12.1 % (11.6-14.8) Platelet Count 367 K/UL (150-450) Mean Platelet Volume 6.6 FL (6.5-10.1) Neutrophils (%) (Auto) 67.9 % (45.0-75.0) Lymphocytes (%) (Auto) 27.5 % (20.0-45.0) Monocytes (%) (Auto) 2.9 % (1.0-10.0) Eosinophils (%) (Auto) 1.3 % (0.0-3.0) Basophils (%) (Auto) 0.5 % (0.0-2.0) Sodium Level 140 MMOL/L (136-145) Potassium Level 3.6 MMOL/L (3.5-5.1) Chloride Level 104 MMOL/L (98-107) Carbon Dioxide Level 24 MMOL/L (21-32) Anion Gap 12 mmol/L (5-15) Blood Urea Nitrogen 14 mg/dL (7-18) Creatinine 0.9 MG/DL (0.55-1.30) Estimated Glomerular Filtration Rate > 60 mL/min (>60) Glucose Level 154 MG/DL (74-106) H Calcium Level 9.1 MG/DL (8.5-10.1) Magnesium Level 2.0 MG/DL (1.8-2.4) Total Bilirubin 0.4 MG/DL (0.2-1.0) Aspartate Amino Transferase (AST) 20 U/L (15-37) Alanine Aminotransferase (ALT) 31 U/L (12-78) Alkaline Phosphatase 104 U/L (46-116) Total Protein 8.5 G/DL (6.4-8.2) H Albumin 3.9 G/DL (3.4-5.0) Globulin 4.6 g/dL Albumin/Globulin Ratio 0.8 (1.0-2.7) L Lipase 118 U/L (73-393) On reevaluation: Patient resting comfortably Plan-discharge home, antacids, follow-up PMD CT/MRI/US Diagnostic Results CT/MRI/US Diagnostic Results : Imaging Test Ordered: CT abdomen pelvis Impression No acute pathology Last Vital Signs Date Time Temp Pulse Resp B/P (MAP) Pulse Ox O2 Delivery O2 Flow Rate FiO2 12/24/20 13:20 98.1 86 18 120/80 (93) 100 Room Air Status: improved Disposition: HOME, SELF-CARE Condition: Stable Scripts Mag Hydrox/Al Hydrox/Simeth (Maalox Advanced Suspension) 355 Ml Oral.susp 20 ML PO Q6HR PRN for Epigastric pain, #355 ML Prov: Oscar Treadwell M.D. 12/24/20 Ondansetron (Zofran) 4 Mg Tablet 4 MG ORAL Q8H PRN for Nausea & Vomiting, #10 TAB 0 Refills Prov: Oscar Treadwell M.D. 12/24/20 Famotidine* (Pepcid 20mg tablet*) 20 Mg Tablet 20 MG ORAL TWICE A DAY for Gerd, #60 TAB 0 Refills Prov: Oscar Treadwell M.D. 12/24/20 Referrals: NOT CHOSEN JOSE MARTIN/,REFERRING (PCP) Oscar Treadwell M.D. Dec 24, 2020 14:07
[2020-12-24 14:10] LABS: BASOPHILS % (AUTO) 0.5 % (0.0-2.0); EOSINOPHILS % (AUTO) 1.3 % (0.0-3.0); HEMATOCRIT 47.7 % (37.0-47.0); HEMOGLOBIN 14.9 G/DL (12.0-16.0); LYMPHOCYTES % (AUTO) 27.5 % (20.0-45.0); MEAN CORPUSCULAR VOLUME 95 FL (80-99); MONOCYTES % (AUTO) 2.9 % (1.0-10.0); NEUTROPHILS % (AUTO) 67.9 % (45.0-75.0); PLATELET COUNT 367 K/UL (150-450); RED BLOOD COUNT 5.04 M/UL (4.20-5.40); RED CELL DISTRIBUTION WIDTH 12.1 % (11.6-14.8); WHITE BLOOD COUNT 7.9 K/UL (4.8-10.8)
[2020-12-24 14:10] LABS: APPEARANCE,URINE CLEAR; BILIRUBIN, URINE NEGATIVE (NEGATIVE); COLOR,URINE PALE YELLOW; KETONES,URINE NEGATIVE (NEGATIVE); LEUKOCYTE ESTERASE ,URINE NEGATIVE (NEGATIVE); NITRITE,URINE NEGATIVE (NEGATIVE); PH,URINE 6 (4.5-8.0); PROTEIN,URINE NEGATIVE (NEGATIVE); UROBILINOGEN,URINE NORMAL MG/DL (0.0-1.0)
--- NOTE | 2020-12-24 14:10 | NUR ---
pt arrived for upper abd pain for 2 days, radiating to bilateral back. pt states unable to eat, radiating to flank, vomiting when attempting to drink. pt denies cough/fever/sob/diarrhea. pt madan pain with urination. pt states hx pancreatitis. pt placed on continuous cardiac/O2 monitor. iv placed. blood drawn, labs sent, ua sent. pt medicated per eMAR. VSS. will continue to monitor.
[2020-12-24 14:20] LABS: ANION GAP 12 mmol/L (5-15); BLOOD UREA NITROGEN 14 mg/dL (7-18); CALCIUM 9.1 MG/DL (8.5-10.1); CARBON DIOXIDE 24 MMOL/L (21-32); CHLORIDE 104 MMOL/L (98-107); CREATININE 0.9 MG/DL (0.55-1.30); POTASSIUM 3.6 MMOL/L (3.5-5.1); SODIUM 140 MMOL/L (136-145)
[2020-12-24 14:20] LABS: GLUCOSE, URINE (UA) 1+ (NEGATIVE)
[2020-12-24 14:24] LABS: ALANINE AMINOTRANSFERASE 31 U/L (12-78); ALBUMIN 3.9 G/DL (3.4-5.0); ALBUMIN/GLOBULIN RATIO 0.8 (1.0-2.7); ALKALINE PHOSPHATASE 104 U/L (46-116); ASPARTATE AMINO TRANSFERASE 20 U/L (15-37); BILIRUBIN,TOTAL 0.4 MG/DL (0.2-1.0)
[2020-12-24] MEDS ORDERED: Lidocaine 2% Visc 15ml soln ORAL ONE (14:45)
[2020-12-24] MEDS ORDERED: Dicyclomine HCl 10mg/5ml oral soln ORAL ONE (14:45)
[2020-12-24] MEDS ORDERED: Mylanta II UD 30ml ORAL ONE (14:45)
[2020-12-24 14:56] VITALS: BP 139/81
--- NOTE | 2020-12-24 15:23 | Diagnostic Imaging Report ---
EXAM: CT Abdomen and Pelvis Without Intravenous Contrast CLINICAL HISTORY: PAIN TECHNIQUE: Axial computed tomography images of the abdomen and pelvis without intravenous contrast. CTDI is 18.1 mGy and DLP is 958.1 mGy-cm. One or more of the following dose reduction techniques were used: automated exposure control, adjustment of the mA and/or kV according to patient size, use of iterative reconstruction technique. COMPARISON: Abdomen and pelvis CT of 11/08/20 FINDINGS: Lung bases: Unremarkable. No mass. No consolidation. ABDOMEN: Liver: Unremarkable. Gallbladder and bile ducts: Cholecystectomy. No ductal dilation. Pancreas: Unremarkable. No ductal dilation. Spleen: Unremarkable. No splenomegaly. Adrenals: Unremarkable. No mass. Kidneys and ureters: Unremarkable. No obstructing stones. No hydronephrosis. Stomach and bowel: Unremarkable. No obstruction. No mucosal thickening. PELVIS: Appendix: No findings to suggest acute appendicitis. Bladder: Unremarkable. No stones. Reproductive: Unremarkable as visualized. ABDOMEN and PELVIS: Intraperitoneal space: Unremarkable. No free air. No significant fluid collection. Bones/joints: No acute fracture. No dislocation. Soft tissues: Fat-containing umbilical hernia. Vasculature: Unremarkable. No abdominal aortic aneurysm. Lymph nodes: Unremarkable. No enlarged lymph nodes. IMPRESSION: No acute abdominal or pelvic pathology.
[2020-12-24] MEDS ORDERED: Morphine Sulfate 4mg/ml Inj (IV USE ONLY) IVP ONE (15:45)
[2020-12-24] MEDS ORDERED: FAMOTIDINE20 MG ORAL (15:57)
[2020-12-24] MEDS ORDERED: MAALOX ADVANCE770 ML PO (15:57)
[2020-12-24] MEDS ORDERED: ZOFRAN4 MG ORAL (15:57)
--- NOTE | 2020-12-24 16:36 | NUR ---
ED Nurse Note: Pt cleared by health care Provider for discharge. DC instructions/prescription was given and explained to pt and verbalized understanding of teachings. All medical deviecs such as ID band removed. Pt is AAO x4, ambulatory and left with all personal belongings.
[2020-12-24 16:37] VITALS: BP 112/79
== END 2020-12-24 16:38 | disposition home or self-care (01) ==
LOC: EMR 13:56
DX: R10.13 Epigastric pain (principal); R11.0 Nausea; Z90.49 Acquired absence of other specified parts of digestive tract; Z91.041 Radiographic dye allergy status; Z91.013 Allergy to seafood
CPT/HCPCS: 36415; 74176; 80053; 80307; 81003; 81025; 83690; 83735; 85025; 96361; 96374; 96375; 96376; J2270; J2405; J3010; J7030; Z7502; 99284

== ENCOUNTER 2021-01-06 13:20 | Emergency (ER) | payer MEDICAID ==
[~2021-01-06] VITALS: Ht 154.9 cm; Wt 101.6 kg
[~2021-01-06 13:20] MED LIST changes: +MAALOX ADVANCE770 ML PO; +ZOFRAN4 MG ORAL
--- NOTE | 2021-01-06 13:44 | NUR ---
Patient reported to the ER with c/o vomiting ( clear liquid), pain to lower back and nausea x 3 days. NKA - iodine, shrimp- anaphylaxis No significant medical history
[2021-01-06 13:45] VITALS: BP 132/92
--- NOTE | 2021-01-06 14:01 | NUR ---
pt arrives to ER with complaints of severe abdominal pain x few days with vomiting . pt states pain radiates to her back and localized in her lower abdomen. pt is describing pain as tender constant and sharp in nature. pt states history of cholecystectomy and hysterectomy. pt is AAOX4.
[2021-01-06 14:02] LABS: APPEARANCE,URINE CLEAR; BILIRUBIN, URINE NEGATIVE (NEGATIVE); COLOR,URINE PALE YELLOW; GLUCOSE, URINE (UA) NEGATIVE (NEGATIVE); KETONES,URINE NEGATIVE (NEGATIVE); LEUKOCYTE ESTERASE ,URINE NEGATIVE (NEGATIVE); NITRITE,URINE NEGATIVE (NEGATIVE); PH,URINE 6 (4.5-8.0); PROTEIN,URINE NEGATIVE (NEGATIVE); UROBILINOGEN,URINE NORMAL MG/DL (0.0-1.0)
--- NOTE | 2021-01-06 14:04 | Emergency Room Report ---
History of Present Illness General Chief Complaint: Abdominal Pain Source: Patient Present Illness HPI Disclaimer: Please note that this report is being documented using [employer] technology. This can lead to erroneous entry secondary to incorrect interpretation by the dictating instrument. HPI: 35-year-old female presents for evaluation of abdominal pain and vomiting. Symptoms present 3 days. She reports diffuse abdominal cramping persistent nausea and clear vomitus with any attempted eating or drinking. States she has some diarrhea as well but not too severe. Denies fever or chills. Has recurrent abdominal pain is using Maalox and Pepcid at home without significant improvement. She states she has had cholecystectomy and tubal ligation. She had a postop pancreatitis but otherwise had no other complications. Patient seen in the emergency department earlier this month with similar symptoms. Labs and CT scan were performed at that time and were unremarkable. States this feels similar to that prior episode. Denies dysuria hematuria. Denies vaginal bleeding or vaginal discharge. Denies melena, hematochezia or hemoptysis. Denies chest pain, palpitations, cough congestion. PMH: Denied PSH: Cholecystectomy, tubal ligation Allergies: Iodine Social Hx: Reviewed Allergies: Coded Allergies: IODINE (Verified Allergy, Unknown, 01/14/20) Shrimp (Verified Allergy, Unknown, 12/20/16) COVID-19 Screening Contact w/high risk pt: No Recent Travel to affected area: No Experienced COVID-19 symptoms?: No COVID-19 Testing performed [employer]: No COVID-19 Testing Source: not tested Patient History Last Menstrual Period: Dec 01, 2020 Now: No : 3 Para: 3 Nursing Documentation-PMH Hx Cardiac Problems: No Hx Cancer: No Hx Gastrointestinal Problems: Yes - Cholecystectomy, "pancreas problem" Hx Neurological Problems: No Review of Systems All Other Systems: negative except mentioned in HPI Physical Exam Vital Signs Date Time Temp Pulse Resp B/P (MAP) Pulse Ox O2 Delivery O2 Flow Rate FiO2 01/06/21 13:33 97.9 68 20 100 Room Air 01/06/21 13:45 132/92 General: Awake and alert, no acute distress HEENT: NC/AT. EOMI. Cardiovascular: RRR. S1 and S2 normal. No murmur appreciated Resp: Normal work of breathing. No cough, wheezing or crackles appreciated Abdomen: Obese abdomen. Abdomen is soft, nondistended. Tender to palpation in the periumbilical region without guarding. No rebound. Skin: Intact. No abrasions, laceration or rash over the exposed skin MSK: Normal tone and bulk. Moving all extremities. No obvious deformity. Neuro: Awake and alert. Mentating appropriately. Medical Decision Making Diagnostic Impression: Primary Impression: Abdominal pain ER Course 35-year-old female prior history of cholecystectomy tubal ligation presents for evaluation of abdominal pain vomiting and diarrhea over the past 3 days. Differential includes not limited to gastritis, gastroenteritis, pancreatitis, hepatitis, bowel obstruction, appendicitis, nephrolithiasis, UTI, fibroids, pyelonephritis to name a few. Similar to patient's prior visits. 2 CT scans performed thus far in 2020 showing no acute pathology and no evidence of aortic aneurysm. Labs are within normal limits. No evidence of infection or other abnormalities. Abdominal x-ray shows nonspecific bowel gas pattern but no signs of significant obstruction. Given the patient's previous CTs and will believe a repeat CT scan is needed at this time. Pain improved after receiving her medications. Will discharge and strongly encouraged her to follow-up with her PMD for referral to GI. Patient would benefit from endoscopy and colonoscopy. I explained this to her and she understands and agrees with this treatment plan. Laboratory Tests Test 01/06/21 13:13 01/06/21 13:51 01/06/21 13:53 Human Chorionic Gonadotropin, Quant < 1 mIU/mL (1-6) L Urine Color Pale yellow Urine Appearance Clear Urine pH 6 (4.5-8.0) Urine Specific [place] 1.005 (1.005-1.035) Urine Protein Negative (NEGATIVE) Urine Glucose (UA) Negative (NEGATIVE) Urine Ketones Negative (NEGATIVE) Urine Blood Negative (NEGATIVE) Urine Nitrite Negative (NEGATIVE) Urine Bilirubin Negative (NEGATIVE) Urine Urobilinogen Normal MG/DL (0.0-1.0) Urine Leukocyte Esterase Negative (NEGATIVE) White Blood Count 9.2 K/UL (4.8-10.8) Red Blood Count 4.94 M/UL (4.20-5.40) Hemoglobin 14.7 G/DL (12.0-16.0) Hematocrit 46.0 % (37.0-47.0) Mean Corpuscular Volume 93 FL (80-99) Mean Corpuscular Hemoglobin 29.8 PG (27.0-31.0) Mean Corpuscular Hemoglobin Concent 32.1 G/DL (32.0-36.0) Red Cell Distribution Width 11.8 % (11.6-14.8) Platelet Count 412 K/UL (150-450) Mean Platelet Volume 6.7 FL (6.5-10.1) Neutrophils (%) (Auto) 62.0 % (45.0-75.0) Lymphocytes (%) (Auto) 31.8 % (20.0-45.0) Monocytes (%) (Auto) 4.5 % (1.0-10.0) Eosinophils (%) (Auto) 1.1 % (0.0-3.0) Basophils (%) (Auto) 0.5 % (0.0-2.0) Sodium Level 140 MMOL/L (136-145) Potassium Level 4.0 MMOL/L (3.5-5.1) Chloride Level 107 MMOL/L (98-107) Carbon Dioxide Level 22 MMOL/L (21-32) Anion Gap 11 mmol/L (5-15) Blood Urea Nitrogen 9 mg/dL (7-18) Creatinine 0.8 MG/DL (0.55-1.30) Estimated Glomerular Filtration Rate > 60 mL/min (>60) Glucose Level 89 MG/DL (74-106) Calcium Level 9.3 MG/DL (8.5-10.1) Total Bilirubin 0.5 MG/DL (0.2-1.0) Aspartate Amino Transferase (AST) 22 U/L (15-37) Alanine Aminotransferase (ALT) 37 U/L (12-78) Alkaline Phosphatase 107 U/L (46-116) Total Protein 8.5 G/DL (6.4-8.2) H Albumin 3.9 G/DL (3.4-5.0) Globulin 4.6 g/dL Albumin/Globulin Ratio 0.8 (1.0-2.7) L Lipase 118 U/L (73-393) Other X-Ray Diagnostic Results Other X-Ray Diagnostic Results : X-Ray ordered: Abdomen # of Views/Limited Vs Complete: 1 View Indication: Pain EP Interpretation: Yes Interpretation: nonspecific bowel gas, no sbo Impression: No acute disease Electronically Signed by: Electronically signed by Dr. Avel Bess MD Last Vital Signs Date Time Temp Pulse Resp B/P (MAP) Pulse Ox O2 Delivery O2 Flow Rate FiO2 01/06/21 13:45 97.8 20 132/92 95 Room Air 01/06/21 13:33 68 Disposition: HOME, SELF-CARE Condition: Stable Scripts Hydrocodone/Acetaminophen 5-325* (HYDROCODONE/ACETAMINOPHEN 5-325*) 1 Each Tablet 1 TAB ORAL Q6H PRN for For Pain, #5 TAB 0 Refills Prov: Avel Bess MD 01/06/21 Referrals: NOT CHOSEN [facility]/,REFERRING (PCP) Avel Bess MD Jan 06, 2021 14:04
[2021-01-06 14:12] LABS: BASOPHILS % (AUTO) 0.5 % (0.0-2.0); EOSINOPHILS % (AUTO) 1.1 % (0.0-3.0); HEMOGLOBIN 14.7 G/DL (12.0-16.0); LYMPHOCYTES % (AUTO) 31.8 % (20.0-45.0); MEAN CORPUSCULAR VOLUME 93 FL (80-99); MONOCYTES % (AUTO) 4.5 % (1.0-10.0); PLATELET COUNT 412 K/UL (150-450); RED BLOOD COUNT 4.94 M/UL (4.20-5.40); RED CELL DISTRIBUTION WIDTH 11.8 % (11.6-14.8); WHITE BLOOD COUNT 9.2 K/UL (4.8-10.8)
[2021-01-06 14:27] LABS: ANION GAP 11 mmol/L (5-15); BLOOD UREA NITROGEN 9 mg/dL (7-18); CALCIUM 9.3 MG/DL (8.5-10.1); CARBON DIOXIDE 22 MMOL/L (21-32); CHLORIDE 107 MMOL/L (98-107); CREATININE 0.8 MG/DL (0.55-1.30); SODIUM 140 MMOL/L (136-145)
[2021-01-06] MEDS ORDERED: Morphine Sulfate 4mg/ml Inj (IV USE ONLY) IVP ONE ×2 (14:30→15:00)
[2021-01-06 14:31] LABS: ALANINE AMINOTRANSFERASE 37 U/L (12-78); ALBUMIN 3.9 G/DL (3.4-5.0); ALBUMIN/GLOBULIN RATIO 0.8 (1.0-2.7); ALKALINE PHOSPHATASE 107 U/L (46-116); ASPARTATE AMINO TRANSFERASE 22 U/L (15-37); BILIRUBIN,TOTAL 0.5 MG/DL (0.2-1.0)
--- NOTE | 2021-01-06 14:35 | NUR ---
pt states no relief at this time, provider notified received order for morphine.
--- NOTE | 2021-01-06 15:46 | Diagnostic Imaging Report ---
EXAM: XR Abdomen, 1 View CLINICAL HISTORY: ABD PAIN TECHNIQUE: Frontal supine view of the abdomen/pelvis. COMPARISON: No relevant prior studies available. FINDINGS: Gastrointestinal tract: Nonspecific bowel gas pattern. Bones/joints: No acute fracture. Cholecystectomy clips. IMPRESSION: Nonspecific bowel gas pattern.
[2021-01-06] MEDS ORDERED: HYDROCODON-ACE1 EA15 ORAL (15:49)
== END 2021-01-06 15:50 | disposition home or self-care (01) ==
LOC: EMR 13:50
DX: R10.9 Unspecified abdominal pain (principal); R11.10 Vomiting, unspecified; Z90.49 Acquired absence of other specified parts of digestive tract; Z91.041 Radiographic dye allergy status; Z91.013 Allergy to seafood
CPT/HCPCS: 36415; 74018; 80053; 81003; 83690; 84702; 85025; 96361; 96374; 96375; 96376; J2270; J2405; J7030; Z7502; 99284